=== PATIENT | male | born 1960 | race Caucasian/White ===

== ENCOUNTER 2021-10-08 19:01 | Emergency (ER) | payer BC, SELFPAY ==
[2021-10-08] VITALS (14 sets, daily range): BP systolic 148–184; BP diastolic 85–100; PULSE 72–95; RESP 16–20; TEMP 36.8–37.2; O2SAT 95–99
--- NOTE | 2021-10-08 19:32 | ED.GENADULT ---
HPI - General Adult General Chief complaint: Wound/Laceration Stated complaint: wound to leg Time Seen by Provider: 10/08/21 19:24 History of Present Illness HPI narrative: Patient is a 61-year-old gentleman who presents the emergency department with chief complaint of wound on the posterior aspect of the right leg and generalized rash. Patient states on Saturday the patient states that he felt an area that was uncomfortable in his calf area on the right side the patient states that the area is somewhat bruised and then has been progressively developing a rash over his entire body. Patient reports that it is erythematous patchy nonblanching and is not on urticaria the patient does state that it itches some denies angioedema denies shortness of breath. Related Data Home Medications Medication Instructions Recorded Confirmed atorvastatin 20 mg tablet tablet 10/08/21 clopidogrel 75 mg tablet tablet 10/08/21 lisinopril 20 mg tablet tablet 10/08/21 Allergies Allergy/AdvReac Type Severity Reaction Status Date / Time No Known Allergies Allergy Verified 10/08/21 19:12 Review of Systems Review of Systems: A 10 system review of systems was completed on the patient and is negative except for what is stated in the HPI. Nursing and ancillary documentation was reviewed. PMFSH Comments Peripheral artery disease hypertension high cholesterol Exam Narrative: GENERAL: Well-appearing, well-nourished, and in no acute distress. HEAD: Normocephalic, atraumatic. EYES: PERRLA and EOMI. ENT: Nares clear, no rhinorrhea or epistaxis. Mucous membranes moist. NECK: Supple. CHEST: Clear to auscultation. No respiratory distress. HEART: Regular rate and rhythm. No murmur heard. Normal peripheral pulses. ABDOMEN: Soft, nontender, nondistended, normal active bowel sounds. EXTREMITIES: Normal range of motion. No edema. SKIN: Warm, dry, erythematous rash over the extremities and trunk no angioedema there is an area of bruising NEURO: No focal deficits. Alert and oriented x3. PSYCH: Normal mood and affect. Course Vital Signs Vital signs: Vital Signs Temperature 36.8 C 10/08/21 19:08 Pulse Rate 95 10/08/21 19:08 Respiratory Rate 20 10/08/21 19:08 Blood Pressure 164/88 H 10/08/21 19:08 Pulse Oximetry 99 10/08/21 19:08 Oxygen Delivery Room Air 10/08/21 19:08 Temperature 37.2 C 10/08/21 19:46 Pulse Rate 87 10/08/21 19:20 Respiratory Rate 16 10/08/21 19:20 Blood Pressure 184/100 H 10/08/21 19:20 Pulse Oximetry 97 10/08/21 19:20 Oxygen Delivery Room Air 10/08/21 19:20 Medical Decision Making Vital Signs Vital Signs: Vital Signs Temperature 36.8 C 10/08/21 19:08 Pulse Rate 95 10/08/21 19:08 Respiratory Rate 20 10/08/21 19:08 Blood Pressure 164/88 H 10/08/21 19:08 Pulse Oximetry 99 10/08/21 19:08 Oxygen Delivery Room Air 10/08/21 19:08 Temperature 37.2 C 10/08/21 19:46 Pulse Rate 87 10/08/21 19:20 Respiratory Rate 16 10/08/21 19:20 Blood Pressure 184/100 H 10/08/21 19:20 Pulse Oximetry 97 10/08/21 19:20 Oxygen Delivery Room Air 10/08/21 19:20 Lab Data Result diagrams: 10/08/21 20:03 10/08/21 20:03 Labs: Lab Results 10/08/21 10/08/21 Range/Units 20:03 20:03 WBC 7.0 (4.5-10.0) K/mm3 RBC 4.49 L (4.6-6.20) M/mm3 Hgb 14.3 (14.0-18.0) g/dL Hct 41.7 L (42.0-52.0) % MCV 92.9 (80-100) fl MCH 31.8 (26-34) pg MCHC 34.3 (32-36) g/dl RDW 13.1 (11.5-14.5) % Plt Count 183 (150-375) k/mm3 MPV 9.3 (7.4-10.4) fl Immature Gran % (Auto) 0.3 (0-0.5) % Neut % (Auto) 66.4 (45.5-73.1) % Lymph % (Auto) 17.6 L (18.3-44.2) % [place] % (Auto) 9.0 H (2.6-8.5) % Eos % (Auto) 6.3 H (0-4.4) % Baso % (Auto) 0.4 (0.2-1.2) % Lymph # (Auto) 1.24 (0.9-3.2) K/mm3 [place] # (Auto) 0.6 (0.1-0.6) K/mm3 Eos # (Auto) 0.4 H (0-0.3) K/mm3 Baso # (Auto) 0.0 (0.0-0.1)
[2021-10-08] MEDS: methylPREDNISolone SOD SUCC 125 MG VIAL IV PUSH (20:08)
[2021-10-08] MEDS: FAMOTIDINE 20 MG/2 ML VIAL IV PUSH (20:08)
[2021-10-08 20:09] LABS: Basophils Percent Auto 0.4 % (0.2-1.2); Eosinophils Absolute Auto 0.4 K/mm3 (0-0.3); Eosinophils Percent Auto 6.3 % (0-4.4); Hematocrit 41.7 % (42.0-52.0); Hemoglobin 14.3 g/dL (14.0-18.0); Immature Granulocyte Absolute 0.02 K/mm3 (0.00-0.031); Immature Granulocyte Percent A 0.3 % (0-0.5); Lymphocytes Absolute Auto 1.24 K/mm3 (0.9-3.2); Lymphocytes Percent Auto 17.6 % (18.3-44.2); Mean Corpuscular HGB Conc 34.3 g/dl (32-36); Mean Corpuscular Hemoglobin 31.8 pg (26-34); Mean Corpuscular Volume 92.9 fl (80-100); Mean Platelet Volume 9.3 fl (7.4-10.4); Monocytes Absolute Auto 0.6 K/mm3 (0.1-0.6); Neutrophils Absolute Auto 4.7 K/mm3 (1.3-6.7); Neutrophils Percent Auto 66.4 % (45.5-73.1); Platelet Count Result 183 k/mm3 (150-375); Red Blood Count 4.49 M/mm3 (4.6-6.20); Red Cell Distribution Width 13.1 % (11.5-14.5)
[2021-10-08] MEDS: diphenhydrAMINE HCl INJ 50 MG/ML VIAL 25 MG IV PUSH (20:09)
[2021-10-08] MEDS: DOXYCYCLINE 100 MG/NS 100 ML 100 MG/100 ML BAG IVPB (20:09)
[2021-10-08 20:19] LABS: Anion Gap 5 mmol/L (8-16); Blood Urea Nitrogen 12 mg/dL (9-20); Calcium 9.3 mg/dL (8.4-10.2); Carbon Dioxide 26 mmol/L (22-30); Chloride 105 mmol/L (98-107); Estimated CRCL calculation 79 ml/min; Estimated Glomerular Filt Rate > 60; Glucose 91 mg/dL (65-110); Potassium 3.8 mmol/L (3.4-5.0); Sodium 136 mmol/L (137-145)
== END 2021-10-08 21:03 | disposition home or self-care (01) ==
PROVIDERS: Emergency Provider Emergency Medicine; PCP Internal Medicine
DX: R21 Rash and other nonspecific skin eruption (principal); L03.90 Cellulitis, unspecified; I73.9 Peripheral vascular disease, unspecified; I10 Essential (primary) hypertension; E78.00 Pure hypercholesterolemia, unspecified
CPT/HCPCS: 36415; 80048; 85025; 96365; 96375; 99284; J1200; J2930

== ENCOUNTER 2024-05-28 00:52 | Day surgery (SDC) | payer MEDICARE, BC, SELFPAY ==
[2024-05-22 09:30] VITALS: BMI 24.9
--- NOTE | 2024-05-22 09:46 | PC.NURSE ---
Spoke with _PATIENT_ regarding medication _PLAVIX_. _PATIENT_verbalizes understanding that the last dose is to be taken on _05/22/24_ and the Endoscopist will instruct them when to restart after the procedure.
--- OUTSIDE RECORDS SUMMARY | 2024-05-28 00:55 | XMS_ITS | Data Portability ---
Author Organization [facility], Main Office Address [address] [place] [address] Assessment Encounter Date Assessment Date Assessment LastModified by Organization Details LastModified Time 08/08/2022 08/08/2022 Smoking cessation highly recommended but he is not interested at this time chronic medical problems have been discussed blood work has been ordered sertraline 50 mg a day is been started follow-up in 6 weeks [email or web address] Not available 08/19/2022 14:41:05 10/04/2022 10/04/2022 Warned of the ill effects of tobacco which included but not limited to increased tumors of aerodigestive tract increase incidence of heart attack stroke and cancer that can lead to sudden or chronic medical illness. Continue current therapy. Blood work has been ordered. [email or web address] Not available 10/16/2022 22:08:11 03/27/2023 03/27/2023 Doxycycline him prednisone smoking cessation discussed and is imperative we discussed strategies but it does not sound like he is moving in that direction other diagnosis in assessment and plan have been discussed follow-up 4 months [email or web address] Not available 04/15/2023 21:24:33 Plan of Treatment Reminders Order Date Submit Date Provider Last Modified By Organization Details Last Modified Time Details Appointments None recorded. Lab CBC w/ auto diff 2022 023 [facility] (Lab), [address] [place], [address], 12:21:03 lipid panel, serum 2022 023 [facility] (Lab), [address] [place], [address], 3 09:18:34 CMP, serum or plasma 2022 023 [facility] (Lab), [address] [place], [address], 3 12:30:18 CBC w/ auto diff 2022 023 [facility] (Lab), [address] [place], [address], 3 12:43:32 CMP, serum or plasma 2022 023 [facility] (Lab), [address] [place], [address], 3 14:36:28 lipid panel, serum 2022 023 [facility] (Lab), [address] [place], [address], 3 14:36:30 Referral None recorded. Procedures None recorded. Surgeries None recorded. Imaging None recorded. Medication Orders sertraline 50 mg tablet [email or web address] [place] [address] Pharmacy [facility], [address] [place] [address], [address], 3 16:09:40 doxycycline hyclate 100 mg capsule [address] [facility], [address] [place] [address], [address], 3 17:48:12 prednisone 20 mg tablet [address] [facility], [address] [place] [address], [address], 4 21:23:04 Patient TargetsNo targets recorded. Patient InstructionsNo instructions recorded. Reason for Referral None Reported. Results Created Date Observation Date Name Description Value Unit Range Abnormal Flag Note LastModifiedBy Organization Detail LastModifiedTime 04/05/20 22 04/05/2022 CBC/C OMPLE TE BLD COUNT W/DIF F white blood cells 7.0 x10'3 /uL 4.2-10 .8 Not Available [facility] (Lab) [address] [place], [address], 04/05/2022 14:27:56 04/05/20 22 04/05/2022 CBC/C OMPLE TE BLD COUNT W/DIF F red blood cells 4.95 x10'6 /uL 4.10-5 .80 Not Available [facility] (Lab) [address] [place], [address], 04/05/2022 14:27:56 04/05/20 22 04/05/2022 CBC/C OMPLE TE BLD COUNT W/DIF F hemoglobin 15.6 g/dL 13.2-1 7.0 Not Available [facility] (Lab) [address] [place], [address], 04/05/2022 14:27:56 04/05/20 22 04/05/2022 CBC/C OMPLE TE BLD COUNT W/DIF F hematocrit 47.6 % 39.3-5 0.0 Not Available [facility] (Lab) [address] [place], [address], 04/05/2022 14:27:56 04/05/20 22 04/05/2022 CBC/C OMPLE TE BLD COUNT W/DIF F mean red cell volume 96.2 fL 80.0-9 7.0 Not Available [facility] (Lab) [address] [place], [address], 04/05/2022 14:27:56 04/05/20 22 04/05/2022 CBC/C OMPLE TE BLD COUNT W/DIF F mean red cell hemoglobin 31.5 pg 27.0-3 3.0 Not Available [facility] (Lab) [address] [place], [address], 04/05/2022 14:27:56 04/05/20 22 04/05/2022 CBC/C OMPLE TE BLD COUNT W/DIF F mean RBC HGB concentratio n 32.8 g/dL 31.0-3 6.0 Not Available [facility] (Lab) [address] [place], [address], 04/05/2022 14:27:56 04/05/20 22 04/05/2022 CBC/C OMPLE TE BLD COUNT W/DIF F red cell distribution width 13.2 % 11.8-1 5.5 Not Available [facility] (Lab) [address] [place], [address], 04/05/2022 14:27:56 04/05/20 22 04/05/2022 CBC/C OMPLE TE BLD COUNT W/DIF F platelets 256 x10'3 /uL 150-40 0 Not Available [facility] (Lab) [address] [facility] [place], [address], 04/05/2022 14:27:56 04/05/20 22 04/05/2022 CBC/C OMPLE TE BLD COUNT W/DIF F mean platelet volume 9.6 fL 9.0-12 .4 Not Available [facility] (Lab) [address] [place], [address], 04/05/2022 14:27:56 04/05/20 22 04/05/2022 CBC/C OMPLE TE BLD COUNT W/DIF F neutrophils 57.8 % 39.0-7 2.0 Not Available [facility] (Lab) [address] [facility] [place], [address], 04/05/2022 14:27:56 04/05/20 22 04/05/2022 CBC/C OMPLE TE BLD COUNT W/DIF F lymphocytes 30.8 % 16.0-4 7.0 Not Available [facility] (Lab) [address] [place], [address], 04/05/2022 14:27:56 04/05/20 22 04/05/2022 CBC/C OMPLE TE BLD COUNT W/DIF F monocytes 8.9 % 5.0-12 .0 Not Available [facility] (Lab) [address] [place], [address], 04/05/2022 14:27:56 04/05/20 22 04/05/2022 CBC/C OMPLE TE BLD COUNT W/DIF F eosinophils 1.4 % 1.0-7. 0 Not Available [facility] (Lab) [address] [place], [address], 04/05/2022 14:27:56 04/05/20 22 04/05/2022 CBC/C OMPLE TE BLD COUNT W/DIF F basophils 1.0 % 0.0-2. 0 Not Available [facility] (Lab) [address] [place], [address], 04/05/2022 14:27:56 04/05/20 22 04/05/2022 CBC/C OMPLE TE BLD COUNT W/DIF F immature granulocytes 0.1 % 0.00-0 .50 Not Available [facility] (Lab) [address] [place], [address], 04/05/2022 14:27:56 04/05/20 22 04/05/2022 CBC/C OMPLE TE BLD COUNT W/DIF F neutrophils, absolute count 4.01 x10'3 /uL 1.5-8. 0 Not Available [facility] (Lab) [address] [place], [address], 04/05/2022 14:27:56 04/05/20 22 04/05/2022 CBC/C OMPLE TE BLD COUNT W/DIF F lymphocytes, absolute count 2.14 x10'3 /uL 1.07-3 .43 Not Available [facility] (Lab) [address] [place], [address], 04/05/2022 14:27:56 04/05/20 22 04/05/2022 CBC/C OMPLE TE BLD COUNT W/DIF F monocytes, absolute count 0.62 x10'3 /uL 0.29-0 .99 Not Available [facility] (Lab) [address] [place], [address], 04/05/2022 14:27:56 04/05/20 22 04/05/2022 CBC/C OMPLE TE BLD COUNT W/DIF F eosinophils, absolute count 0.10 x10'3 /uL 0.02-0 .53 Not Available [facility] (Lab) [address] [place], [address], 04/05/2022 14:27:56 04/05/20 22 04/05/2022 CBC/C OMPLE TE BLD COUNT W/DIF F basophils, absolute count 0.07 x10'3 /uL 0.01-0 .08 Not Available [facility] (Lab) [address] [place], [address], 04/05/2022 14:27:56 04/05/20 22 04/05/2022 CBC/C OMPLE TE BLD COUNT W/DIF F immature granulocytes ,absolute 0.01 x10'3 /uL 0.00-0 .05 Not Available [facility] (Lab) [address] [place], [address], 04/05/2022 14:27:56 04/05/20 22 04/05/2022 CBC/C OMPLE TE BLD COUNT W/DIF F nucleated red blood cells 0.0 % -0 Not Available [facility] (Lab) [address] [place], [address], 04/05/2022 14:27:56 04/05/20 22 04/05/2022 CBC/C OMPLE TE BLD COUNT W/DIF F NRBC# 0.00 x10'3 /uL Not Available [facility] (Lab) [address] [place], [address], 04/05/2022 14:27:56 04/05/20 22 04/05/2022 PSA SCREE N PSA medicare screen 3.11 NG/mL 0.00-4 .00 Not Available [facility] (Lab) [address] [place], [address], 04/05/2022 14:03:13 04/05/20 22 04/05/2022 COMPR EHENS SHELLY METAB OLIC PANEL sodium 139 mmol/ L 137-14 5 Not Available [facility] (Lab) [address] [place], [address], 04/05/2022 13:45:17 04/05/20 22 04/05/2022 COMPR EHENS SHELLY METAB OLIC PANEL potassium 4.4 mmol/ L 3.5-5. 1 Not Available [facility] (Lab) [address] [place], [address], 04/05/2022 13:45:17 04/05/20 22 04/05/2022 COMPR EHENS SHELLY METAB OLIC PANEL chloride 105 mmol/ L 98-107 Not Available [facility] (Lab) [address] [place], [address], 04/05/2022 13:45:17 04/05/20 22 04/05/2022 COMPR EHENS SHELLY METAB OLIC PANEL carbon dioxide 27 mmol/ L 22-30 Not Available [facility] (Lab) [address] [place], [address], 04/05/2022 13:45:17 04/05/20 22 04/05/2022 COMPR EHENS SHELLY METAB OLIC PANEL anion gap 11.4 mmol/ L 14-22 low Not Available [facility] (Lab) [address] [place], [address], 04/05/2022 13:45:17 04/05/20 22 04/05/2022 COMPR EHENS SHELLY METAB OLIC PANEL glucose 93 mg/dL 70-99 Not Available [facility] (Lab) [address] [place], [address], 04/05/2022 13:45:17 04/05/20 22 04/05/2022 COMPR EHENS SHELLY METAB OLIC PANEL BUN 15 mg/dL 8-19 Not Available [facility] (Lab) [address] [place], [address], 04/05/2022 13:45:17 04/05/20 22 04/05/2022 COMPR EHENS SHELLY METAB OLIC PANEL creatinine 0.97 mg/dL 0.66-1 .25 Not Available [facility] (Lab) [address] [place], [address], 04/05/2022 13:45:17 04/05/20 22 04/05/2022 COMPR EHENS SHELLY METAB OLIC PANEL GFR >60 Refer ence Range : [place] GFR Healt hy Adult : >60 mL/mi n/1.7 3 m2 Chron ic Kidne y Disea se: 15-60 mL/mi n/1.7 3 m2 Kidne y Failu re: <15/m L/min /1.73 m2 www.n iddk. nih.g ov The MDRD study equat ion has not been valid ated in child chin <18 years of age; pregn ant women ; the elder ly >85 years of age; or in some racia l or ethni c subgr oups, such as Hispa nics. Outsi de the valid ated hernandez eters , estim ated GFR is less accur ate, requi ring clini polo judgm ent on a case- by-ca se basis . Clini polo inter preta tion for other races and ages must be made by the clini greg. The MDRD study equat ion has not been valid ated for the evalu ation of serum creat inine relat ed to nutri sharon l statu s or medic ation usage . For perso ns <18 years of age, a pedia tric GFR calcu lator is avail able on the [facility] websi te: https ://peyton w.smitha dragan.o rg/pr ofess ional s/kdo qi/gf r_cal culat or Not Available [facility] (Lab) [address] [place], [address], 04/05/2022 13:45:17 04/05/20 22 04/05/2022 COMPR EHENS SHELLY METAB OLIC PANEL alkaline phosphatase 81 U/L 38-126 Not Available [facility] (Lab) [address] [place], [address], 04/05/2022 13:45:17 04/05/20 22 04/05/2022 COMPR EHENS SHELLY METAB OLIC PANEL alanine aminotransfe rase 28 U/L 0-50 Not Available [facility] (Lab) [address] [place], [address], 04/05/2022 13:45:17 04/05/20 22 04/05/2022 COMPR EHENS SHELLY METAB OLIC PANEL aspartate aminotransfe rase 31 U/L 15-46 Not Available [facility] (Lab) [address] [place], [address], 04/05/2022 13:45:17 04/05/20 22 04/05/2022 COMPR EHENS SHELLY METAB OLIC PANEL bilirubin, total 0.80 mg/dL 0.20-1 .30 Not Available [facility] (Lab) [address] [place], [address], 04/05/2022 13:45:17 04/05/20 22 04/05/2022 COMPR EHENS SHELLY METAB OLIC PANEL calcium 9.9 mg/dL 8.4-10 .2 Not Available [facility] (Lab) [address] [place], [address], 04/05/2022 13:45:17 04/05/20 22 04/05/2022 COMPR EHENS SHELLY METAB OLIC PANEL total protein 7.2 g/dL 6.3-8. 2 Not Available [facility] (Lab) [address] [facility] [place], [address], 04/05/2022 13:45:17 04/05/20 22 04/05/2022 COMPR EHENS SHELLY METAB OLIC PANEL albumin 4.5 g/dL 3.0-4. 4 high Not Available [facility] (Lab) [address] [place], [address], 04/05/2022 13:45:17 04/05/20 22 04/05/2022 COMPR EHENS SHELLY METAB OLIC PANEL globulin 2.7 g/dL 2.6-4. 2 Not Available [facility] (Lab) [address] [place], [address], 04/05/2022 13:45:17 04/05/20 22 04/05/2022 COMPR EHENS SHELLY METAB OLIC PANEL A/G ratio 1.7 ratio 1.0-2. 0 Not Available [facility] (Lab) [address] [place], [address], 04/05/2022 13:45:17 04/05/20 22 04/05/2022 LIPID PANEL cholesterol 165 mg/dL 140-19 9 [facility] NSUS RECOM MENDA TION FOR MIRTA STERO L: ADULT CHILD LOW RISK: <200 <170 BORDE RLINE : <200- 239 ----- HIGH RISK: >240 >200 Not Available [facility] (Lab) [address] [place], [address], 04/05/2022 13:45:06 04/05/20 22 04/05/2022 LIPID PANEL triglyceride s 73 mg/dL 0-150 [facility] MONICA NSUS REPOR T RECOM MENDA TION FOR TRIGL YCERI AMARJIT: ADULT CHILD LOW RISK: <150 ----- BODER LINE: 150-1 99 ----- HIGH RISK: >200 ----- Not Available [facility] (Lab) [address] [place], [address], 04/05/2022 13:45:06 04/05/20 22 04/05/2022 LIPID PANEL HDL cholesterol 57 mg/dL 40- Not Available [facility] (Lab) [address] [place], [address], 04/05/2022 13:45:06 04/05/20 22 04/05/2022 LIPID PANEL LDL cholesterol, calculated 93 mg/dL 0-130 [facility] NSUS REPOR T RECOM MENDA TIONS FOR LDL: ADULT CHILD LOW RISK <130 <110 (OPTI MAL LDL) <100 ----- TIM RLINE : 130-1 59 ----- HIGH RISK: >160 >130 A TRIGL YCERI DE RESUL T >400 INVAL IDATE S THE CALCU LATIO N FOR LDL FRACT IONAT ION - THE LDL RESUL T WILL NOT BE REPOR LISA. Not Available [facility] (Lab) [address] [place], [address], 04/05/2022 13:45:06 04/05/20 22 04/05/2022 URINE MICRO SCOPI C EXAM/ IRIS white blood cells 0-8 /i??h pfi?? 0-8 Not Available [facility] (Lab) [address] [place], [address], 04/05/2022 13:33:21 04/05/20 22 04/05/2022 URINE MICRO SCOPI C EXAM/ IRIS red blood cells 0-4 /i??h pfi?? 0-4 Not Available [facility] (Lab) [address] [place], [address], 04/05/2022 13:33:21 04/05/20 22 04/05/2022 URINE MICRO SCOPI C EXAM/ IRIS bacteria occasi onal abnormal Not Available [facility] (Lab) [address] [place], [address], 04/05/2022 13:33:21 04/05/20 22 04/05/2022 URINE MICRO SCOPI C EXAM/ IRIS mucous occasi onal /i??l pfi?? abnormal Not Available [facility] (Lab) [address] [place], [address], 04/05/2022 13:33:21 04/05/20 22 04/05/2022 URINE MICRO SCOPI C EXAM/ IRIS squamous epithelial none /i??l pfi?? Not Available [facility] (Lab) [address] [place], [address], 04/05/2022 13:33:21 04/05/20 22 04/05/2022 URINE MICRO SCOPI C EXAM/ IRIS sperm presen t /i??h pfi?? abnormal Not Available [facility] (Lab) [address] [place], [address], 04/05/2022 13:33:21 05/11/19 23 05/11/2022 urina lysis , dipst ick Leukocytes (reference range: negative kayla/ l) Negati ve Not Available [facility] [place] [address] [facility], [address], [address], 05/11/2022 14:21:17 05/11/19 23 05/11/2022 urina lysis , dipst ick Nitrite (reference rage: negative mg/dl) negati ve Not Available [facility] [address] [place] [address], [address], [address], 05/11/2022 14:21:17 05/11/19 23 05/11/2022 urina lysis , dipst ick Urobilinogen (reference range: 0.2-1 mg/dl) 0.2 Not Available [place] [address], [place], [address], 05/11/2022 14:21:17 05/11/19 23 05/11/2022 urina lysis , dipst ick Protein (reference range: negative mg/dl) Negati ve Not Available [address], [address], 05/11/2022 14:21:17 05/11/19 23 05/11/2022 urina lysis , dipst ick pH (reference range: 5-7) 6.0 Not Available [address], [address], 05/11/2022 14:21:17 05/11/19 23 05/11/2022 urina lysis , dipst ick Blood (reference range: negative Eliel/ l) Negati ve Not Available [place] [address], [place], [address], 05/11/2022 14:21:17 05/11/19 23 05/11/2022 urina lysis , dipst ick Specific Logan (reference range: 1.005-1.030) 1.005 Not Available [address], [address], 05/11/2022 14:21:17 05/11/19 23 05/11/2022 urina lysis , dipst ick Ketone (reference range: negative mg/dl) Negati ve Not Available [address] [place] [address], [place], [address], 05/11/2022 14:21:17 05/11/19 23 05/11/2022 urina lysis , dipst ick Bilirubin (reference range: negative mg/dl) Negati ve Not Available [address], [address], 05/11/2022 14:21:17 05/11/19 23 05/11/2022 urina lysis , dipst ick Glucose (reference range: negative mg/dl) Negati ve Not Available [address], [place] [address], [place], [address], 05/11/2022 14:21:17 05/11/19 23 05/11/2022 urina lysis , dipst ick Appearance Clear Not Available [place] [address], [place], [address], 05/11/2022 14:21:17 05/11/19 23 05/11/2022 urina lysis , dipst ick Color Pale Yellow Not Available [address] [address], [place], [address], 05/11/2022 14:21:17 08/09/19 23 08/08/2022 CBC/C OMPLE TE BLD COUNT W/DIF F white blood cells 6.1 x10'3 /uL 4.2-10 .8 Not Available [facility] (Lab) [address] [place] [address], [address], 08/08/2022 12:21:03 08/09/19 23 08/08/2022 CBC/C OMPLE TE BLD COUNT W/DIF F red blood cells 4.83 x10'6 /uL 4.10-5 .80 Not Available [facility] (Lab) [address] [place], [address], 08/08/2022 12:21:03 08/09/19 23 08/08/2022 CBC/C OMPLE TE BLD COUNT W/DIF F hemoglobin 15.2 g/dL 13.2-1 7.0 Not Available [facility] (Lab) [address] [facility] [place], [address], 08/08/2022 12:21:03 08/09/19 23 08/08/2022 CBC/C OMPLE TE BLD COUNT W/DIF F hematocrit 46.3 % 39.3-5 0.0 Not Available [facility] (Lab) [address] [place], [address], 08/08/2022 12:21:03 08/09/19 23 08/08/2022 CBC/C OMPLE TE BLD COUNT W/DIF F mean red cell volume 95.9 fL 80.0-9 7.0 Not Available [facility] (Lab) [address] [place], [address], 08/08/2022 12:21:03 08/09/19 23 08/08/2022 CBC/C OMPLE TE BLD COUNT W/DIF F mean red cell hemoglobin 31.5 pg 27.0-3 3.0 Not Available [facility] (Lab) [address] [place], [address], 08/08/2022 12:21:03 08/09/19 23 08/08/2022 CBC/C OMPLE TE BLD COUNT W/DIF F mean RBC HGB concentratio n 32.8 g/dL 31.0-3 6.0 Not Available [facility] (Lab) [address] [place], [address], 08/08/2022 12:21:03 08/09/19 23 08/08/2022 CBC/C OMPLE TE BLD COUNT W/DIF F red cell distribution width 13.1 % 11.8-1 5.5 Not Available [facility] (Lab) [address] [place], [address], 08/08/2022 12:21:03 08/09/19 23 08/08/2022 CBC/C OMPLE TE BLD COUNT W/DIF F platelets 242 x10'3 /uL 150-40 0 Not Available [facility] (Lab) [address] [place], [address], 08/08/2022 12:21:03 08/09/19 23 08/08/2022 CBC/C OMPLE TE BLD COUNT W/DIF F mean platelet volume 9.2 fL 9.0-12 .4 Not Available [facility] (Lab) [address] [place], [address], 08/08/2022 12:21:03 08/09/19 23 08/08/2022 CBC/C OMPLE TE BLD COUNT W/DIF F neutrophils 52.7 % 39.0-7 2.0 Not Available [facility] (Lab) [address] [place], [address], 08/08/2022 12:21:03 08/09/19 23 08/08/2022 CBC/C OMPLE TE BLD COUNT W/DIF F lymphocytes 34.4 % 16.0-4 7.0 Not Available [facility] (Lab) [address] [place], [address], 08/08/2022 12:21:03 08/09/19 23 08/08/2022 CBC/C OMPLE TE BLD COUNT W/DIF F monocytes 8.9 % 5.0-12 .0 Not Available [facility] (Lab) [address] [place], [address], 08/08/2022 12:21:03 08/09/19 23 08/08/2022 CBC/C OMPLE TE BLD COUNT W/DIF F eosinophils 2.8 % 1.0-7. 0 Not Available [facility] (Lab) [address] [place], [address], 08/08/2022 12:21:03 08/09/19 23 08/08/2022 CBC/C OMPLE TE BLD COUNT W/DIF F basophils 1.0 % 0.0-2. 0 Not Available [facility] (Lab) [address] [place], [address], 08/08/2022 12:21:03 08/09/1908/08/2022 CBC/C OMPLE TE BLD COUNT W/DIF F immature granulocytes 0.2 % 0.00-0 .50 Not Available [facility] (Lab) [address] [place], [address], 08/08/2022 12:21:03 08/09/19 23 08/08/2022 CBC/C OMPLE TE BLD COUNT W/DIF F neutrophils, absolute count 3.22 x10'3 /uL 1.5-8. 0 Not Available [facility] (Lab) [address] [place], [address], 08/08/2022 12:21:03 08/09/19 23 08/08/2022 CBC/C OMPLE TE BLD COUNT W/DIF F lymphocytes, absolute count 2.10 x10'3 /uL 1.07-3 .43 Not Available [facility] (Lab) [address] [place], [address], 08/08/2022 12:21:03 08/09/19 23 08/08/2022 CBC/C OMPLE TE BLD COUNT W/DIF F monocytes, absolute count 0.54 x10'3 /uL 0.29-0 .99 Not Available [facility] (Lab) [address] [place], [address], 08/08/2022 12:21:03 04/26/20 23 08/08/2022 CBC/C OMPLE TE BLD COUNT W/DIF F eosinophils, absolute count 0.17 x10'3 /uL 0.02-0 .53 Not Available [facility] (Lab) [address] [place], [address], 08/08/2022 12:21:03 08/09/19 23 08/08/2022 CBC/C OMPLE TE BLD COUNT W/DIF F basophils, absolute count 0.06 x10'3 /uL 0.01-0 .08 Not Available [facility] (Lab) [address] [place], [address], 08/08/2022 12:21:03 08/09/19 23 08/08/2022 CBC/C OMPLE TE BLD COUNT W/DIF F immature granulocytes ,absolute 0.01 x10'3 /uL 0.00-0 .05 Not Available [facility] (Lab) [address] [place], [address], 08/08/2022 12:21:03 08/09/19 23 08/08/2022 CBC/C OMPLE TE BLD COUNT W/DIF F nucleated red blood cells 0.0 % -0 Not Available [facility] (Lab) [address] [place], [address], 08/08/2022 12:21:03 08/09/19 23 08/08/2022 CBC/C OMPLE TE BLD COUNT W/DIF F NRBC# 0.00 x10'3 /uL Not Available [facility] (Lab) [address] [place], [address], 08/08/2022 12:21:03 08/09/19 23 08/08/2022 COMPR EHENS SHELLY METAB OLIC PANEL sodium 137 mmol/ L 137-14 5 Not Available [facility] (Lab) [address] [place], [address], 08/08/2022 12:30:18 08/09/19 23 08/08/2022 COMPR EHENS SHELLY METAB OLIC PANEL potassium 4.2 mmol/ L 3.5-5. 1 Not Available [facility] (Lab) [address] [place], [address], 08/08/2022 12:30:18 08/09/19 23 08/08/2022 COMPR EHENS SHELLY METAB OLIC PANEL chloride 105 mmol/ L 98-107 Not Available [facility] (Lab) [address] [place], [address], 08/08/2022 12:30:18 08/09/19 23 08/08/2022 COMPR EHENS SHELLY METAB OLIC PANEL carbon dioxide 29 mmol/ L 22-30 Not Available [facility] (Lab) [address] [place], [address], 08/08/2022 12:30:18 08/09/19 23 08/08/2022 COMPR EHENS SHELLY METAB OLIC PANEL anion gap 7.2 mmol/ L 14-22 low Not Available [facility] (Lab) [address] [place], [address], 08/08/2022 12:30:18 08/09/19 23 08/08/2022 COMPR EHENS SHELLY METAB OLIC PANEL glucose 92 mg/dL 70-99 Not Available [facility] (Lab) [address] [place], [address], 08/08/2022 12:30:18 08/09/19 23 08/08/2022 COMPR EHENS SHELLY METAB OLIC PANEL BUN 18 mg/dL 8-19 Not Available [facility] (Lab) [address] [place], [address], 08/08/2022 12:30:18 08/09/19 23 08/08/2022 COMPR EHENS SHELLY METAB OLIC PANEL creatinine 0.97 mg/dL 0.66-1 .25 Not Available [facility] (Lab) [address] [place], [address], 08/08/2022 12:30:18 08/09/19 23 08/08/2022 COMPR EHENS SHELLY METAB OLIC PANEL GFR >60 Refer ence Range : [place] GFR Healt hy Adult : >60 mL/mi n/1.7 3 m2 Chron ic Kidne y Disea se: 15-60 mL/mi n/1.7 3 m2 Kidne y Failu re: <15/m L/min /1.73 m2 [email or web address] ov The MDRD study equat ion has not been valid ated in child chin <18 years of age; pregn ant women ; the elder ly >85 years of age; or in some racia l or ethni c subgr oups, such as Hispa nics. Outsi de the valid ated hernandez eters , estim ated GFR is less accur ate, requi ring clini polo judgm ent on a case- by-ca se basis . Clini polo inter preta tion for other races and ages must be made by the clini greg. The MDRD study equat ion has not been valid ated for the evalu ation of serum creat inine relat ed to nutri sharon l statu s or medic ation usage . For perso ns <18 years of age, a pedia tric GFR calcu lator is avail able on the [facility] websi te: https ://peyton archibald.kasi mojica/pr ofess ional s/kdo qi/gf r_cal culat or Not Available [facility] (Lab) [address] [place], [address], 08/08/2022 12:30:18 08/09/1908/08/2022 COMPR EHENS SHELLY METAB OLIC PANEL alkaline phosphatase 81 U/L 38-126 Not Available [facility] (Lab) [address] [place], [address], 08/08/2022 12:30:18 08/09/19 23 08/08/2022 COMPR EHENS SHELLY METAB OLIC PANEL alanine aminotransfe rase 22 U/L 0-50 Not Available [facility] (Lab) [address] [place], [address], 08/08/2022 12:30:18 08/09/19 23 08/08/2022 COMPR EHENS SHELLY METAB OLIC PANEL aspartate aminotransfe rase 25 U/L 15-46 Not Available [facility] (Lab) [address] [place], [address], 08/08/2022 12:30:18 08/09/19 23 08/08/2022 COMPR EHENS SHELLY METAB OLIC PANEL bilirubin, total 0.50 mg/dL 0.20-1 .30 Not Available [facility] (Lab) [address] [place], [address], 08/08/2022 12:30:18 08/09/19 23 08/08/2022 COMPR EHENS SHELLY METAB OLIC PANEL calcium 9.7 mg/dL 8.4-10 .2 Not Available [facility] (Lab) [address] [place], [address], 08/08/2022 12:30:18 08/09/19 23 08/08/2022 COMPR EHENS SHELLY METAB OLIC PANEL total protein 7.0 g/dL 6.3-8. 2 Not Available [facility] (Lab) [address] [place], [address], 08/08/2022 12:30:18 08/09/19 23 08/08/2022 COMPR EHENS SHELLY METAB OLIC PANEL albumin 4.1 g/dL 3.0-4. 4 Not Available [facility] (Lab) [address] [place], [address], 08/08/2022 12:30:18 08/09/19 23 08/08/2022 COMPR EHENS SHELLY METAB OLIC PANEL globulin 2.9 g/dL 2.6-4. 2 Not Available [facility] (Lab) [address] [place], [address], 08/08/2022 12:30:18 08/09/19 23 08/08/2022 COMPR EHENS SHELLY METAB OLIC PANEL A/G ratio 1.4 ratio 1.0-2. 0 Not Available [facility] (Lab) [address] [place], [address], 08/08/2022 12:30:18 03/20/20 23 03/20/2023 CBC/C OMPLE TE BLD COUNT W/DIF F white blood cells 5.4 x10'3 /uL 4.2-10 .8 Not Available [facility] (Lab) [address] [place], [address], 03/20/2023 12:43:32 03/20/20 23 03/20/2023 CBC/C OMPLE TE BLD COUNT W/DIF F red blood cells 4.54 x10'6 /uL 4.10-5 .80 Not Available [facility] (Lab) [address] [place], [address], 03/20/2023 12:43:32 03/20/20 23 03/20/2023 CBC/C OMPLE TE BLD COUNT W/DIF F hemoglobin 14.9 g/dL 13.2-1 7.0 Not Available [facility] (Lab) [address] [place], [address], 03/20/2023 12:43:32 03/20/20 23 03/20/2023 CBC/C OMPLE TE BLD COUNT W/DIF F hematocrit 44.2 % 39.3-5 0.0 Not Available [facility] (Lab) [address] [place], [address], 03/20/2023 12:43:32 03/20/20 23 03/20/2023 CBC/C OMPLE TE BLD COUNT W/DIF F mean red cell volume 97.4 fL 80.0-9 7.0 high Not Available [facility] (Lab) [address] [place], [address], 03/20/2023 12:43:32 03/20/20 23 03/20/2023 CBC/C OMPLE TE BLD COUNT W/DIF F mean red cell hemoglobin 32.8 pg 27.0-3 3.0 Not Available [facility] (Lab) [address] [place], [address], 03/20/2023 12:43:32 03/20/20 23 03/20/2023 CBC/C OMPLE TE BLD COUNT W/DIF F mean RBC HGB concentratio n 33.7 g/dL 31.0-3 6.0 Not Available [facility] (Lab) [address] [place], [address], 03/20/2023 12:43:32 03/20/20 23 03/20/2023 CBC/C OMPLE TE BLD COUNT W/DIF F red cell distribution width 12.8 % 11.8-1 5.5 Not Available [facility] (Lab) [address] [place], [address], 03/20/2023 12:43:32 03/20/20 23 03/20/2023 CBC/C OMPLE TE BLD COUNT W/DIF F platelets 229 x10'3 /uL 150-40 0 Not Available [facility] (Lab) [address] [place], [address], 03/20/2023 12:43:32 03/20/20 23 03/20/2023 CBC/C OMPLE TE BLD COUNT W/DIF F mean platelet volume 9.7 fL 9.0-12 .4 Not Available [facility] (Lab) [address] [place], [address], 03/20/2023 12:43:32 03/20/2003/20/2023 CBC/C OMPLE TE BLD COUNT W/DIF F neutrophils 46.6 % 39.0-7 2.0 Not Available [facility] (Lab) [address] [place], [address], 03/20/2023 12:43:32 03/20/20 23 03/20/2023 CBC/C OMPLE TE BLD COUNT W/DIF F lymphocytes 37.5 % 16.0-4 7.0 Not Available [facility] (Lab) [address] [place], [address], 03/20/2023 12:43:32 03/20/2003/20/2023 CBC/C OMPLE TE BLD COUNT W/DIF F monocytes 10.7 % 5.0-12 .0 Not Available [facility] (Lab) [address] [place], [address], 03/20/2023 12:43:32 03/20/2003/20/2023 CBC/C OMPLE TE BLD COUNT W/DIF F eosinophils 3.9 % 1.0-7. 0 Not Available [facility] (Lab) [address] [place], [address], 03/20/2023 12:43:32 03/20/20 23 03/20/2023 CBC/C OMPLE TE BLD COUNT W/DIF F basophils 1.1 % 0.0-2. 0 Not Available [facility] (Lab) [address] [place], [address], 03/20/2023 12:43:32 03/20/2003/20/2023 CBC/C OMPLE TE BLD COUNT W/DIF F immature granulocytes 0.2 % 0.00-0 .50 Not Available [facility] (Lab) [address] [place], [address], 03/20/2023 12:43:32 03/20/20 23 03/20/2023 CBC/C OMPLE TE BLD COUNT W/DIF F neutrophils, absolute count 2.54 x10'3 /uL 1.5-8. 0 Not Available [facility] (Lab) [address] [place], [address], 03/20/2023 12:43:32 03/20/20 23 03/20/2023 CBC/C OMPLE TE BLD COUNT W/DIF F lymphocytes, absolute count 2.04 x10'3 /uL 1.07-3 .43 Not Available [facility] (Lab) [address] [place], [address], 03/20/2023 12:43:32 03/20/20 23 03/20/2023 CBC/C OMPLE TE BLD COUNT W/DIF F monocytes, absolute count 0.58 x10'3 /uL 0.29-0 .99 Not Available [facility] (Lab) [address] [place], [address], 03/20/2023 12:43:32 03/20/20 23 03/20/2023 CBC/C OMPLE TE BLD COUNT W/DIF F eosinophils, absolute count 0.21 x10'3 /uL 0.02-0 .53 Not Available [facility] (Lab) [address] [place], [address], 03/20/2023 12:43:32 03/20/20 23 03/20/2023 CBC/C OMPLE TE BLD COUNT W/DIF F basophils, absolute count 0.06 x10'3 /uL 0.01-0 .08 Not Available [facility] (Lab) [address] [place], [address], 03/20/2023 12:43:32 03/20/20 23 03/20/2023 CBC/C OMPLE TE BLD COUNT W/DIF F immature granulocytes ,absolute 0.01 x10'3 /uL 0.00-0 .05 Not Available [facility] (Lab) [address] [place], [address], 03/20/2023 12:43:32 03/20/20 23 03/20/2023 CBC/C OMPLE TE BLD COUNT W/DIF F nucleated red blood cells 0.0 % -0 Not Available [facility] (Lab) [address] [place], [address], 03/20/2023 12:43:32 03/20/20 23 03/20/2023 CBC/C OMPLE TE BLD COUNT W/DIF F NRBC# 0.00 x10'3 /uL Not Available [facility] (Lab) [address] [place], [address], 03/20/2023 12:43:32 03/20/20 23 03/20/2023 COMPR EHENS SHELLY METAB OLIC PANEL sodium 137 mmol/ L 137-14 5 Not Available [facility] (Lab) [address] [place], [address], 03/20/2023 14:36:28 03/20/20 23 03/20/2023 COMPR EHENS SHELLY METAB OLIC PANEL potassium 4.4 mmol/ L 3.5-5. 1 Not Available [facility] (Lab) [address] [place], [address], 03/20/2023 14:36:28 03/20/20 23 03/20/2023 COMPR EHENS SHELLY METAB OLIC PANEL chloride 106 mmol/ L 98-107 Not Available [facility] (Lab) [address] [place], [address], 03/20/2023 14:36:28 03/20/20 23 03/20/2023 COMPR EHENS SHELLY METAB OLIC PANEL carbon dioxide 27 mmol/ L 22-30 Not Available [facility] (Lab) [address] [place], [address], 03/20/2023 14:36:28 03/20/20 23 03/20/2023 COMPR EHENS SHELLY METAB OLIC PANEL anion gap 8.4 mmol/ L 14-22 low Not Available [facility] (Lab) [address] [place], [address], 03/20/2023 14:36:28 03/20/20 23 03/20/2023 COMPR EHENS SHELLY METAB OLIC PANEL glucose 100 mg/dL 70-99 high Not Available [facility] (Lab) [address] [place], [address], 03/20/2023 14:36:28 03/20/20 23 03/20/2023 COMPR EHENS SHELLY METAB OLIC PANEL BUN 13 mg/dL 8-19 Not Available [facility] (Lab) [address] [place], [address], 03/20/2023 14:36:28 03/20/20 23 03/20/2023 COMPR EHENS SHELLY METAB OLIC PANEL creatinine 0.90 mg/dL 0.66-1 .25 Not Available [facility] (Lab) [address] [place] [address], [address], 03/20/2023 14:36:28 03/20/20 23 03/20/2023 COMPR EHENS SHELLY METAB OLIC PANEL GFR >60 Refer ence Range : [place] GFR Healt hy Adult : >60 mL/mi n/1.7 3 m2 Chron ic Kidne y Disea se: 15-60 mL/mi n/1.7 3 m2 Kidne y Failu re: <15/m L/min /1.73 m2 www.n iddk. nih.g ov The MDRD study equat ion has not been valid ated in child chin <18 years of age; pregn ant women ; the elder ly >85 years of age; or in some racia l or ethni c subgr oups, such as Hispa nics. Outsi de the valid ated hernandez eters , estim ated GFR is less accur ate, requi ring clini polo judgm ent on a case- by-ca se basis . Clini polo inter preta tion for other races and ages must be made by the clini greg. The MDRD study equat ion has not been valid ated for the evalu ation of serum creat inine relat ed to nutri sharon l statu s or medic ation usage . For perso ns <18 years of age, a pedia tric GFR calcu lator is avail able on the [facility] websi te: https ://peyton w.smitha colony.o rg/pr ofess ional s/kdo qi/gf r_cal culat or Not Available [facility] (Lab) [address] [place], [address], 03/20/2023 14:36:28 03/20/2003/20/2023 COMPR EHENS SHELLY METAB OLIC PANEL alkaline phosphatase 68 U/L 38-126 Not Available [facility] (Lab) [address] [place], [address], 03/20/2023 14:36:28 03/20/20 23 03/20/2023 COMPR EHENS SHELLY METAB OLIC PANEL alanine aminotransfe rase 23 U/L 0-50 Not Available [facility] (Lab) [address] [place], [address], 03/20/2023 14:36:28 03/20/20 23 03/20/2023 COMPR EHENS SHELLY METAB OLIC PANEL aspartate aminotransfe rase 28 U/L 15-46 Not Available [facility] (Lab) [address] [place], [address], 03/20/2023 14:36:28 03/20/20 23 03/20/2023 COMPR EHENS SHELLY METAB OLIC PANEL bilirubin, total 0.70 mg/dL 0.20-1 .30 Not Available [facility] (Lab) [address] [place], [address], 03/20/2023 14:36:28 03/20/20 03/20/2023 COMPR EHENS SHELLY METAB OLIC PANEL calcium 9.4 mg/dL 8.4-10 .2 Not Available [facility] (Lab) [address] [place], [address], 03/20/2023 14:36:28 03/20/20 23 03/20/2023 COMPR EHENS SHELLY METAB OLIC PANEL total protein 6.6 g/dL 6.3-8. 2 Not Available [facility] (Lab) [address] [place], [address], 03/20/2023 14:36:28 03/20/20 23 03/20/2023 COMPR EHENS SHELLY METAB OLIC PANEL albumin 3.8 g/dL 3.0-4. 4 Not Available [facility] (Lab) [address] [place], [address], 03/20/2023 14:36:28 03/20/20 23 03/20/2023 COMPR EHENS SHELLY METAB OLIC PANEL globulin 2.8 g/dL 2.6-4. 2 Not Available [facility] (Lab) [address] [place], [address], 03/20/2023 14:36:28 03/20/20 23 03/20/2023 COMPR EHENS SHELLY METAB OLIC PANEL A/G ratio 1.4 ratio 1.0-2. 0 Not Available [facility] (Lab) [address] [place] [address], [address], 03/20/2023 14:36:28 03/20/20 23 03/20/2023 LIPID PANEL cholesterol 151 mg/dL 140-19 9 [facility] MONICA NSUS RECOM MENDA TION FOR MIRTA STERO L: ADULT CHILD LOW RISK: <200 <170 BORDE RLINE : <200- 239 ----- HIGH RISK: >240 >200 Not Available [facility] (Lab) [address] [place] [address], [address], 03/20/2023 14:36:30 03/20/20 23 03/20/2023 LIPID PANEL triglyceride s 107 mg/dL 0-150 NIH MONICA NSUS REPOR T RECOM MENDA TION FOR TRIGL YCERI AMARJIT: ADULT CHILD LOW RISK: <150 ----- BODER LINE: 150-1 99 ----- HIGH RISK: >200 ----- Not Available [facility] (Lab) [address] [place], [address], 03/20/2023 14:36:30 03/20/20 23 03/20/2023 LIPID PANEL HDL cholesterol 43 mg/dL 40- Not Available [facility] (Lab) [address] [place], [address], 03/20/2023 14:36:30 03/20/20 23 03/20/2023 LIPID PANEL LDL cholesterol, calculated 87 mg/dL 0-130 [facility] MONICA NSUS REPOR T RECOM MENDA TIONS FOR LDL: ADULT CHILD LOW RISK <130 <110 (OPTI MAL LDL) <100 ----- BORDE RLINE : 130-1 59 ----- HIGH RISK: >160 >130 A TRIGL YCERI DE RESUL T >400 INVAL IDATE S THE CALCU LATIO N FOR LDL FRACT IONAT ION - THE LDL RESUL T WILL NOT BE REPOR LISA. Not Available [facility] (Lab) [address] [place], [address], 03/20/2023 14:36:30 05/11/19 23 05/11/2022 , sara er No observ ation record ed. [id number] [facility] [address], [address], [place], [address], 06/13/2022 05:27:26 10/22/19 24 10/22/2023 XR, cervi polo spine , 4 or 5 view [facility] [address] [place] [address] Patien t Name: ORAL PICHARDO Access ion #: [id number] Sex: M : 1959 8 Dictat ed By: Mehran Andrew Attend ing Physic gregorio: INGRID LONDON Physic gregorio: INGRID LONDON Exam Date: 2023 14:59 PM Exam Name: XR C SPINE 4-5V Admitt ing Diagno sis(es ): ACCESS ION #: [facility]-7 [id number] INDICA TION: Cervic algia COMPAR NARAYAN: None TECHNI QUE: 4 views of the cervic al spine were obtain ed. FINDIN GS: The cervic al verteb ral alignm ent is normal . The preden viola space is normal . The interv ertebr al disc spaces are well-m aintai corky. No signif icant facet arthro carolyn is noted. No acute fractu re, verteb ral compre ssion deform ity or aggres sive osseou s lesion s. The imaged lung apices are unrema rkable . IMPRES KEHINDE: No acute fractu re. Electr onical ly Signed by: Mehran Andrew at 2023 15:27: 30 PM Page 1 [email or web address] [facility] (Imaging) [address] [place], [address], 10/27/2023 10:55:39 03/24/20 24 03/24/2024 LDCT, chest , for lung cance r scree [facility] [address] [id number] [phone] Patien t Name: ORAL PICHARDO Access ion #: [id number] Sex: M : 1959 6 Dictat ed By: Deion Bach Attend ing Physic gregorio: INGRID LONDON Physic gregorio: INGRID LONDON Exam Date: 2023 07:37 AM Exam Name: CT LOW DOSE CNCR SCREEN ING Admitt ing Diagno sis(es ): Proced ure: CT LOW DOSE CNCR SCREEN ING Reason for study/ Clinic al Histor y: tobacc o use Compar narayan Study: None availa ble at time of dictat ion. Exam Date: 2023 07:37 AM TECHNI QUE: Multid etecto r CT of the chest was perfor med from the lung apices to the upper abdome n withou t the use of intrav enous contra ct. Axial, ortiz l and sagitt al multip lanar reform ats were perfor med. Radiat ion Dose Inform ation: CT Dose: CTDI volume is 1.3 mGy. Dose-l ength produc t is 65.2 mGy*cm The dose indica tors for CT are the volume Comput ed Tomogr aphy (CT) Dose Index (CTDIv ol) and the Dose Length Produc t (DLP), and are measur ed in units of mGy and mGy-cm , respec tively . These indica tors are not patien t dose, but values genera lisa from the CT scanne r acquis ition factor s. The report includ es radiat ion exposu re data for exposu res receiv ed during this examin ation. FINDIN GS: Lower neck: Normal thyroi d. Lungs: Biapic al scarri ng. No focal consol idatio n, pleura l effusi on or pneumo thorax . Heart/ Vascul ar Struct ures: Cardio megaly . Ortiz ry artery calcif icatio ns. Vascul ar calcif icatio ns of the aorta. Page 1 [facility] [address] [address] Patien t Name: ORAL PICHARDO Access ion #: [id number] Sex: M : 1959 6 Dictat ed By: Deion Bach Attend ing Physic gregorio: WM SKINNERi ng Physic gregorio: INGRID LONDON Exam Date: 2023 07:37 AM Exam Name: CT LOW DOSE CNCR SCREEN ING Admitt ing Diagno sis(es ): Lymph Nodes: No adenop athy Pleura : No pleura l effusi on or signif icant pneumo thorax . Muscul oskele viola: No acute osseou s abnorm ality. Degene rative change s of the spine. Soft tissue s: Normal . Upper abdome n: Limite d portio ns of the upper abdome n are unrema rkable . IMPRES KEHINDE: No acute intrat horaci c abnorm ality. Lung-R ADS Catego ry 1: Contin ue annual screen ing with LDCT (versi on 1.1 additi on) Radiat ion optimi zation : All CT scans at this facili ty use at least one of these dose optimi zation techni ques: automa lisa exposu re contro l mA and/or kV adjust ment per patien t size (inclu amarjit target ed exams where dose is matche d to clinic al indica tion) or iterat shelly recons tructi on. Electr onical ly Signed by: Deion Bach at 2023 10:41: 00 AM Page 2 [email or web address] [facility] (Imaging) [address] [place], [address], 05/21/2024 15:01:31 Result Notes None recorded. Problems Name Problem SNOMED Code Status Onset Date Resolution Date Notes Provider Name and Address Organization Details Recorded Time Tobacco user 251632156 Active Not Available [facility] 3 07:44:22 Benign essential hypertension 0214662 Active Not Available [facility] 3 07:44:22 Chronic obstructive pulmonary disease 63439277 Active Not Available [facility] 3 07:44:22 Increased frequency of urination 705041457 Active 2022 Not Available [facility] 3 07:44:22 Incomplete emptying of urinary bladder 696156442 Active 2021 Not Available [facility] 3 07:44:22 Low back pain 363656336 Active Not Available [facility] 3 07:44:22 Knee pain Active Not Available [facility] 3 07:44:22 Dyslipidemia 156711283 Active 2020 Not Available [facility] 3 07:44:22 Peripheral arterial occlusive disease 950566439 Active Not Available [facility] 3 07:44:23 Influenza 4413985 Active Not Available [facility] 3 07:44:23 Neck pain 63532373 Active Not Available [facility] 3 07:44:23 Pain in limb 90929117 Active Not Available [facility] 3 07:44:23 Skin lesion 27170382 Active 2021 Not Available [facility] 3 07:44:23 Anxiety 08556746 Active 2022 Not Available [facility] 3 07:44:23 Bronchitis 05458237 Active 2022 SATHISH Tinajero, [place] [facility] 3 16:45:46 Problem Notes None recorded. Procedures Surgical History Date Name Laterality Status Provider Name and Address Organization Details Recorded Time 08/14/19 19 Colonoscopy completed Not Available [facility] 06/14/19 23 05:14:05 06/14/19 16 Stent Placement completed Not Available [facility] 04/2022 05:14:05 Knee Surgery completed Not Available [facility] 06/13/2022 05:14:05 Imaging Results Imaging Date Name Status LastModified by Organiz ation Details LastModified Time 05/11/2022 US, bladder completed [id number] [facility] [place] [address] [facility], [address], [place], [address], 06/13/2022 05:27:26 10/22/2023 XR, cervical spine, 4 or 5 view completed [email or web address] [facility] (Imaging) [address] [place], [address], 10/27/2023 10:55:39 03/24/2024 LDCT, chest, for lung cancer screening completed [facility] (Imaging) [address] [place], [address], 05/21/2024 15:01:31 Procedure Notes None recorded. Medical Equipment None Reported. Allergies No known drug allergies Medications Name Sig Start Date Stop Date Status Note LastModified by Organization Details LastModified Time Singulair 10 mg tablet Take 1 tablet every day by oral route. 03/26 completed Not Available Not Available Not Available amoxicill in 500 mg capsule 06/19 completed Not Available Not Available Not Available doxycycli ne hyclate 100 mg capsule TAKE 1 CAPSULE BY MOUTH TWICE DAILY FOR 7 DAYS active Not Available Not Available No t Available atorvasta tin 20 mg tablet TAKE 1 TABLET BY MOUTH ONCE DAILY active Not Available Not Available No t Available nicotine 14 mg/24 hr daily transderm al patch 06/28 completed Not Available Not Available Not Available clindamyc in HCl 300 mg capsule 05/04 completed Not Available Not Available Not Available azithromy alisson 250 mg tablet TAKE 2 TABLETS BY MOUTH ON DAY 1 AND THEN TAKE 1 TABLET BY MOUTH ONCE A DAY ON DAY 2 THROUGH DAY 5 06/28 completed Not Available Not Available Not Available hydrocodo ne 5 mg-acetam inophen 325 mg tablet 03/27 completed Not Available Not Available Not Available lisinopri l 20 mg tablet Take 1 tablet by mouth once daily active Not Available Not Available No t Available prednison e 20 mg tablet Take 2 tablets every day by oral route for 7 days. 2022 active Not Available Not Available Not Avai lable clopidogr el 75 mg tablet TAKE 1 TABLET BY MOUTH ONCE DAILY active Not Available Not Available No t Available Tamiflu 75 mg capsule 03/26 completed Not Available Not Available Not Available amoxicill in 500 mg tablet Take 1 tablet 3 times a day by oral route. 06/19 completed Not Available Not Available Not Available tamsulosi n 0.4 mg capsule TAKE 1 CAPSULE BY MOUTH ONCE DAILY AT BEDTIME 03/27 completed hasnt seen urologis t in 1 year Not Available Not Available Not Available cephalexi n 500 mg capsule 03/29 completed Not Available Not Available Not Available lisinopri l 10 mg tablet TAKE ONE TABLET BY MOUTH ONCE DAILY active Not Available Not Available No t Available nicotine 21 mg/24 hr daily transderm al patch 06/28 completed Not Available Not Available Not Available albuterol sulfate HFA 90 mcg/actua tion aerosol inhaler INHALE 2 PUFFS BY MOUTH EVERY 4 HOURS NEEDED 2023 active Not Available Not Available Not Avai lable sertralin e 50 mg tablet Take 1 tablet by mouth once daily active Not Available Not Available No t Available doxycycli ne hyclate 100 mg tablet 10/25 completed Not Available Not Available Not Available amoxicill in 875 mg-potass ium clavulana te 125 mg tablet Take 1 tablet twice a day by oral route for 7 days. 06/28 completed Not Available Not Available Not Available nicotine 7 mg/24 hr daily transderm al patch 06/28 completed Not Available Not Available Not Available nicotine (polacril ex) 2 mg buccal lozenge 06/28 completed Not Available Not Available Not Available rosuvasta tin 20 mg tablet TAKE ONE TABLET BY MOUTH ONCE DAILY active Not Available Not Available No t Available multivita min 2019 active Not Available Not Available Not Avai lable Suprep Bowel Prep Kit 17.5 gram-3.13 gram-1.6 gram oral solution 03/02 completed Not Available Not Available Not Available Chantix Continuin g Month Box 1 mg tablet Take 1 tablet twice a day by oral route as directed . 03/02 completed Not Available Not Available Not Available Chantix Starting Month Box 0.5 mg (11)-1 mg (42) tablets in dose pack Take 1 startr pk by oral route as directed . active Not Available Not Available No t Available Fluarix Quad 6810-8878 (PF) 60 mcg (15 mcg x 4)/0.5 mL IM syringe 12/23 completed Not Available Not Available Not Available Fluarix Quad (PF) 60 mcg (15 mcg x 4)/0.5 mL IM syringe 07/04 completed Not Available Not Available Not Available Flucelvax Quad (PF) 60 mcg (15 mcg x 4)/0.5 mL IM syringe PHARMACI ST ADMINIST ERED IMMUNIZA TION ADMINIST ERED AT TIME OF DISPENSI NG 05/02 completed Not Available Not Available Not Available Vitals Date Recorded Body mass index (BMI) Body mass index (BMI) Body height Body height Oxygen saturation Oxygen saturation in Arterial blood by Pulse oximetry Heart rate Heart rate Body temperature Body temperature Body weight Body weight Systolic blood pressure Diastolic blood pressure Systolic blood pressure Diastolic blood pressure Provider Name and Address Organization Details Last Updated DateTime 3 23.6 kg/m2 23.7 kg/m2 182.88 cm 182.88 cm 97 % 97 % 77 /min 74 /min 98 [degF] 98.2 [degF] 49989.0 7 g 51677.6 6 g 122 mm[Hg] 76 mm[Hg] 180 mm[Hg] 105 mm[Hg] Not Available [facility] 3 05:16:28 Date Recorded Body height Body mass index (BMI) Body weight Body temperature Heart rate Systolic blood pressure Diastolic blood pressure Provider Name and Address Organization Details Last Updated DateTime 3 182.88 cm 24.1 kg/m2 65784.4 4 g 97.9 [degF] 80 /min 146 mm[Hg] 80 mm[Hg] SATHISH [employer] 3 10:27:27 Date Recorded Body height Body mass index (BMI) Body weight Body temperature Heart rate Systolic blood pressure Diastolic blood pressure Provider Name and Address Organization Details Last Updated DateTime 3 182.88 cm 23.5 kg/m2 40423.4 8 g 98.2 [degF] 62 /min 120 mm[Hg] 82 mm[Hg] SATHISH [employer] 3 11:32:31 Date Recorded Body height Body mass index (BMI) Body weight Body temperature Heart rate Systolic blood pressure Diastolic blood pressure Provider Name and Address Organization Details Last Updated DateTime 3 182.88 cm 24.3 kg/m2 24029.0 3 g 97.7 [degF] 63 /min 140 mm[Hg] 82 mm[Hg] SAHTISH [employer] 3 16:11:34 Social History Question Answer Notes LastModified by Organization Details LastModified Time Tobacco Smoking Status Current Every Day Smoker VIKAS Sanchez [employer] 03/27/2023 15:16:17 Do You Have An Advance Directive? No [id number] Information not available 06/13/2022 What Is Your Level Of Alcohol Consumption? None [id number] Information not available 06/13/2022 What Is Your Level Of Caffeine Consumption? Heavy MIGRATION.0301 [id number] Information not available 06/13/2022 How Much Tobacco Do You Chew? None MIGRATION.[id number] [id number] Information not available 06/13/2022 In The 14 Days Before Symptom Onset, Have You Had Close Contact With A Laboratory-conf irmed COVID-19 While That Case Was Ill? No [email or web address] Information not available 03/27/2023 In The 14 Days Before Symptom Onset, Have You Had Close Contact With A Person Who Is Under Investigation For COVID-19 While That Person Was Ill? No [email or web address] Information not available 03/27/2023 What Type Of Diet Are You Following? REGULAR MIGRATION.[id number] Information not available 06/13/2022 Which Illicit Or Recreational Drugs Have You Used? None [email or web address] Information not available 03/27/2023 Do You Or Have You Ever Used E-cigarettes Or Vape? Never Used Electronic Cigarettes [email or web address] Information not available 03/27/2023 What Is The Highest Grade Or Level Of School You Have Completed Or The Highest Degree You Have Received? 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 Yes Passed Information not available 03/27/2023 What Is The Fluoride Status Of Your Home? Unknown [email or web address] Information not available 03/27/2023 Are There Any Guns Present In Your Home? No [email or web address] Information not available 03/27/2023 Do You Use Insect Repellent Routinely? No [email or web address] Information not available 03/27/2023 Where Do You Live? SingleLevelHouse With Basement [email or web address] Information not available 03/27/2023 Do You Have A Medical Power Of Geology Instructor? No [email or web address] Information not available 03/27/2023 What Was The Date Of Your Most Recent Tobacco Screening? 03/27/2023 [email or web address] Information not available 03/27/2023 Do You Have Any Pets? Yes [email or web address] Information not available 03/27/2023 What Is Your Relationship Status? [id number].0301 [id number] Information not available 06/13/2022 Do You Use Your Seat Belt Or Car Seat Routinely? Yes [email or web address] Information not available 03/27/2023 Do You Have Smoke And Carbon Monoxide Detectors In Your Home? Yes [email or web address] Information not available 03/27/2023 At What Age Did You Start Smoking Tobacco? 12 [email or web address] Information not available 03/27/2023 Are You Passively Exposed To Smoke? No [email or web address] Information not available 03/27/2023 Do You Or Have You Ever Used Smokeless Tobacco? Never Used Smokeless Tobacco MIGRATION.030 [id number] Information not available 06/13/2022 Are There Any Smokers In Your House? No [email or web address] Information not available 03/27/2023 How Much Tobacco Do You Smoke? 1 PPD MIGRATION.030 [id number] Information not available 06/13/2022 What Types Of Sporting Activities Do You Participate In? None [email or web address] Information not available 03/27/2023 Do You Feel Stressed (tense, Restless, Nervous, Or Anxious, Or Unable To Sleep At Night)? [id number] [email or web address] Information not available 03/27/2023 Do You Use Any Illicit Or Recreational Drugs? No [email or web address] Information not available 03/27/2023 Do You Use Sunscreen Routinely? No [email or web address] Information not available 03/27/2023 Have You Recently Traveled Abroad? No [email or web address] Information not available 03/27/2023 Do You Have Any Dietary Restrictions? No [email or web address] Information not available 03/27/2023 Do You Or Have You Ever Used Any Other Forms Of Tobacco Or Nicotine? No [email or web address] Information not available 03/27/2023 Sex: Male Functional Status Question Answer Note LastModified by Organizat ion Details LastModified Time What is your exercise level? Heavy [id number] Information not available 06/13/2022 Mental Status None recorded. Family History Relationship Description Onset Age of this Age Resolved Age Notes LastModified by Organization Details LastModified Time Mother Aneurysm [email or web address] Not availa ble 03/27/2023 15:16:14 Mother Hypertensive disorder [id number] Not available 06/13/2022 05:14:07 Father Heart disease [id number] Not available 06/13/2022 05:14:07 Medical History Condition Response NERVE DISEASE N BLINDNESS N RHEUMATIC FEVER N KIDNEY STONES N BLADDER PROBLEMS N MRSA N OTHER # 1 Y POLIO N LUNG DISEASE/DISORDER N RADIATION / CHEMOTHERAPY N COPD Y Other # 2 N BLOOD DISEASES N EAR OR HEARING PROBLEMS N MUMPS N BOWEL PROBLEMS N DEPRESSION (INCLUDING POST ) N STROKE/TIA N ULCERS N BENIGN PROSTATIC HYPERPLASIA N MEASLES N MYOCARDIAL INFARCTION N OBESITY N GERD/NAUSEA N ANEURYSM N URINARY/BLADDER/KIDNEY PROBLEMS N CORONARY ARTERY DISEASE (CAD) N ADDICTION CONCERNS N Impotence N ENDOMETRIOSIS N USE OF BLOOD THINNERS N SKIN PROBLEMS N GASTROINTESTINAL DISORDER N PERIPHERAL VASCULAR DISEASE N MUSCLE,JOINT OR BONE PROBLEMS N GASTROINTESTINAL BLEEDING N BLOOD CLOTS N ASTHMA N CATARACTS N ERECTILE DYSFUNCTION N VARICOSITIES N GI PROBLEMS N Low Testosterone N INFERTILITY N AIDS/HIV N CHEMOTHERAPY / RADIATION N LIVER DISEASE N MALE HYPOGONADISM N HYPERTENSION Y Deficiency N TOURETTE'S N ANXIETY DISORDER N BLOOD TRANSFUSION N ANEMIA/BLOOD DISORDER N CHRONIC EAR INFECTIONS N BRONCHITIS N TUBERCULOSIS N GLAUCOMA N FOOT PROBLEM N DIVERTICULITIS N SLEEP APNEA N CHICKENPOX N INFECTIOUS DISEASE N PROSTATE N HEART ARRHYTHMIA N INSOMNIA N HIGH CHOLESTEROL / HYPERLIPIDEMIA Y EYE PROBLEMS N HYPERTHYROIDISM N EDEMA N CHRONIC PAIN SYNDROME N HYPOTHYROIDISM N CONSTIPATION N CAROTID BLOCKAGE N BACK / NECK PROBLEMS N HAVE YOU BEEN HOSPITALIZED OR SEEN IN THE MEDICAL CENTER IN THE PAST YEAR ? N ATHEROSCLEROSIS N BREAST PROBLEMS N DIALYSIS N ECZEMA N OSTEOPOROSIS N ARTHRITIS N APPENDICITIS N DIABETES, TYPE N BAD TEETH N ENT N HEARTBURN / REFLUX N AUTISM SPECTRUM DISORDER (ASD) N HEPATITIS / LIVER DISEASE N GOUT N SLEEP DISORDER N ALZHEIMER'S DISEASE N Brain Problems N DEMENTIA N HERPES N SEIZURES/EPILEPSY N HEADACHES/MIGRAINES N VASCULAR DISEASE N PACEMAKER N Blood Disorder N DIZZINESS N HEART DISEASE/HEART PROBLEMS N KIDNEY DISEASE N MULTIPLE SCLEROSIS N CANCER: SPECIFY N CARDIAC ARRHYTHMIA N ATRIAL FIBRILLATION N Gall Stones N PULMONARY EMBOLISM N AUTOIMMUNE DISEASE N Immunizations Vaccine Type Date Status Note Provider Nam e and Address Organization Details Recorded Time RSV, recombinant, protein subunit RSVpreF, adjuvant reconstituted, 0.5 mL, PF 3 completed VIKAS Sanchez, [place] - [facility] [employer] 03/27/2023 15:16:18 influenza, unspecified formulation 3 completed Not Available [facility] 03/22/2023 07:44:23 Influenza, split virus, quadrivalent, preservative 0 completed Not Available [facility] 03/22/2023 07:44:23 Influenza, split virus, quadrivalent, preservative 8 completed Not Available [facility] 03/22/2023 07:44:23 COVID-19, mRNA, LNP-S, PF, 30 mcg/0.3 mL dose 2 completed Not Available [facility] 03/22/2023 07:44:23 Influenza, split virus, trivalent, preservative 2 completed Not Available [facility] 03/22/2023 07:44:23 COVID-19 vaccine, vector-nr, rS-ChAdOx1, PF, 0.5 mL 1 completed Not Available [facility] 03/22/2023 07:44:23 COVID-19 vaccine, vector-nr, rS-ChAdOx1, PF, 0.5 mL 1 completed Not Available [facility] 03/22/2023 07:44:23 Influenza, split virus, quadrivalent, PF 1 completed Not Available [facility] 03/22/2023 07:44:23 Past Encounters Encounter ID Performer Location Encounter Start Date Encounter Closed Date Diagnosis/Indication Diagnosis SNOMED-CT Code Diagnosis ICD10 Code Diagnosis Note [id number] [facility] [address] [place] [address] [address] [address] 08/29/2020 00:00:00 08/29/2020 22:37:05 [id number] [facility] [address] [place] [address] Ave[address] [address] 09/14/2020 00:00:00 09/24/2020 16:43:55 [id number] [facility] [address] [place] [address] [place] [address] 1 01/20/2021 00:00:00 02/19/2021 21:57:08 [id number] [facility] [address] [place] [address] [place] [address] 1 03/27/2021 00:00:00 04/15/2021 22:46:01 [id number] [facility] [address] [place] [address] Ave[address] [address] 07/07/2021 00:00:00 07/09/2021 12:02:52 [id number] [facility] [address] [place], [place] [address]e., [address] [address] 10/25/2021 00:00:00 11/06/2021 22:28:57 [id number] [facility] [address] [place], [place] [address]e., [address] [address] 11/24/2021 00:00:00 12/03/2021 12:17:26 [id number] [facility] [address] [address] 04/05/2022 00:00:00 04/05/2022 22:55:17 [id number] [facility] [address], [facility] [address] [place] [address] 05/11/2022 00:00:00 05/11/2022 14:46:17 [id number] Keenan London MD [facility] [address] [address] 08/08/2022 10:12:57 08/08/2022 11:07:45 Benign essential hypertension 2045141 I10 Anxiety 91094279 F41.9 Dyslipidemia 830949231 E 78.5 Peripheral arterial occlusive disease 506987798 I73.9 [id number] Keenan London MD [facility] [address] [place] [address] [place] [address] 10/04/2022 11:15:54 10/04/2022 11:59:16 Benign essential hypertension 1043876 I10 Dyslipidemia 450310279 E 78.5 Anxiety 51198566 F41.9 Chronic ob structive pulmonary disease 56052007 J44.9 Peripheral arterial occlusive disease 665186090 I73.9 Tobacco user 735487659 Z 72.0 [id number] Keenan London MD [facility] [place] [address] [facility] [place] [address] 03/27/2023 15:14:36 03/27/2023 16:45:30 Bronchitis 86093991 J40 Dyslipidemia 596415650 E 78.5 Benign ess ential hypertension 1165120 I10 Chronic ob structive pulmonary disease 46206114 J44.9 Peripheral arterial occlusive disease 547867522 I73.9 Health Concerns Section Related Observation LastModified by Organization Detai ls LastModified Time None Recorded Concern Status LastModified by Organization Details LastModified Time None Recorded Advance Directives Directive N: Payers Encounter Date Sequence Insurance Name Policy Number Policy Auguste Covered Member ID Auguste Member ID Guarantor Name 08/08/2022 2 [place] 111 Vinny Kim [id number] Vinny Kim 10/04/2022 2 [place] 111 Vinny Kim [id number] Vinny Kim 03/27/2023 2 [place] 111 Vinny Kim [id number] Vinny Kim 03/27/2023 1 [place] Vinny Kim [id number] Vinny Kim Notes Date Note Type Note Provider Name and Address Organization Details Recorded Time 3 text/htm l Hyperlipidemia could do better with dietAnxiety high no SI or HI some depression symptoms since has passedPeripheral arterial occlusive disease no claudication but continues to smoke Keenan London MD [address] [facility], [address], [place], [address], [employer] 08/19/2022 14:41:26 3 text/htm l smoking continuesAnxiety stableDyslipidemia diet pretty goodCOPD no shortness of no coughPeripheral arterial disease no claudicationHypertension no headache no dizziness Keenan London MD [address] [facility], [place], [address], [employer] 10/16/2022 22:08:30 3 text/htm l COPD continues to smoke denies got a couple of days of yellow sputum and some wheezing. Peripheral arterial occlusive disease no claudication. Hypertension he has not had any headache or chest pain. Keenan London MD [address] [place] [address], [place], [address], [place] - [facility] 04/15/2023 21:24:53
--- OUTSIDE RECORDS SUMMARY | 2024-05-28 00:55 | XMS_ITS | Data Portability ---
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 Also understands that it can accelerate vascular disease in his legs leading to amputation sepsis chronic disability and he will follow-up with me in 4 months time. Obtain records from previous clinic Not available 06/27/2023 22:26:35 10/22/2023 10/22/2023 ENT blood work tobacco cessation discussed in detail. Prevnar 20 follow up 4 months [email or web address] Not available 10/22/2023 23:22:16 02/14/2024 02/14/2024 his blood pressu re is controlled he was warned of the ill effects of tobacco which included but not limited to increase tumors of the aerodigestive tract and other disease processes all of which can lead to sudden or chronic medical illness. Multiple mechanisms and pharmacological and nonpharmacological strategies for smoking cessation discussed and he refused all of them was told that he needs stays up-to-date on screenings and immunizations. And he did get his flu COVID and pneumococcal 20 those are up-to-date see me in 3-4 months [email or web address] Not available 02/15/2024 17:21:02 02/21/2024 02/21/2024 assessments discussed immunizations and screenings ordered were appropriate and patient agreeable. We will keep regular follow up Not available 02/21/2024 21:44:59 Plan of Treatment Reminders Order Date Submit Date Provider Last Modified By Organization Details Last Modified Time Details Appointments ANY 15 2024 10:00A Dariela London MD Not available Not available Not available Lab PSA, total, serum or plasma 2023 024 [facility], [address], [place], [address], 10/23/2023 13:12:17 CBC w/ auto diff 2023 024 [facility], [address], [address], [place], [address], 10/23/2023 13:12:16 lipid panel, serum 2023 024 [facility], [address], [address], [place], [address], 10/23/2023 13:12:15 CMP, serum or plasma 2023 024 [facility], [address], [address], [place], [address], 10/23/2023 13:12:16 Referral ENT surgery referral 2023 024 prachi Manuel, [address], [place], [address], 05/15/2024 15:07:16 Procedures colonosco py screening (PROC) 2023 024 [facility], [address], [id number], [place], [address], 05/22/2024 10:28:41 Surgeries None recorded. Imaging XR, cervical spine 2023 024 [facility]), [address] [place], [address], 10/22/2023 16:31:51 LDCT, chest, for lung cancer screening 2023 [facility] ([facility]), [address] [place], [address], 03/24/2024 11:45:57 Medication Orders None recorded. Patient TargetsNo targets recorded. Patient Instructions Encounter Date Encounter Id Patient Instructions Last Modified By Organization Details Last Modified Time 02/14/2024 [id number] A healthy lifestyle: care instructions [email or web address] Not available 02/14/2024 11:59:03 02/21/2024 [id number] Quitting Tobacco : Care Instructions [email or web address] Not available 02/21/2024 14:09:48 Medicare Wellnes s Preventive Checklist [email or web address] Not available 02/21/2024 14:09:48 Reason for Referral ENT Surgery Referral for Les ion of right external ear canal Referring Physician: Adri London, Internal Medicine, Encounter Date: 10/22/2023 Results Created Date Observation Date Name Description Value Unit Range Abnormal Flag Note LastModifiedBy Organization Detail LastModifiedTime 10/22/1910/23/2023 LIPID PANEL cholesterol, total 153 mg/dL 100-19 9 Not Available [facility] ([facility]) [address] [facility], [place], [address], 10/23/2023 13:12:15 10/22/1910/23/2023 LIPID PANEL triglyceride s 266 mg/dL 0-149 above high normal Not Available [facility] ([facility]) [address] [facility], [place], [address], 10/23/2023 13:12:15 10/22/19 24 10/23/2023 LIPID PANEL HDL cholesterol 44 mg/dL >39 Not Available [facility]) [address] [facility], [place], [address], 10/23/2023 13:12:15 10/22/19 24 10/23/2023 LIPID PANEL VLDL cholesterol polo 43 mg/dL 5-40 above high normal Not Available [facility] ([facility]) [address] [place], [address], 10/23/2023 13:12:15 10/22/19 24 10/23/2023 LIPID PANEL LDL chol calc ([facility]) 66 mg/dL 0-99 Not Available [facility]) [address] [place], [address], 10/23/2023 13:12:15 10/22/19 24 10/23/2023 COMP. METAB OLIC PANEL (14) glucose 84 mg/dL 70-99 Not Available [facility] ([facility]) [address] [place], [address], 10/23/2023 13:12:16 10/22/19 24 10/23/2023 COMP. METAB OLIC PANEL (14) BUN 15 mg/dL 8-27 Not Available [facility] ([facility]) [address] [place], [address], 10/23/2023 13:12:16 10/22/19 24 10/23/2023 COMP. METAB OLIC PANEL (14) creatinine 1.05 mg/dL 0.76-1 .27 Not Available [facility] ([facility]) [address] [place], [address], 10/23/2023 13:12:16 10/22/19 24 10/23/2023 COMP. METAB OLIC PANEL (14) eGFR 79 mL/mi n/1.7 3 >59 Not Available [facility] ([facility]) [address] [place], [address], 10/23/2023 13:12:16 10/22/19 24 10/23/2023 COMP. METAB OLIC PANEL (14) BUN/creatini ne ratio 14 - Not Available [facility] ([facility]) [address] [place], [address], 10/23/2023 13:12:16 10/22/19 24 10/23/2023 COMP. METAB OLIC PANEL (14) sodium 141 mmol/ L 134-14 4 Not Available [facility] ([facility]) [address] [place], [address], 10/23/2023 13:12:16 10/22/19 24 10/23/2023 COMP. METAB OLIC PANEL (14) potassium 4.6 mmol/ L 3.5-5. 2 Not Available [facility] ([facility]) [address] [place], [address], 10/23/2023 13:12:16 10/22/19 24 10/23/2023 COMP. METAB OLIC PANEL (14) chloride 104 mmol/ L 96-106 Not Available [facility] ([facility]) [address] [place], [address], 10/23/2023 13:12:16 10/22/19 24 10/23/2023 COMP. METAB OLIC PANEL (14) carbon dioxide, total 24 mmol/ L 20-29 Not Available [facility] ([facility]) [address] [place], [address], 10/23/2023 13:12:16 10/22/19 24 10/23/2023 COMP. METAB OLIC PANEL (14) calcium 9.6 mg/dL 8.6-10 .2 Not Available [facility] ([facility]) [address] [facility] [place], [address], 10/23/2023 13:12:16 10/22/19 24 10/23/2023 COMP. METAB OLIC PANEL (14) protein, total 6.6 g/dL 6.0-8. 5 Not Available [facility] ([facility]) [address] [facility] [place], [address], 10/23/2023 13:12:16 10/22/19 24 10/23/2023 COMP. METAB OLIC PANEL (14) albumin 4.3 g/dL 3.9-4. 9 Not Available [facility] ([facility]) [address] [facility], [place], [address], 10/23/2023 13:12:16 10/22/19 24 10/23/2023 COMP. METAB OLIC PANEL (14) globulin, total 2.3 g/dL 1.5-4. 5 Not Available [facility] ([facility]) [address] [facility], [place], [address], 10/23/2023 13:12:16 10/22/19 24 10/23/2023 COMP. METAB OLIC PANEL (14) bilirubin, total 0.2 mg/dL 0.0-1. 2 Not Available [facility] ([facility]) [address] [facility], [place], [address], 10/23/2023 13:12:16 10/22/19 24 10/23/2023 COMP. METAB OLIC PANEL (14) alkaline phosphatase 112 IU/L 44-121 Not Available [facility]) [address] [facility], [place], [address], 10/23/2023 13:12:16 10/22/19 24 10/23/2023 COMP. METAB OLIC PANEL (14) AST (SGOT) 20 IU/L 0-40 Not Available [facility] ([facility]) [address] [facility], [place], [address], 10/23/2023 13:12:16 10/22/19 24 10/23/2023 COMP. METAB OLIC PANEL (14) ALT (SGPT) 17 IU/L 0-44 Not Available [facility] ([facility]) [address] [facility], [place], [address], 10/23/2023 13:12:16 10/22/19 24 10/23/2023 CBC WITH DIFFE RENTI AL/PL ATELE T WBC 8.3 x10e3 /uL 3.4-10 .8 Not Available [facility] ([facility]) [address] [facility], [place], [address], 10/23/2023 13:12:16 10/22/19 24 10/23/2023 CBC WITH DIFFE RENTI AL/PL ATELE T RBC 4.83 x10e6 /uL 4.14-5 .80 Not Available [facility] ([facility]) [address] [facility], [place], [address], 10/23/2023 13:12:16 10/22/19 24 10/23/2023 CBC WITH DIFFE RENTI AL/PL ATELE T hemoglobin 15.5 g/dL 13.0-1 7.7 Not Available [facility] ([facility]) [address] [facility], [place], [address], 10/23/2023 13:12:16 10/22/19 24 10/23/2023 CBC WITH DIFFE RENTI AL/PL ATELE T hematocrit 45.8 % 37.5-5 1.0 Not Available [facility] ([facility]) [address] [facility], [place], [address], 10/23/2023 13:12:16 10/22/19 24 10/23/2023 CBC WITH DIFFE RENTI AL/PL ATELE T MCV 95 fL 79-97 Not Available [facility] ([facility]) [address] [place], [address], 10/23/2023 13:12:16 10/22/19 24 10/23/2023 CBC WITH DIFFE RENTI AL/PL ATELE T MCH 32.1 pg 26.6-3 3.0 Not Available [facility] ([facility]) [address] [place], [address], 10/23/2023 13:12:16 10/22/19 24 10/23/2023 CBC WITH DIFFE RENTI AL/PL ATELE T MCHC 33.8 g/dL 31.5-3 5.7 Not Available [facility] ([facility]) [address] [facility], [place], [address], 10/23/2023 13:12:16 10/22/19 24 10/23/2023 CBC WITH DIFFE RENTI AL/PL ATELE T RDW 12.3 % 11.6-1 5.4 Not Available [facility] ([facility]) [address] [facility], [place], [address], 10/23/2023 13:12:16 10/22/19 24 10/23/2023 CBC WITH DIFFE RENTI AL/PL ATELE T platelets 263 x10e3 /uL 150-45 0 Not Available [facility] ([facility]) [address] [facility], [place], [address], 10/23/2023 13:12:16 10/22/19 24 10/23/2023 CBC WITH DIFFE RENTI AL/PL ATELE T neutrophils 55 % notest ab. Not Available [facility] ([facility]) [address] [facility], [place], [address], 10/23/2023 13:12:16 10/22/19 24 10/23/2023 CBC WITH DIFFE RENTI AL/PL ATELE T lymphs 31 % notest ab. Not Available [facility] ([facility]) [address] [facility], [place], [address], 10/23/2023 13:12:16 10/22/19 24 10/23/2023 CBC WITH DIFFE RENTI AL/PL ATELE T monocytes 10 % notest ab. Not Available [facility] ([facility]) [address] [facility], [place], [address], 10/23/2023 13:12:16 10/22/19 24 10/23/2023 CBC WITH DIFFE RENTI AL/PL ATELE T eos 3 % notest ab. Not Available [facility] ([facility]) [address] [facility], [place], [address], 10/23/2023 13:12:16 10/22/19 24 10/23/2023 CBC WITH DIFFE RENTI AL/PL ATELE T basos 1 % notest ab. Not Available [facility] ([facility]) [address] [facility], [place], [address], 10/23/2023 13:12:16 10/22/19 24 10/23/2023 CBC WITH DIFFE RENTI AL/PL ATELE T neutrophils (absolute) 4.6 x10e3 /uL 1.4-7. 0 Not Available [facility] ([facility]) [address] [facility], [place], [address], 10/23/2023 13:12:16 10/22/19 24 10/23/2023 CBC WITH DIFFE RENTI AL/PL ATELE T lymphs (absolute) 2.6 x10e3 /uL 0.7-3. 1 Not Available [facility] ([facility]) [address] [facility], [place], [address], 10/23/2023 13:12:16 10/22/19 24 10/23/2023 CBC WITH DIFFE RENTI AL/PL ATELE T monocytes(ab solute) 0.8 x10e3 /uL 0.1-0. 9 Not Available [facility] ([facility]) [address] [facility], [place], [address], 10/23/2023 13:12:16 10/22/19 24 10/23/2023 CBC WITH DIFFE RENTI AL/PL ATELE T eos (absolute) 0.2 x10e3 /uL 0.0-0. 4 Not Available [facility] ([facility]) [address] [facility], [place], [address], 10/23/2023 13:12:16 10/22/19 24 10/23/2023 CBC WITH DIFFE RENTI AL/PL ATELE T baso (absolute) 0.1 x10e3 /uL 0.0-0. 2 Not Available [facility] ([facility]) [address] [facility], [place], [address], 10/23/2023 13:12:16 10/22/19 24 10/23/2023 CBC WITH DIFFE RENTI AL/PL ATELE T immature granulocytes 0 % notest ab. Not Available [facility] ([facility]) [address] [facility], [place], [address], 10/23/2023 13:12:16 10/22/19 24 10/23/2023 CBC WITH DIFFE RENTI AL/PL ATELE T immature grans (abs) 0.0 x10e3 /uL 0.0-0. 1 Not Available [facility] ([facility]) [address] [facility], [place], [address], 10/23/2023 13:12:16 10/22/19 24 10/23/2023 PROST ATE-S PECIF IC AG prostate specific Ag 14.6 NG/mL 0.0-4. 0 above high normal Murphy ECLIA metho dolog y. Accor ding to the Ameri can Urolo gical Assoc iatio n, Serum PSA shoul d decre ase and remai n at undet ectab le level s after radic al prost atect vignesh. The AUA defin es bioch emica l recur rence as an initi al PSA value 0.2 ng/mL or great er follo wed by a subse quent confi rmato ry PSA value 0.2 ng/mL or great er. Value s obtai corky with diffe rent assay metho ds or kits canno t be used inter martinez eably . Resul ts canno t be inter prete d as absol [place] evide nce of the prese nce or absen ce of [facility] becki disea se. Not Available [facility] ([facility]) [address] [facility], [place], [address], 10/23/2023 13:12:17 10/22/19 24 10/22/2023 XR, cervi polo spine No observ ation record ed. [facility] [address] [place], [address], 10/28/2023 10:50:42 03/24/20 24 03/24/2024 LDCT, chest , for lung cance r scree bob No observ ation record ed. [facility] [address] [facility], [place], [address], 04/07/2024 13:59:10 Result Notes None recorded. Problems Name Problem SNOMED Code Status Onset Date Resolution Date Notes Provider Name and Address Organization Details Recorded Time Hyperlipidemia 50288788 Active 2023 Adri London MD Attn: Mary denise,[address] [facility], [place], [address], [place] - [facility] 4 22:24:26 Chronic obstructive pulmonary disease 03831094 Active 2023 Adri London MD Attn: Mary denise,[address] [facility], [place], [address], [place] [facility] 4 22:24:27 Peripheral arterial occlusive disease 208565895 Active 2023 Adri London MD Attn: Mary denise,[address] [facility], [place], [address], [place] - [facility] 4 22:24:28 Anxiety 34013910 Active 2023 Adri London MD Attn: Mary denise,[address] [facility], [place], [address], [place] - [facility] 4 22:24:30 Essential hypertension 53421948 Active 2023 Adri London MD Attn: Mary denise,[address] [facility], [place], [address], [place] - [facility] 4 22:24:43 Tobacco dependence syndrome 65758792 Active 2023 Adri London MD Attn: Mary denise,[address] [facility], [place], [address], [facility] - [facility] 4 22:24:44 Screening for malignant neoplasm of prostate Active 2023 Rasta Schmidt MA null, [place] - [facility] 4 15:05:26 Neck pain 95801939 Active 2023 Rasta Schmidt MA null, [facility] 4 15:05:27 Problem Notes None recorded. Procedures Surgical History Date Name Laterality Status Provider Name and Address Organization Details Recorded Time Angioplasty With Stent completed Chloe Jeffers MA [place] - [place] 06/27/2023 15:47:14 Imaging Results Imaging Date Name Status LastModified by [facility] Details LastModified Time 10/22/2023 XR, cervical spine completed [facility] [address] [place], [address], 10/28/2023 10:50:42 03/24/2024 LDCT, chest, for lung cancer screening completed [facility] [address] [place], [address], 04/07/2024 13:59:10 Procedure Notes None recorded. Medical Equipment None Reported. Allergies No known drug allergies Medications Name Sig Start Date Stop Date Status Note LastModified by Organization Details LastModified Time doxycycline hyclate 100 mg capsule TAKE 1 CAPSULE BY MOUTH TWICE DAILY FOR 7 DAYS 10/21 completed Not Available Not Available Not Available atorvastati n 20 mg tablet Take 1 tablet by mouth once daily 2023 active Not Available Not Available Not Avai lable lisinopril 20 mg tablet take 1 tablet by mouth daily 2023 active Not Available Not Available Not Avai lable prednisone 20 mg tablet TAKE 2 TABLETS BY MOUTH ONCE DAILY FOR 7 DAYS 10/21 completed Not Available Not Available Not Available clopidogrel 75 mg tablet Take 1 tablet by mouth once daily 2023 active Not Available Not Available Not Avai lable tamsulosin 0.4 mg capsule TAKE 1 CAPSULE BY MOUTH ONCE DAILY AT BEDTIME 10/21 completed Not Available Not Available Not Available albuterol sulfate HFA 90 mcg/actuati on aerosol inhaler inhale 2 puffs every 4hrs by inhalatio n route 02/13 completed Not Available Not Available Not Available sertraline 50 mg tablet Take 1 tablet by mouth once daily 2023 active Not Available Not Available Not Avai lable Centrum Silver active Not Available Not Available Not Available ProAir RespiClick 90 mcg/actuati on breath activated INHALE 2 PUFFS BY MOUTH EVERY 4 HOURS 2024 active Not Available Not Available Not Avai lable albuterol sulf 90 mcg/actuati on breath activated powder inhaler,sen sor Inhale 2 puff(s) every 4 hours by inhalatio n route. 02/13 completed Not Available Not Available Not Available Vitals Date Recorded Body weight Body mass index (BMI) Body height Oxygen saturation Oxygen saturation in Arterial blood by Pulse oximetry Heart rate Body temperature Respiratory rate Systolic blood pressure Diastolic blood pressure Provider Name and Address Organization Details Last Updated DateTime 4 49252.2 6 g 24.5 kg/m2 180.34 cm 96 % 96 % 72 /min 98 [degF] 18 /min 130 mm[Hg] 90 mm[Hg] Chloe Jeffers [place] - [facility] 4 15:49:54 Date Recorded Body height Body mass index (BMI) Body weight Heart rate Oxygen saturation Oxygen saturation in Arterial blood by Pulse oximetry Systolic blood pressure Diastolic blood pressure Systolic blood pressure Diastolic blood pressure Provider Name and Address Organization Details Last Updated DateTime 4 180.34 cm 25.2 kg/m2 94337.7 8 g 66 /min 96 % 96 % 152 mm[Hg] 82 mm[Hg] 140 mm[Hg] 82 mm[Hg] Dima Browning [place] - [facility] 4 15:14:36 Date Recorded Body height Body mass index (BMI) Body weight Heart rate Oxygen saturation Oxygen saturation in Arterial blood by Pulse oximetry Systolic blood pressure Diastolic blood pressure Provider Name and Address Organization Details Last Updated DateTime 4 180.34 cm 25.3 kg/m2 55905.3 7 g 68 /min 98 % 98 % 138 mm[Hg] 70 mm[Hg] Caroline Andrews [place] - [facility] 4 11:11:14 Date Recorded Body height Body mass index (BMI) Body weight Heart rate Oxygen saturation Oxygen saturation in Arterial blood by Pulse oximetry Systolic blood pressure Diastolic blood pressure Provider Name and Address Organization Details Last Updated DateTime 180.34 cm 25.4 kg/m2 41085.8 1 g 64 /min 97 % 97 % 136 mm[Hg] 64 mm[Hg] Eliza Nguyen MA [facility] 11:45:37 Date Recorded Pain severity - 0-10 verbal numeric rating [Score] - Reported Provider Name and Address Organization Details Last Updated DateTime 02/21/2024 0 Alexus Rod [facility] 02/21/2024 11:47:28 Social History Question Answer Notes LastModified by Organizat ion Details LastModified Time Tobacco Smoking Status Current Every Day Smoker Chloe Jeffers MA [facility], [facility] 06/27/2023 15:46:54 Do You Have An Advance Directive? No Information not available 02/14/2024 What Is Your Level Of Alcohol Consumption? None Information not available 06/27/2023 Are You Blind Or Do You Have Difficulty Seeing? No Information not available 02/14/2024 What Is Your Level Of Caffeine Consumption? Moderate Information not available 02/21/2024 In The 14 Days Before Symptom Onset, Have You Had Close Contact With A Laboratory-confir med COVID-19 While That Case Was Ill? No Information not available 02/14/2024 In The 14 Days Before Symptom Onset, Have You Had Close Contact With A Person Who Is Under Investigation For COVID-19 While That Person Was Ill? No Information not available 02/14/2024 Have You Been To An Area Known To Be High Risk For COVID-19? No Information not available 02/14/2024 Are You Currently Employed? Yes Information not available 02/21/2024 Are You Deaf Or Do You Have Serious Difficulty Hearing? No Information not available 02/14/2024 What Type Of Diet Are You Following? REGULAR Information not available 02/14/2024 What Is The Highest Grade Or Level Of School You Have Completed Or The Highest Degree You Have Received? 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 No Information not available 02/21/2024 In The Past 7 Days, How Many Days Did You Exercise? 0 No Exercise Regime But Patient Stays Active Information not available 02/21/2024 In The Past 7 Days, How Much Pain Have You Cocoa? None Information not available 02/21/2024 In General, Would You Say You Health Is: Good Information not available 02/21/2024 How Would You Describe The Condition Of Your Mouth And Teeth- Including False Teeth Or Dentures? Good Information not available 02/21/2024 Each Night, How Many Hours Of Sleep Do You Get? 8 Information no t available 02/21/2024 Has Anyone Ever Told You That You Snore? Yes Information not available 02/21/2024 In The Past 7 Days, How Often Have You Cocoa Sleepy In The Daytime? Never Information not available 02/21/2024 # Alcohol Drinks Per Week 0 Information not available 02/21/2024 What Was The Date Of Your Most Recent Tobacco Screening? 02/21/2024 Information not available 02/21/2024 What Is Your Current Pack Years? 30ormorepack years Information not available 02/21/2024 What Is Your Relationship Status? Information not available 02/21/2024 Do You Use Your Seat Belt Or Car Seat Routinely? Yes Information not available 02/14/2024 Do You Have Smoke And Carbon Monoxide Detectors In Your Home? Yes Information not available 02/14/2024 At What Age Did You Start Smoking Tobacco? 14 Information not available 02/21/2024 How Much Tobacco Do You Smoke? 1 PPD Information not available 06/27/2023 Do You Feel Stressed (tense, Restless, Nervous, Or Anxious, Or Unable To Sleep At Night)? [id number] Information not available 02/21/2024 Do You Use Any Illicit Or Recreational Drugs? No Information not available 06/27/2023 Do You Use Sunscreen Routinely? No Information not available 02/21/2024 Has Tobacco Cessation Counseling Been Provided? Yes Information not available 06/27/2023 On What Date Was Tobacco Cessation Counseling Provided? 02/21/2024 Information not available 02/21/2024 How Many Years Have You Smoked Tobacco? 50 Information not available 06/27/2023 Do You Or Have You Ever Used Any Other Forms Of Tobacco Or Nicotine? No Information not available 02/21/2024 Sex: Male Functional Status Question Answer Note LastModified by Organizat ion Details LastModified Time Are you able to care for yourself? Yes Information not available 02/14/2024 What is your exercise level? Moderate active lifestyle Information not available 02/21/2024 Mental Status None recorded. Family History Relationship Description Onset Age of this Age Resolved Age Notes LastModified by Organization Details LastModified Time Mother Malignant tumor of breast [email or web address] Not available 2023 15:46:30 Medical History Condition Response Coronary Artery Disease N Other N Atrial Fibrillation N High Blood Pressure Y Thyroid Problems N Kidney or Bladder Problems N Depression Y COPD Y Blood Clots Y GI Problems N Have you had a mammogram in the last yea r? N Skin Problems N Anemia N Heart Attack ([place]) N Diabetes N Anxiety Disorder Y Muscle, Joint, or Bone Problems Y Seizures/Epilepsy N Have you had a colonoscopy in the last 1 0 years? N Acid Reflux (GERD) N Cancer Y Stroke N Allergies N Asthma N Have you had a PSA blood test in the las t year? Y High Cholesterol Y Hepatitis N Liver Disease N Headaches N Osteoporosis N Heart Failure N Immunizations Vaccine Type Date Status Note Provider Nam e and Address Organization Details Recorded Time Influenza, MDCK, quadrivalent, PF 0 completed Chloe Jeffers [place], [place] [facility] 06/27/2023 15:48:25 COVID-19 vaccine, vector-nr, rS-Ad26, PF, 0.5 mL 1 completed Chloe Jeff[place], [place] [facility] 06/27/2023 15:48:25 COVID-19 vaccine, vector-nr, rS-Ad26, PF, 0.5 mL 1 completed Chloe Jeff[place] [facility] 06/27/2023 15:48:25 COVID-19, mRNA, LNP-S, bivalent, PF, 30 mcg/0.3 mL dose 2 completed RADHA [place] [facility] 06/27/2023 15:48:25 RSV, recombinant, protein subunit RSVpreF, adjuvant reconstituted, 0.5 mL, PF 3 completed RAD[place] [facility] 06/27/2023 15:48:25 Influenza, split virus, quadrivalent, PF 2 completed RAD[place] [facility] 06/27/2023 15:48:25 Influenza, split virus, quadrivalent, PF 3 completed RAD[place] [facility] 06/27/2023 15:48:25 Influenza, split virus, quadrivalent, PF 1 completed RAD[place] [facility] 06/27/2023 15:48:25 Influenza, split virus, quadrivalent, PF 8 completed RAD[place] [facility] 06/27/2023 15:48:25 Influenza, split virus, quadrivalent, PF 7 completed Chloe Jeff[place] [facility] 06/27/2023 15:48:25 COVID-19, mRNA, LNP-S, PF, tashi-sucrose, 30 mcg/0.3 mL 4 completed RADHA [place] [facility] 02/14/2024 12:08:44 Influenza, high-dose, trivalent, PF 4 completed RADHA [place] [facility] 02/14/2024 12:08:44 Pneumococcal conjugate PCV20, polysaccharide HPF493 conjugate, adjuvant, PF 4 completed Adri London MD Attn: Accounting[address] [place], [address], [place] [facility] 10/22/2023 23:20:41 Past Encounters Encounter ID Performer Location Encounter Start Date Encounter Closed Date Diagnosis/Indication Diagnosis SNOMED-CT Code Diagnosis ICD10 Code Diagnosis Note [id number] MD Harvey Waldron (Adult Med) [address] [place] [address] [id number] 06/27/2023 15:14:21 06/27/2023 16:24:33 Hyperlipidemia 17423848 E78.5 Chronic ob structive pulmonary disease 04632620 J44.9 Peripheral arterial occlusive disease 188757529 I73.9 Anxiety 88232719 F41.9 Essential hypertension 00674778 I10 Tobacco de pendence syndrome 68555336 F17.883 [id number] MD Harvey Waldron (Adult Med) [address] [place] [address] [id number] 0 10/22/2023 13:54:44 10/22/2023 15:15:00 Lesion of right external ear canal 6283850926 006119 H61.91 Essential hypertension 91201155 I10 Neck pain 28474356 M54.2 Screening for malignant neoplasm of prostate 396284589 Z12.5 Administra tion of pneumococcal vaccine 62660582 Z23 Hyperlipidemia 69798277 E78.5 Chronic ob structive pulmonary disease 44083304 J44.9 Anxiety 95005065 F41.9 [id number] MD Harvey Waldron (Adult Med) [address] [place] [address] [id number] 02/14/2024 10:40:35 02/14/2024 12:07:56 Body mass index 25-29 - overweight 890750989 Z68.25 Overweight 583157827 E66 .3 Screening for malignant neoplasm of colon 567246678 Z12.11 Chronic ob structive pulmonary disease 49554007 J44.9 Anxiety 40972753 F41.9 Essential hypertension 34786101 I10 Hyperlipidemia 08639055 E78.5 Peripheral arterial occlusive disease 446967052 I73.9 [id number] MD Harvey Waldron (Adult Med) [address] [place] [address] [id number] 0 02/21/2024 11:26:31 02/21/2024 12:56:25 Adult health examination 256999459 Z00.00 Health Risk Assessment collected and reviewed Nicotine dependence 5629 4008 F17.200 Health Concerns Section Related Observation LastModified by Organization Detai ls LastModified Time None Recorded Concern Status LastModified by Organization Details LastModified Time None Recorded Advance Directives Directive N: Payers Encounter Date Sequence Insurance Name Policy Number Policy Auguste Covered Member ID Auguste Member ID Guarantor Name 06/27/2023 2 [place] 111 Vinny Alicea Judy [id number] Vinny Spencer Judy 06/27/2023 1 [place] Vinny Alicea Judy [id number] Vinny Spencer Judy 10/22/2023 1 [place] Vinny Alicea Judy [id number] Vinny Spencer Judy 10/22/2023 2 [place] 111 Vinny Alicea Judy [id number] Vinny Tj Casewalski 02/14/2024 1 [place] Vinny Alicea Judy [id number] Vinnyjosie Casewalski 02/14/2024 2 [place] 111 Vinny Alice[address] Judy [id number] Vinnyjosie Casewalski 02/21/2024 1 [place] Vinny Alicea Judy [id number] Vinny Spencer Judy 02/21/2024 2 [place] 111 Vinny Alicea Judy [id number] Vinny Spencer Judy Notes Date Note Type Note Provider Name and Address Organization Details Recorded Time 06/27/2023 text/html Hyperlipidemia h e is doing good with regards to intake of red meat COPD continues to smoke he is not having any problems breathing hypertension blood pressure is good no sign of medication. Anxiety stable no SI or HI still smoking not interested in stopping Adri London MD Attn: Accounting[address] [place], [address], [place] [facility] 06/27/2023 22:27:18 10/22/2023 text/html Hyperlipidemia h e is doing good with regards to intake of red meat COPD continues to smoke he is not having any problems breathing hypertension blood pressure is good no sign of medication. Anxiety stable no SI or HI still smoking not interested in stopping . Lesion right ear undetermined amount of time he has been having some neck pain when he got a flexes and extends his neck with no radicular symptoms no trauma Adri London MD Attn: Accounting,[address], [place], [address], [facility] 10/22/2023 23:22:39 02/14/2024 text/html peripheral arter ial occlusive disease no claudication but he continues to smoke. Smoker not interested in quitting. Hypertension no headache or dizziness. COPD maintained on albuterol he uses it sparingly. Anxiety sertraline doing well no SI HI or side effects. Interval history diagnosed with prostate cancer active surveillance. Hyperlipidemia his diet is pretty good and he is tolerating his atorvastatin Adri London MD Attn: Accounting,[address], [place], [address], [facility] 02/15/2024 17:21:22 02/21/2024 text/html MAW 2Reported bypatient.Diet and Nutrition:healthy diet Fracture Risk:no sudden unexplained fractures;history of fractures Concentration and Memory:no decreased concentrating ability; no memory lapses or loss; does not forget words Speech/Motor difficulties:no speech difficulties; no difficulty expressing formulated concepts; no difficulty with fine manipulative tasks; no difficulty writing/copying; no slowed reaction time; does not knock things over when trying to pick them up Hearing:loss of hearing: in both ears Vision:worse with distance(glasses) Activities of Daily Living:able to bathe with limited or no assistance; able to contol urination and bowels; able to dress with limited or no assistance; able to feed self with limited or no assistance; able to get out of chair or bed with limited or no assistance; able to groom with limited or no assistance; able to toilet with limited or no assistance Instrumental Activities of Daily Living:able to do house work with limited or no assistance; able to grocery shop with limited or no assistance; able to manage medications with limited or no assistance; able to manage money with limited or no assistance; able to prepare meals with limited or no assistance; able to use the phone with limited or no assistance Falls Risk Assessment:no frequent falls while walking; no fall in the past year; no fall since last visit; no dizziness/vertigo Home Safety:reviewed sun protection; no unsafe herson hazzards; no unsafe stairs; working smoke/CO detectors; practicing 'safer sex'; no fire arms; has hand bars in the bathroom/shower; good lighting in the home Adri London MD Attn: Accounting[address] [place], [address], [place] [facility] 02/21/2024 21:45:31
--- OUTSIDE RECORDS SUMMARY | 2024-05-28 00:55 | XMS_ITS | Clinical Summary ---
Author Organization [facility] Address [facility] [place] [address] Care Team Providers Care Brand Marketing Manager Name Role Phone Keenan London MD Primary Care Provider [phone] Allergies No known active allergies Medications lisinopril (PRINIVIL) 20 MG tablet Take 1 tablet (20 mg total) by mouth daily. Active sertraline (ZOLOFT) 50 MG tablet Take 1 tablet (50 mg total) by mouth nightly. Active atorvastatin (LIPITOR) 20 MG tablet Take 1 tablet (20 mg total) by mouth daily. Active clopidogrel (PLAVIX) 75 MG tablet Take 1 tablet (75 mg total) by mouth daily. Active Multiple Vitamin (MULTIVITAMIN ADULT OR) Take 1 tablet by mouth daily. Active albuterol sulfate HFA 108 (90 Base) MCG/ACT inhaler Inhale 2 puffs into the lungs every 6 (six) hours as needed for Wheezing. Active Active Problems No known active problems Social History Tobacco Use Types Packs/Day Years Used Date Smoking Tobacco: Every Day Cigarettes 1 50.1 Started: 1976 Smokeless Tobacco: Never Tobacco Cessation:Ready to Q uit: Not Asked; Counseling Given: Not Answered Alcohol Use Standard Drinks/Week Comments Not Currently 0 (1 standard drink = 0.6 oz pur e alcohol) Sex and Gender Information Value Date Recorded Sex Assigned at Not on file Legal Sex Male 9:55 AM CDT Gender Identity Not on file Sexual Orientation Not on file Last Filed Vital Signs Vital Sign Reading Time Taken Comments Blood Pressure 121/66 01/02/2024 4:50 PM CDT Pulse 50 01/02/2024 4:50 PM CDT Temperature 36.2 C (97.2 F) 01/02/2024 4:50 PM CDT Respiratory Rate 16 01/02/2024 4:50 PM CDT Oxygen Saturation 98% 01/02/2024 4:50 PM CDT Inhaled Oxygen Concentration - - Weight 80.5 kg (177 lb 7.5 oz) 01/02/2024 12:20 PM CDT Height 180.3 cm (5' 11 ) 01/02/2024 12:20 PM CDT Body Mass Index 24.75 01/02/2024 12:20 PM CDT Plan of Treatment Health Maintenance Due Date Last Done Comments Colorectal Cancer Screening Colonoscopy (10 Years) 1960 Hepatitis C 02/03/1976 DTaP, Tdap and Td Vaccines (1 - Tdap) 1977 Lung Cancer Screening 02/03/2008 Zoster Vaccines (1 of 2) 02/03/2008 AAA SCREENING 2023 Annual Medicare Wellness Visit 2023 RSV Immunization or 60+ Years Completed 01/18/2023 Pneumococcal Vaccine: 65+ Years Completed 10/22/2023 COVID-19 Vaccine Completed 01/15/2024, 07/2021, 02/10/2021, Additional history exists Influenza Adult Completed 01/15/2024, 09/2022, 01/16/2022, Additional history exists Meningococcal B Vaccine Aged Out No l onger eligible based on patient's age to complete this topic Meningococcal Vaccine Aged Out No christopher rosangela eligible based on patient's age to complete this topic RSV Immunizations Under 20 Months Aged Out No longer eligible based on patient's age to complete this topic Insurance [facility] MEDICARE Care Teams Brand Marketing Manager Relationship Specialty Start Date End Date Keenan London MD [address] [address] PCP - General INTERNAL MEDICINE 12/25/23
--- OUTSIDE RECORDS SUMMARY | 2024-05-28 00:55 | XMS_ITS | Continuity of Care Document ---
Author Name [facility] Organization [facility] Care Team Providers Care Electrolytic De Scaler Name Role Phone [facility] Unavailable Unavailable Problems Combined list of problems from [facility] facilities. It does not include entries that were removed or entered in error. Problem Status Onset Date Problem Type Date of Resolution Comments Source Benign essential hypertension Active Condition [facility] Benign prostatic hyperplasia Active Condition [facility] Depression Active Condition [facility] Hyperlipidemia Active Condition [facility] Light tobacco smoker Active Condition [facility] Peripheral vascular disease Active Condition [facility] Tinnitus Active Condition [facility] Medications Combined list of outpatient medications from [facility] facilities.Medications provided include 1) outpatient medications from the last 15 months, and 2) patient-reported medications. Medication Details Route Status Patient Instructions Prescription Expires Prescription Number Last Dispense Date Ordering Provider Order Date Order Qty Source ALBUTEROL SO4 90MCG/ACTUA T (CFC-F) INHL,ORAL,8 .5GM INHALE 2 PUFFS BY ORAL INHALATI ON FOUR TIMES A DAY NEEDED RESPIR ATORY (INHAL ATION) REX GUERRERO T 2022 [facility] ATORVASTATI N CA 40MG TAB TAKE ONE-HALF TABLET BY MOUTH EVERY EVENING ORAL ACTIVE MILTONREX Singh T 2020 [facility] CLOPIDOGREL BISULFATE 75MG TAB TAKE ONE TABLET BY MOUTH ONCE A DAY ORAL ACTIVE MILTONREX NEUMANN T 2019 [facility] LISINOPRIL 40MG TAB TAKE ONE-HALF TABLET BY MOUTH ONCE A DAY ORAL ACTIVE MILTONREX Singh T 2019 [facility] MULTIVITAMI NS CAP/TAB TAKE ONE TABLET BY MOUTH ONCE A DAY ORAL ACTIVE MILTONREX Singh T 2019 [facility] SERTRALINE HCL 100MG TAB TAKE ONE-HALF TABLET BY MOUTH EVERY MORNING ORAL ACTIVE MILTON,MOH CAMERON Davidson 2022 [facility] TAMSULOSIN HCL 0.4MG CAP TAKE 1 CAPSULE BY MOUTH EVERY EVENING ORAL ACTIVE MILTON,REX Davidson 2022 [facility] Immunizations Combined list of available immunizations from the Department of Defense and [facility] Affairs facilities. Immunization Series Date Given Administered By Site Reaction Lot Number CVX Code [employer] Studio Producer Status Comments Source INFLUENZA, UNSPECIFIED FORMULATION [address] [facility] INFLUENZA, UNSPECIFIED FORMULATION [address] [facility] Results Combined list of recent chemistry, hematology and other laboratory results from [facility] and [facility], ranging from 15 months to all on record, depending upon the facility. Order Name Results Value Reference Range Date Interpretation Specimen Comments Source COMPREHEN SIVE METABOLIC PANEL CREATININE [MASS/VOLUM E] IN SERUM OR PLASMA 1.07 mg/dL 0.7 - 1.3 08/22 Specimen Type: PLASMA Comment: No hemolysis noted. Ordering Provider: KEESHA ROSE Report Released Date/Time: August 22, 2022 09:47 AM Reporting Lab: [facility] [address] [facility] [address] Performing Lab: [facility] [address] [place] [phone] [facility] COMPREHEN SIVE METABOLIC PANEL UREA NITROGEN [MASS/VOLUM E] IN SERUM OR PLASMA 13 mg/dL 9 - 25 08/22 Specimen Type: PLASMA Comment: No hemolysis noted. Ordering Provider: KEESHA ROSE Report Released Date/Time: August 22, 2022 09:47 AM Reporting Lab: [facility] [address] [facility] [phone] Performing Lab: [facility] [address] [place] [phone] [facility] COMPREHEN SIVE METABOLIC PANEL GLUCOSE [MASS/VOLUM E] IN SERUM OR PLASMA 96 mg/dL 72 - 99 08/22 Specimen Type: PLASMA Comment: No hemolysis noted. Ordering Provider: KEESHA ROSE Report Released Date/Time: August 22, 2022 09:47 AM Reporting Lab: [facility] [address] [facility] [phone] Performing Lab: [facility] [address] [facility] [address] [facility] COMPREHEN SIVE METABOLIC PANEL SODIUM [MOLES/VOLU ME] IN SERUM OR PLASMA 139 meq/L 136 - 145 08/22 Specimen Type: PLASMA Comment: No hemolysis noted. Ordering Provider: KEESHA ROSE Report Released Date/Time: August 22, 2022 09:47 AM Reporting Lab: [facility] [address] [facility] [address] Performing Lab: [facility] [address] [place] [phone] [facility] COMPREHEN SIVE METABOLIC PANEL POTASSIUM [MOLES/VOLU ME] IN SERUM OR PLASMA 3.7 meq/L 3.5 - 5 08/22 Specimen Type: PLASMA Comment: No hemolysis noted. Ordering Provider: KEESHA ROSE Report Released Date/Time: August 22, 2022 09:47 AM Reporting Lab: [facility] [address] [facility] [phone] Performing Lab: [facility] [address] [facility] [phone] [facility] COMPREHEN SIVE METABOLIC PANEL CHLORIDE [MOLES/VOLU ME] IN SERUM OR PLASMA 105 meq/L 98 - 107 08/22 Specimen Type: PLASMA Comment: No hemolysis noted. Ordering Provider: KEESHA ROSE Report Released Date/Time: August 22, 2022 09:47 AM Reporting Lab: [facility] [address] [facility] [address] Performing Lab: [facility] [address] [facility] [phone] [facility] COMPREHEN SIVE METABOLIC PANEL CARBON DIOXIDE, TOTAL [MOLES/VOLU ME] IN SERUM OR PLASMA 24 meq/L 22 - 31 08/22 Specimen Type: PLASMA Comment: No hemolysis noted. Ordering Provider: KEESHA ROSE Report Released Date/Time: August 22, 2022 09:47 AM Reporting Lab: [address] [phone] Performing Lab: [phone] [place] [address] COMPREHEN SIVE METABOLIC PANEL CALCIUM [MASS/VOLUM E] IN SERUM OR PLASMA 9.4 mg/dL 8.4 - 10.4 08/22 Specimen Type: PLASMA Comment: No hemolysis noted. Ordering Provider: KEESHA ROSE Report Released Date/Time: August 22, 2022 09:47 AM Reporting Lab: [address] [address] Performing Lab: [address] [address] [facility] COMPREHEN SIVE METABOLIC PANEL PROTEIN [MASS/VOLUM E] IN SERUM OR PLASMA 6.8 g/dL 6 - 8.6 08/22 Specimen Type: PLASMA Comment: No hemolysis noted. Ordering Provider: KEESHA ROSE Report Released Date/Time: August 22, 2022 09:47 AM Reporting Lab: [address] [address] Performing Lab: [address] [address] [facility] COMPREHEN SIVE METABOLIC PANEL ALBUMIN [MASS/VOLUM E] IN SERUM OR PLASMA 4.2 g/dL 3.4 - 5 08/22 Specimen Type: PLASMA Comment: No hemolysis noted. Ordering Provider: KEESHA ROSE Report Released Date/Time: August 22, 2022 09:47 AM Reporting Lab: [address] [phone] Performing Lab: [address] [place] [address] [facility] COMPREHEN SIVE METABOLIC PANEL BILIRUBIN.T OTAL [MASS/VOLUM E] IN SERUM OR PLASMA 0.4 mg/dL 0.2 - 1.2 08/22 Specimen Type: PLASMA Comment: No hemolysis noted. Ordering Provider: KEESHA ROSE Report Released Date/Time: August 22, 2022 09:47 AM Reporting Lab: [facility] [address] [place] [phone] Performing Lab: [address] [address] [facility] COMPREHEN SIVE METABOLIC PANEL ALKALINE PHOSPHATASE [ENZYMATIC ACTIVITY/VO LUME] IN SERUM OR PLASMA 76 U/L 40 - 150 08/22 Specimen Type: PLASMA Comment: No hemolysis noted. Ordering Provider: KEESHA ROSE Report Released Date/Time: August 22, 2022 09:47 AM Reporting Lab: [facility] [address] [place] [phone] Performing Lab: [facility] [address] [place] [phone] [facility] COMPREHEN SIVE METABOLIC PANEL ASPARTATE AMINOTRANSF ERASE [ENZYMATIC ACTIVITY/VO LUME] IN SERUM OR PLASMA 19 U/L 5 - 34 08/22 Specimen Type: PLASMA Comment: No hemolysis noted. Ordering Provider: KEESHA ROSE Report Released Date/Time: August 22, 2022 09:47 AM Reporting Lab: [facility] [address] [facility] [phone] Performing Lab: [address] [phone] [facility] COMPREHEN SIVE METABOLIC PANEL ALANINE AMINOTRANSF ERASE [ENZYMATIC ACTIVITY/VO LUME] IN SERUM OR PLASMA 17 U/L 8 - 40 08/22 Specimen Type: PLASMA Comment: No hemolysis noted. Ordering Provider: KEESHA ROSE Report Released Date/Time: August 22, 2022 09:47 AM Reporting Lab: [facility] [address] [facility] [address] Performing Lab: [facility] [address] [facility] [address] [facility] COMPREHEN SIVE METABOLIC PANEL GLOMERULAR FILTRATION RATE/1.73 SQ M.PREDICTED [VOLUME RATE/AREA] IN SERUM, PLASMA OR BLOOD BY CREATININE- BASED FORMULA (CKD-EPI 2020) 77.5 <60 - 60 08/22 Specimen Type: PLASMA Comment: No hemolysis noted. Ordering Provider: KEESHA ROSE Report Released Date/Time: August 22, 2022 09:47 AM Reporting Lab: [facility] [address] [place] [phone] Performing Lab: [address] [address] [facility] LIPID PANEL (STL) CHOLESTEROL [MASS/VOLUM E] IN SERUM OR PLASMA 148 mg/dL 0 - 200 08/22 Specimen Type: PLASMA Comment: No hemolysis noted. Ordering Provider: KEESHA ROSE Report Released Date/Time: August 22, 2022 09:47 AM Reporting Lab: [facility] [address] [place] [phone] Performing Lab: [facility] [address] [place] [phone] [facility] LIPID PANEL (STL) TRIGLYCERID E [MASS/VOLUM E] IN SERUM OR PLASMA 105 mg/dL 0 - 150 08/22 Specimen Type: PLASMA Comment: No hemolysis noted. Ordering Provider: KEESHA ROSE Report Released Date/Time: August 22, 2022 09:47 AM Reporting Lab: [facility] [address] [place] [phone] Performing Lab: [facility] [address] [place] [phone] [facility] LIPID PANEL (STL) CHOLESTEROL IN LDL [MASS/VOLUM E] IN SERUM OR PLASMA BY CALCULATION 77 mg/dL 08/22 Specimen Type: PLASMA Comment: No hemolysis noted. Ordering Provider: KEESHA ROSE Report Released Date/Time: August 22, 2022 09:47 AM Reporting Lab: [place] [phone] Performing Lab: [address] [phone] [place] [address] LIPID PANEL (STL) CHOLESTEROL IN HDL [MASS/VOLUM E] IN SERUM OR PLASMA 50 mg/dL 40 08/22 Specimen Type: PLASMA Comment: No hemolysis noted. Ordering Provider: KEESHA ROSE Report Released Date/Time: August 22, 2022 09:47 AM Reporting Lab: [place] [address] Performing Lab: [address] [phone] CBC LEUKOCYTES [#/VOLUME] IN BLOOD BY AUTOMATED COUNT 5.9 10*3/u L 3.6 - 11.2 08/22 Specimen Type: BLOOD No comment entered. Ordering Provider: KEESHA ROSE Report Released Date/Time: August 22, 2022 09:47 AM Reporting Lab: [address] [address] Performing Lab: [address] [phone] [place] [address] CBC ERYTHROCYTE S [#/VOLUME] IN BLOOD BY AUTOMATED COUNT 5.09 10*6/u L 4.10 - 5.70 08/22 Specimen Type: BLOOD No comment entered. Ordering Provider: KEESHA ROSE Report Released Date/Time: August 22, 2022 09:47 AM Reporting Lab: [address] [phone] Performing Lab: [address] [phone] [place] [address] CBC HEMOGLOBIN [MASS/VOLUM E] IN BLOOD 16.0 g/dL 13.1 - 16.8 08/22 Specimen Type: BLOOD No comment entered. Ordering Provider: KEESHA ROSE Report Released Date/Time: August 22, 2022 09:47 AM Reporting Lab: [facility] [address] [place], [place] [phone] [address]: [facility] [address] [place], [place] [phone] [place] [address] CBC HEMATOCRIT [VOLUME FRACTION] OF BLOOD 48.1 38.2 - 48.4 08/22 Specimen Type: BLOOD No comment entered. Ordering Provider: KEESHA ROSE Report Released Date/Time: August 22, 2022 09:47 AM Reporting Lab: [place] [address] Performing Lab: [address] CBC MCV [ENTITIC VOLUME] BY AUTOMATED COUNT 94.5 fL 80.0 - 100.0 08/22 Specimen Type: BLOOD No comment entered. Ordering Provider: KEESHA ROSE Report Released Date/Time: August 22, 2022 09:47 AM Reporting Lab: [facility] [address] [place] [address] Performing Lab: [place] [phone] CBC MCH [ENTITIC MASS] BY AUTOMATED COUNT 31.4 pg 27.0 - 34.0 08/22 Specimen Type: BLOOD No comment entered. Ordering Provider: KEESHA ROSE Report Released Date/Time: August 22, 2022 09:47 AM Reporting Lab: [facility] [address] [place], [place] [phone] Performing Lab: [facility] [address] [place] [address] CBC MCHC [MASS/VOLUM E] BY AUTOMATED COUNT 33.3 g/dL 33.0 - 36.0 08/22 Specimen Type: BLOOD No comment entered. Ordering Provider: KEESHA ROSE Report Released Date/Time: August 22, 2022 09:47 AM Reporting Lab: [facility] [address] [place] [phone] Performing Lab: [facility] [address] [facility] [phone] [facility] CBC PLATELETS [#/VOLUME] IN BLOOD BY AUTOMATED COUNT 261 10*3/u L 150 - 400 08/22 Specimen Type: BLOOD No comment entered. Ordering Provider: KEESHA ROSE Report Released Date/Time: August 22, 2022 09:47 AM Reporting Lab: [facility] [address] [place] [phone] Performing Lab: [facility] [address] [place], [place] [phone] [place] [address] CBC PLATELET MEAN VOLUME [ENTITIC VOLUME] IN BLOOD BY AUTOMATED COUNT 10.0 fL 7.5 - 11.2 08/22 Specimen Type: BLOOD No comment entered. Ordering Provider: KEESHA ROSE Report Released Date/Time: August 22, 2022 09:47 AM Reporting Lab: [facility] [address] [place] [phone] Performing Lab: [facility] [address] [place] [phone] [place] [address] CBC ERYTHROCYTE DISTRIBUTIO N WIDTH [RATIO] BY AUTOMATED COUNT 12.9 11.8 - 15.1 08/22 Specimen Type: BLOOD No comment entered. Ordering Provider: KEESHA ROSE Report Released Date/Time: August 22, 2022 09:47 AM Reporting Lab: [facility] [address] [place] [phone] Performing Lab: [facility] [address] [place] [phone] [facility] CBC LYMPHOCYTES /100 LEUKOCYTES IN BLOOD BY AUTOMATED COUNT 27 08/22 Specimen Type: BLOOD No comment entered. Ordering Provider: KEESHA ROSE Report Released Date/Time: August 22, 2022 09:47 AM Reporting Lab: [facility] [address] [facility] [phone] Performing Lab: [facility] [address] [facility] [phone] [facility] CBC MONOCYTES/1 00 LEUKOCYTES IN BLOOD BY AUTOMATED COUNT 7 08/22 Specimen Type: BLOOD No comment entered. Ordering Provider: KEESHA ROSE Report Released Date/Time: August 22, 2022 09:47 AM Reporting Lab: [facility] [address] [facility] [phone] Performing Lab: [facility] [address] [place] [phone] [facility] CBC NEUTROPHILS /100 LEUKOCYTES IN BLOOD BY AUTOMATED COUNT 63 08/22 Specimen Type: BLOOD No comment entered. Ordering Provider: KEESHA ROSE Report Released Date/Time: August 22, 2022 09:47 AM Reporting Lab: [facility] [address] [place] [phone] Performing Lab: [facility] [address] [place] [phone] [facility] CBC EOSINOPHILS /100 LEUKOCYTES IN BLOOD BY AUTOMATED COUNT 2 08/22 Specimen Type: BLOOD No comment entered. Ordering Provider: KEESHA ROSE Report Released Date/Time: August 22, 2022 09:47 AM Reporting Lab: [facility] [address] [place] [phone] Performing Lab: [facility] [address] [facility] [phone] [facility] CBC BASOPHILS/1 00 LEUKOCYTES IN BLOOD BY AUTOMATED COUNT 1 08/22 Specimen Type: BLOOD No comment entered. Ordering Provider: KEESHA ROSE Report Released Date/Time: August 22, 2022 09:47 AM Reporting Lab: [facility] [address] [place] [phone] Performing Lab: [facility] [address] [place] [phone] [facility] CBC LYMPHOCYTES [#/VOLUME] IN BLOOD BY AUTOMATED COUNT 1.58 10*3/u L 0.77 - 4.50 08/22 Specimen Type: BLOOD No comment entered. Ordering Provider: KEESHA ROSE Report Released Date/Time: August 22, 2022 09:47 AM Reporting Lab: [place] [phone] Performing Lab: [address] CBC MONOCYTES [#/VOLUME] IN BLOOD BY AUTOMATED COUNT 0.44 10*3/u L 0.19 - 1.50 08/22 Specimen Type: BLOOD No comment entered. Ordering Provider: KEESHA ROSE Report Released Date/Time: August 22, 2022 09:47 AM Reporting Lab: [place] [address] Performing Lab: [address] CBC NEUTROPHILS [#/VOLUME] IN BLOOD BY AUTOMATED COUNT 3.72 10*3/u L 2.10 - 8.00 08/22 Specimen Type: BLOOD No comment entered. Ordering Provider: KEESHA ROSE Report Released Date/Time: August 22, 2022 09:47 AM Reporting Lab: [address] [phone] Performing Lab: [address] [phone] [place] [address] CBC EOSINOPHILS [#/VOLUME] IN BLOOD BY AUTOMATED COUNT 0.12 10*3/u L 0.00 - 0.60 08/22 Specimen Type: BLOOD No comment entered. Ordering Provider: KEESHA ROSE Report Released Date/Time: August 22, 2022 09:47 AM Reporting Lab: [address] [phone] Performing Lab: [place] [phone] CBC BASOPHILS [#/VOLUME] IN BLOOD BY AUTOMATED COUNT 0.05 10*3/u L 0.00 - 0.20 08/22 Specimen Type: BLOOD No comment entered. Ordering Provider: KEESHA ROSE Report Released Date/Time: August 22, 2022 09:47 AM Reporting Lab: [address] [address] Performing Lab: [place] [phone] HGA1C HEMOGLOBIN A1C/HEMOGLO BIN.TOTAL IN BLOOD 5.5 4.0 - 6.0 08/22 Specimen Type: BLOOD Comment: No hemolysis noted. Ordering Provider: KEESHA ROSE Report Released Date/Time: August 22, 2022 09:47 AM Reporting Lab: [address] [phone] Performing Lab: [address] [phone] [place] [address] URINALYSI S (STL) COLOR OF URINE Light- Yellow 08/22 Specimen Type: URINE No comment entered. Ordering Provider: KEESHA ROSE Report Released Date/Time: August 22, 2022 09:47 AM Reporting Lab: [address] [phone] Performing Lab: [address] [phone] [place] [address] URINALYSI S (STL) BILIRUBIN.T OTAL [PRESENCE] IN URINE BY TEST STRIP Negati vemg/d L 08/22 Specimen Type: URINE No comment entered. Ordering Provider: KEESHA ROSE Report Released Date/Time: August 22, 2022 09:47 AM Reporting Lab: [address] [phone] Performing Lab: [address] [phone] [facility] URINALYSI S (STL) PH OF URINE BY TEST STRIP 6.0 5.0 - 8.0 08/22 Specimen Type: URINE No comment entered. Ordering Provider: KEESHA ROSE Report Released Date/Time: August 22, 2022 09:47 AM Reporting Lab: [address] [phone] Performing Lab: [address] [phone] [facility] URINALYSI S (STL) APPEARANCE OF URINE Clear 08/22 Specimen Type: URINE No comment entered. Ordering Provider: KEESHA ROSE Report Released Date/Time: August 22, 2022 09:47 AM Reporting Lab: [address] [phone] Performing Lab: [address] [phone] [place] [address] URINALYSI S (STL) NITRITE [PRESENCE] IN URINE BY TEST STRIP Negati vemg/d L 08/22 Specimen Type: URINE No comment entered. Ordering Provider: KEESHA ROSE Report Released Date/Time: August 22, 2022 09:47 AM Reporting Lab: [address] [phone] Performing Lab: [address] [phone] [facility] URINALYSI S (STL) GLUCOSE [MASS/VOLUM E] IN URINE BY TEST STRIP Normal mg/dL 08/22 Specimen Type: URINE No comment entered. Ordering Provider: KEESHA ROSE Report Released Date/Time: August 22, 2022 09:47 AM Reporting Lab: [address] [phone] Performing Lab: [address] [phone] [facility] URINALYSI S (STL) PROTEIN [MASS/VOLUM E] IN URINE BY TEST STRIP Negati vemg/d L - 20 08/22 Specimen Type: URINE No comment entered. Ordering Provider: KEESHA ROSE Report Released Date/Time: August 22, 2022 09:47 AM Reporting Lab: [address] [phone] Performing Lab: [place] [phone] [place] [address] URINALYSI S (STL) URN.UROBILI NOGEN Normal mg/dL 08/22 Specimen Type: URINE No comment entered. Ordering Provider: KEESHA ROSE Report Released Date/Time: August 22, 2022 09:47 AM Reporting Lab: [address] [phone] Performing Lab: [place] [phone] [place] [address] URINALYSI S (STL) HEMOGLOBIN [MASS/VOLUM E] IN URINE BY TEST STRIP Negati vemg/d L 08/22 Specimen Type: URINE No comment entered. Ordering Provider: KEESHA ROSE Report Released Date/Time: August 22, 2022 09:47 AM Reporting Lab: [address] [phone] Performing Lab: [address] [address] [facility] URINALYSI S (STL) KETONES [MASS/VOLUM E] IN URINE BY TEST STRIP Negati vemg/d L 08/22 Specimen Type: URINE No comment entered. Ordering Provider: KEESHA ROSE Report Released Date/Time: August 22, 2022 09:47 AM Reporting Lab: [address] [phone] Performing Lab: [address] [phone] [facility] URINALYSI S (STL) URN.LEUK.ES T. Negati vemg/d L 08/22 Specimen Type: URINE No comment entered. Ordering Provider: KEESHA ROSE Report Released Date/Time: August 22, 2022 09:47 AM Reporting Lab: [address] [address] Performing Lab: [address] [phone] [place] [address] URINALYSI S (STL) SPECIFIC GRAVITY OF URINE 1.010 1.005 - 1.029 08/22 Specimen Type: URINE No comment entered. Ordering Provider: KEESHA ROSE Report Released Date/Time: August 22, 2022 09:47 AM Reporting Lab: [address] [phone] Performing Lab: [address] [phone] [facility] PROST. SPECIFIC AG.(PB-ST L) PROSTATE SPECIFIC AG [MASS/VOLUM E] IN SERUM OR PLASMA 2.926 ng/mL 0 - 4 08/22 Specimen Type: SERUM Comment: The listed sex of this patient may not be a typical indication for this test. Therefore, reference ranges or interpretiv e criteria listed may not be valid. Clinical correlation suggested. Ordering Provider: KEESHA ROSE Report Released Date/Time: August 22, 2022 09:47 AM Reporting Lab: [facility] [address] [place] [id number] Performing Lab: [address] [address] [facility] B12 COBALAMIN (VITAMIN B12) [MASS/VOLUM E] IN SERUM OR PLASMA 464 pg/mL 213 - 816 08/22 Specimen Type: SERUM Comment: The listed sex of this patient may not be a typical indication for this test. Therefore, reference ranges or interpretiv e criteria listed may not be valid. Clinical correlation suggested. Ordering Provider: KEESHA ROSE Report Released Date/Time: August 22, 2022 09:47 AM Reporting Lab: [address] [phone] Performing Lab: [address] [address] [facility] VITAMIN D, 25-HYDROX Y 25-HYDROXYV ITAMIN D3 [MASS/VOLUM E] IN SERUM OR PLASMA 34.5 ng/mL 30 - 96 08/22 Specimen Type: SERUM Comment: The listed sex of this patient may not be a typical indication for this test. Therefore, reference ranges or interpretiv e criteria listed may not be valid. Clinical correlation suggested. Ordering Provider: KEESHA ROSE Report Released Date/Time: August 22, 2022 09:47 AM Reporting Lab: [address] [id number] Performing Lab: [address] [address] [facility] Encounters Combined list of: 1) Encounters from [facility] of Veterans Affairs facilities going backup to the last 18 months, not all [place] inpatient encounters are included; 2) Encounters from the Department of [facility] facilities going backup to 280 months. Location Location Details Encounter Type Encounter Number Reason For Visit Attending Provider ADM Date DC Date Status Disposition Source [facility] Outpatient Encounter [id number] 05/24 [facility] Outpatient Encounter [id number] 05/[facility] Outpatient Encounter [id number] MAT VARGAS 05/24 [facility] Social History Combined list of available smoking, tobacco, and other social history from Department of Defense and Veterans Affairs facilities. 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
[2024-05-28 07:25] VITALS: BP 153/80; PULSE 77; RESP 20; TEMP 36.5; O2SAT 95
[2024-05-28] MEDS: LACTATED RINGERS 1,000 ML 150 ML IV CONT (07:34)
--- NOTE | 2024-05-28 07:59 | P.PNAN_ITS ---
Anes - Initial Pre Proc Eval Procedure: Operation Date: 05/28/24 08:30 Proposed Procedures p Screening Colonoscopy - Grant Son MD Date/Time: 05/28/24 07:59 Surgeon: Grant Son MD Pre Op Diagnosis: screening malignant neoplasm of colon Patient Data Age: 64 Gender: M Height: 1.8 m Weight: 80.4 kg Last Vital Signs Temp 36.5 C 05/28/24 07:25 Pulse 77 05/28/24 07:25 Resp 20 05/28/24 07:25 BP 153/80 H 05/28/24 07:25 Pulse Ox 95 05/28/24 07:25 O2 Del Method Room Air 05/28/24 07:25 Allergies Allergy/AdvReac Type Severity Reaction Status Date / Time No Known Allergies Allergy Verified 05/28/24 07:24 Home Medications ?Medication ?Instructions ?Recorded ?Confirmed ?Type atorvastatin 20 mg tablet 20 mg PO DAILY 10/08/21 05/28/24 History clopidogrel 75 mg tablet 75 mg PO DAILY 10/08/21 05/28/24 History lisinopril 20 mg tablet 20 mg PO DAILY 10/08/21 05/28/24 History albuterol sulfate 90 mcg/actuation 2 inh inhalation Q4H PRN shortness 05/22/24 05/22/24 History breath activated powder inhaler of breath or wheezing (ProAir RespiClick) vkoqeqmmbmct-wzs-qzlgq acid-vit 1 tablet PO DAILY 05/22/24 05/28/24 History K-lycop 400 mcg-20 mcg-370 mcg tablet (One Daily Men's 50 Plus with D3) sertraline 50 mg tablet 50 mg PO HS 05/22/24 05/28/24 History Patient hx anesthesia problems: none Family hx anesthesia problems: none Results Review: All pre-operative results and documents have been reviewed as part of the pre- operative evaluation. [facility] Past Medical History Medical History (Updated 05/28/24 @ 08:00 by Gerald Mays MD) PVD (peripheral vascular disease) COPD (chronic obstructive pulmonary disease) Social History Social History Smoking packs per day: 1 Smoking cigarettes per day: 20.0 Years smoked: 50 Smoking pack-years: 50.00 Smoking status: Current every day smoker Tobacco type: cigarettes Alcohol intake: current Substance use: current Substance use type: does not use Living arrangements: with family Spiritual care concerns: No Anes - Eval Final PreProcedure Day of Procedure 05/28/24 07:59 Patient weight: normal Heart: regular rate and rhythm Lungs: clear to auscultation Airway: Mallampati scale class II Neurological: alert and oriented Last oral intake: >/= 8 hours ASA classification: III Emergent: no Anesthetic plan: proceed Anesthesia type and monitoring: general GIVS and standard monitoring Results Review: All pre-operative results and documents have been reviewed as part of the pre- operative evaluation. Informed Consent: The patient's anesthetic plan and its attendant risks and benefits were discussed with the patient/family/POA. Questions were solicited and answers provided to the satisfaction of the patient/family/POA.
--- NOTE | 2024-05-28 08:25 | PM.IMHP ---
H&P: HPI History of Present Illness Date/Time: 05/28/24 08:25 Chief Complaint: Family history of colon cancer Narrative: This patient has family history of colorectal cancer. his mother had when she was 70. His last colonoscopy was 5 years ago, reportedly no polyps. Review of Systems Review of Systems: All systems reviewed & are unremarkable except as noted in HPI and below PMFSH Past Medical History Medical History (Updated 05/28/24 @ 08:26 by Grant Son MD) PVD (peripheral vascular disease) COPD (chronic obstructive pulmonary disease) Social History Social History Smoking packs per day: 1 Smoking cigarettes per day: 20.0 Years smoked: 50 Smoking pack-years: 50.00 Smoking status: Current every day smoker Tobacco type: cigarettes Alcohol intake: current Substance use: current Substance use type: does not use Living arrangements: with family Spiritual care concerns: No Meds Home Medications and Allergies Home Medications ?Medication ?Instructions ?Recorded ?Confirmed ?Type atorvastatin 20 mg tablet 20 mg PO DAILY 10/08/21 05/28/24 History clopidogrel 75 mg tablet 75 mg PO DAILY 10/08/21 05/28/24 History lisinopril 20 mg tablet 20 mg PO DAILY 10/08/21 05/28/24 History albuterol sulfate 90 mcg/actuation 2 inh inhalation Q4H PRN shortness 05/22/24 05/22/24 History breath activated powder inhaler of breath or wheezing (ProAir RespiClick) rtmvokyeobts-nxb-zfopl acid-vit 1 tablet PO DAILY 05/22/24 05/28/24 History K-lycop 400 mcg-20 mcg-370 mcg tablet (One Daily Men's 50 Plus with D3) sertraline 50 mg tablet 50 mg PO HS 05/22/24 05/28/24 History Allergies Allergy/AdvReac Type Severity Reaction Status Date / Time No Known Allergies Allergy Verified 05/28/24 07:24 Vital Signs Vital Signs - 24 hr 05/28/24 07:25 Temperature 97.7 F Pulse Rate 77 Respiratory Rate 20 Blood Pressure 153/80 H Pulse Oximetry 95 Oxygen Delivery Room Air Exam Const: General: cooperative and healthy appearing Resp: Effort & Inspection: normal respiratory effort and able to speak in complete sentences Auscultation: clear to auscultation bilaterally Cardio: Rate: regular rate Rhythm: regular rhythm GI: Inspection: normal to inspection GI Palp: No No hepatosplenomegaly present Auscultation: normal bowel sounds Rectal Exam: deferred Skin: General skin exam: normal color Psych: Appearance: grossly normal Mental Status: mental status grossly normal Assessment and Plan Assessment and plan (1) Family history of colon cancer: Code(s): Z80.0 - Family history of malignant neoplasm of digestive organs Status: Acute Assessment and Plan: The patient is deemed a good candidate for the procedure. Consent signed. Will proceed.
[2024-05-28 09:07] VITALS: BP 116/67; PULSE 64; RESP 15; O2SAT 99
[2024-05-28 09:17] VITALS: BP 113/70; PULSE 71; RESP 22; O2SAT 100
[2024-05-28 09:27] VITALS: BP 150/88; PULSE 61; RESP 20; O2SAT 100
== END 2024-05-28 09:38 | disposition home or self-care (01) ==
PROVIDERS: PCP Internal Medicine; Visit Provider Internal Medicine Gastroenterology
PROC: 0DJD8ZZ Inspection of Lower Intestinal Tract, Via Natural or Artificial Opening Endoscopic (ICD-10-PCS; CPT 45378; principal; 2024-05-28 08:30)
DX: Z12.11 Encounter for screening for malignant neoplasm of colon (principal); I73.9 Peripheral vascular disease, unspecified; J44.9 Chronic obstructive pulmonary disease, unspecified; F17.210 Nicotine dependence, cigarettes, uncomplicated; Z79.02 Long term (current) use of antithrombotics/antiplatelets; Z79.51 Long term (current) use of inhaled steroids; Z80.0 Family history of malignant neoplasm of digestive organs
CPT/HCPCS: G0105; J2003; J2704; J7120

== ENCOUNTER 2024-07-20 14:34 | Outpatient (CLI) | payer MEDICARE, BC, SELFPAY ==
--- NOTE | 2024-07-20 | ECHO_ITS ---
Patient Info Name: Vinny Kim Age: 64 years : 1960 Gender: Male Ht: 72 in Wt: 177 lbs BSA: 2.02 m2 HR: 79 bpm BP: 156 / 92 mmHg Heart Rhythm: Sinus Rhythm Technical Quality: Good Exam Date: 07/20/2024 2:55 PM Exam Location: Echo Lab Patient Status: Outpatient Admit Date: 07/20/2024 Staff Ordering Physician: SuryaKeenan MD Patternmaker All Around: Vielka Washington RDCS Attending Provider: ShelbiKeenan MD Exam Type: CA echo doppler color flow Study Info Indications I10 - Essential (primary) hypertension Complete two-dimensional, color flow and Doppler transthoracic echocardiogram is performed. Summary 1. Complete two-dimensional, color flow and Doppler transthoracic echocardiogram is performed. 2. There is normal biventricular size and systolic function. 3. There are no significant valvular abnormalities in this study. Left Ventricle The left ventricle is normal size and systolic function. The left ventricular ejection fraction is visually estimated to be 65-70%. Right Ventricle The right ventricle is normal in size and systolic function. Left Atria The left atrium is normal size. Right Atria Right atrium is normal size. Atrial Septum The atrial septum appears normal. Aortic Valve The aortic valve is trileaflet and opens well. There is no aortic regurgitation. Pulmonic Valve The pulmonic valve is not well visualized. There is no color Doppler evidence of pulmonic valve regurgitation. Mitral Valve The mitral valve is normal. There is trace mitral regurgitation. Tricuspid Valve The tricuspid valve is grossly normal. There is no appreciable tricuspid regurgitation in this study. Pericardium/Pleural Pericardium is normal in appearance with no evidence for significant pericardial effusion. Inferior Vena Cava Normal inferior vena cava with >50% collapse upon inspiration consistent with normal right atrial pressure, 3 mmHg. Aorta The aortic root is not well visualized. Left Ventricular Outflow Tract Name Value Normal LVOT 2D LVOT Diameter 2.0 cm LVOT Doppler LVOT Peak Gradient 4 mmHg LVOT Mean Gradient 2 mmHg LVOT VTI 19 cm LVOT VTI/AV VTI Ratio 0.8 LVOT Stroke Volume 56 ml LVOT CO 4.0 l/min LVOT CI 2.0 l/min/m2 Pulmonic Valve Name Value Normal RVOT Doppler RVOT Peak Gradient 4 mmHg PV Doppler PV Peak Gradient 5 mmHg Mitral Valve Name Value Normal MV Doppler MV Decel Brewster 308 cm/s2 MV PHT 70 ms MV Area (PHT) 3.2 cm2 4.0-5.0 MV Diastolic Function MV E Peak Velocity 74 cm/s MV A Peak Velocity 73 cm/s MV E/A 1.0 MV Decel Time 241 ms MV Annular TDI MV E/e' (Septal) 7.8 <=8.0 MV E/e' (Lateral) 8.4 <=8.0 MV E/e' (Average) 8.1 Tricuspid Valve Name Value Normal Estimated PAP/RSVP RA Pressure 3 mmHg <=5 Aorta Name Value Normal Ascending Aorta Ao Root Diameter (MM) 3.5 cm Ao Root Diam Index (MM) 1.7 cm/m2 Aortic Valve Name Value Normal AV Doppler AV Peak Velocity 137 cm/s AV Peak Gradient 8 mmHg AV Mean Gradient 3 mmHg AV VTI 23 cm AV Area (Cont Eq VTI) 2.5 cm2 >=3.0 AV Area (Cont Eq [place]) 2.1 cm2 AV Regurgitation 2D LVOT Area 3.0 cm2 Ventricles Name Value Normal LV Dimensions 2D/MM IVS Diastolic Thickness (2D) 0.7 cm 0.6-1.0 LVID Diastole (2D) 5.6 cm 4.2-5.8 LVIW Diastolic Thickness (2D) 0.7 cm 0.6-1.0 LVID Systole (2D) 3.3 cm 2.5-4.0 LVOT Diameter 2.0 cm LV Mass (2D Cubed) 140.88 g 88.00-224.00 LV Mass Index (2D Cubed) 70 g/m2 49-115 Relative Wall Thickness (2D) 0.24 LV Fractional Shortening/Ejection Fraction 2D/MM LV Fractional Shortening (2D) 42 % 25-43 LV EF (2D Teicholz) 72 % 52-72 LV Diastolic Volume (4C MOD) 77 ml LV EF (4C MOD) 63 % LV Diastolic Volume (2C MOD) 74 ml LV EF (2C MOD) 62 % LV Diastolic Volume (BP MOD) 79 ml 62-150 LV Diastolic Volume Index (BP MOD) 39 ml/m2 34-74 LV Systolic Volume (BP MOD) 30 ml 21-61 LV Systolic Volume Index (BP MOD) 15 ml/m2 11-31 LV EF (BP MOD) 62 % 52-72 LV Diastolic Length (4C) 7.9 cm LV Systolic Length (4C) 6.4 cm LV Stroke Volume (4C MOD) 48 ml Atria Name Value Normal LA Dimensions LA Dimension (MM) 3.6 cm 3.0-4.1 LA Volume (4C A-L) 44 ml LA Volume (BP A-L) 49 ml RA Dimensions RA Area (4C) 17.0 cm2 <=18.0 Report Signatures
--- OUTSIDE RECORDS SUMMARY | 2024-07-20 16:48 | XMS_ITS | Data Portability ---
Author Organization [facility] Address [address] [place] [address] Care Team Providers Care Credit Collections Specialist Name Role Phone ADRI LONDON Primary Care Provider BILLY FAIR Urologist Assessment Encounter Date Assessment [...] months time. Obtain records from previous clinic [email or web address] Not available 06/27/2023 22:26:35 10/22/2023 10/22/2023 ENT blood work tobacco cessation discussed in detail. Prevnar 20 follow up 4 months [email or web address] Not available 10/22/2023 23:22:16 02/14/2024 02/14/2024 his [...] are up-to-date see me in 3-4 months [email or web address] Not available 02/15/2024 17:21:02 02/21/2024 02/21/2024 assessments discussed immunizations and screenings ordered were appropriate and patient agreeable. We will keep regular follow up [email or web address] Not available 02/21/2024 21:44:59 06/26/2024 06/26/2024 tobacco cessatio n highly recommended he is not interested in that right now he was warned of the ill effects of took it back 0 which included but not limited to increase tumors of the aerodigestive tract increase incidence heart attack stroke and cancer that could lead to sudden or chronic medical illness for better blood pressure control increase lisinopril to 20 b.i.d. obtain echocardiogram other diagnosis and their management have been discussed he will see me back in 1 month Not available 06/27/2024 15:33:49 Plan of Treatment Reminders Order Date Submit Date Provider Last Modified By Organization Details Last Modified Time Details Appointments ANY 15 2024 10:15A Dariela London MD Not available Not available Not available Lab PSA, total, serum or plasma 2023 024 [facility], [address], [place], [address], 10/23/2023 13:12:17 CBC w/ auto diff 2023 024 [facility], [address], [place], [address], 10/23/2023 13:12:16 lipid panel, serum 2023 024 [facility], [address], [place], [address], 10/23/2023 13:12:15 CMP, serum or plasma 2023 024 [facility], [address], [place], [address], 10/23/2023 13:12:16 Referral ENT surgery referra l 2023 024 [facility], [address] [facility], [place], [address], 06/26/2024 11:08:56 Procedures colonos copy screeni ng (PROC) 2023 024 [facility], [address], [address], [place], [address], 05/28/2024 11:57:12 Surgeries None recorde d. Imaging electro cardiog celso 2024 025 [id number] In-Office Order, Internal Use Only DO Not Attach Compendium DO Not Attach Compendium, Do Not Delete/merge, [id number] 06/26/2024 15:33:23 LDCT, chest, for lung cancer screeni ng 2023 024 [facility] ([facility]), [address] [place], [address], 03/24/2024 11:45:57 XR, cervica l spine 2023 024 [facility] ([facility]), [address] [place], [address], 10/22/2023 16:31:51 Medication Orders lisinop ril 20 mg tablet 2024 025 [id number] [facility], [address] [place] [address], [place], [address], 06/26/2024 15:33:23 Patient TargetsNo targets recorded. Patient Instructions Encounter Date Encounter Id Patient Instructions Last Modified By Organization Details Last Modified Time 02/14/2024 [id number] A healthy lifestyle: care instructions [email or web address] Not available 02/14/2024 11:59:03 02/21/2024 [id number] Quitting Tobacco : Care Instructions [email or web address] Not available 02/21/2024 14:09:48 Medicare Well[employer] [facility] Preventive Checklist [email or web address] Not available 02/21/2024 14:09:48 Reason for Referral ENT Surgery Referral for Les ion of right external ear canal Referring Physician: Adri London, Internal Medicine, Encounter Date: 10/22/2023 Results Created Date Observation Date Name Description Value Unit Range Abnormal Flag Note LastModifiedBy Organization Detail LastModifiedTime 10/22/19 24 10/23/2023 LIPID PANEL cholesterol, total 153 mg/dL 100-19 9 Not Available [facility] ([facility]) [address] [place], [address], 10/23/2023 13:12:15 10/22/19 24 10/23/2023 LIPID PANEL triglyceride s 266 mg/dL 0-149 above high normal Not Available [facility] ([facility]) [address] [place], [address], 10/23/2023 13:12:15 10/22/19 24 10/23/2023 LIPID PANEL HDL cholesterol 44 mg/dL >39 Not Available [facility] ([facility] [address] [place], [address], 10/23/2023 13:12:15 10/22/19 24 10/23/2023 LIPID PANEL VLDL cholesterol polo 43 mg/dL 5-40 above high normal Not Available [facility] ([facility]) [address] [place], [address], 10/23/2023 13:12:15 10/22/19 24 10/23/2023 LIPID PANEL LDL chol calc ([facility]) 66 mg/dL 0-99 Not Available [facility] ([facility]) [address] [place], [address], 10/23/2023 13:12:15 10/22/19 24 10/23/2023 COMP. METAB OLIC PANEL (14) glucose 84 mg/dL 70-99 Not Available [facility] ([facility]) [address] [place], [address], 10/23/2023 13:12:16 10/22/19 24 10/23/2023 COMP. METAB OLIC PANEL (14) BUN 15 mg/dL 8-27 Not Available [facility] ([facility]) [address] [facility] [place], [address], 10/23/2023 13:12:16 10/22/19 24 10/23/2023 COMP. METAB OLIC PANEL (14) creatinine 1.05 mg/dL 0.76-1 .27 Not Available [facility] ([facility]) [address] [facility], [place], [address], 10/23/2023 13:12:16 10/22/19 24 10/23/2023 COMP. METAB OLIC PANEL (14) eGFR 79 mL/mi n/1.7 3 >59 Not Available [facility] ([facility]) [address] [facility], [place], [address], 10/23/2023 13:12:16 10/22/19 24 10/23/2023 COMP. METAB OLIC PANEL (14) BUN/creatini ne ratio 14 10-24 Not Available [facility] ([facility]) [address] [facility], [place], [address], 10/23/2023 13:12:16 10/22/19 24 10/23/2023 COMP. METAB OLIC PANEL (14) sodium 141 mmol/ L 134-14 4 Not Available [facility] ([facility]) [address] [place], [address], 10/23/2023 13:12:16 10/22/19 24 10/23/2023 COMP. METAB OLIC PANEL (14) potassium 4.6 mmol/ L 3.5-5. 2 Not Available [facility] ([facility]) [address] [place], [address], 10/23/2023 13:12:16 10/22/19 24 10/23/2023 COMP. METAB OLIC PANEL (14) chloride 104 mmol/ L 96-106 Not Available [facility] ([facility]) [address] [place], [address], 10/23/2023 13:12:16 10/22/19 24 10/23/2023 COMP. METAB OLIC PANEL (14) carbon dioxide, total 24 mmol/ L Not Available [facility] ([facility]) [address] [place], [address], 10/23/2023 13:12:16 10/22/19 24 10/23/2023 COMP. METAB OLIC PANEL (14) calcium 9.6 mg/dL 8.6-10 .2 Not Available [facility] ([facility]) [address] [place], [address], 10/23/2023 13:12:16 10/22/19 24 10/23/2023 COMP. METAB OLIC PANEL (14) protein, total 6.6 g/dL 6.0-8. 5 Not Available [facility] ([facility]) [address] [place], [address], 10/23/2023 13:12:16 10/22/19 24 10/23/2023 COMP. METAB OLIC PANEL (14) albumin 4.3 g/dL 3.9-4. 9 Not Available [facility] ([facility]) [address] [place], [address], 10/23/2023 13:12:16 10/22/19 24 10/23/2023 COMP. METAB OLIC PANEL (14) globulin, total 2.3 g/dL 1.5-4. 5 Not Available [facility] ([facility]) [address] [place], [address], 10/23/2023 13:12:16 10/22/19 24 10/23/2023 COMP. METAB OLIC PANEL (14) bilirubin, total 0.2 mg/dL 0.0-1. 2 Not Available [facility] ([facility]) [address] [place], [address], 10/23/2023 13:12:16 10/22/19 24 10/23/2023 COMP. METAB OLIC PANEL (14) alkaline phosphatase 112 IU/L 44-121 Not Available [facility] ([facility]) [address] [facility], [place], [address], 10/23/2023 13:12:16 10/22/19 24 10/23/2023 COMP. METAB OLIC PANEL (14) AST (SGOT) 20 IU/L 0-40 Not Available [facility] ([facility]) [address] [facility], [place], [address], 10/23/2023 13:12:16 10/22/19 24 10/23/2023 COMP. METAB OLIC PANEL (14) ALT (SGPT) 17 IU/L 0-44 Not Available [facility] ([facility]) [address] [facility], [place], [address], 10/23/2023 13:12:16 10/22/19 24 10/23/2023 CBC WITH DIFFE RENTI AL/PL ATELE T WBC 8.3 x10e3 /uL 3.4-10 .8 Not Available [facility] ([facility]) [address] [facility], [place], [address], 10/23/2023 13:12:16 10/22/19 24 10/23/2023 CBC WITH DIFFE RENTI AL/PL ATELE T RBC 4.83 x10e6 /uL 4.14-5 .80 Not Available [facility] ([facility]) [address] [facility], [place], [address], 10/23/2023 13:12:16 10/22/19 24 10/23/2023 CBC WITH DIFFE RENTI AL/PL ATELE T hemoglobin 15.5 g/dL 13.0-1 7.7 Not Available [facility] ([facility]) [address] [place], [address], 10/23/2023 13:12:16 10/22/19 24 10/23/2023 CBC WITH DIFFE RENTI AL/PL ATELE T hematocrit 45.8 % 37.5-5 1.0 Not Available [facility] ([facility]) [address] [facility], [place], [address], 10/23/2023 13:12:16 10/22/19 24 10/23/2023 CBC WITH DIFFE RENTI AL/PL ATELE T MCV 95 fL 79-97 Not Available [facility] ([facility]) [address] [facility], [place], [address], 10/23/2023 13:12:16 10/22/19 24 10/23/2023 CBC WITH DIFFE RENTI AL/PL ATELE T MCH 32.1 pg 26.6-3 3.0 Not Available [facility] ([facility]) [address] [facility], [place], [address], 10/23/2023 13:12:16 10/22/19 24 10/23/2023 CBC WITH DIFFE RENTI AL/PL ATELE T MCHC 33.8 g/dL 31.5-3 5.7 Not Available [facility] ([facility]) [address] [facility], [place], [address], 10/23/2023 13:12:16 10/22/19 24 10/23/2023 CBC WITH DIFFE RENTI AL/PL ATELE T RDW 12.3 % 11.6-1 5.4 Not Available [facility] ([facility]) [address] [place], [address], 10/23/2023 13:12:16 10/22/19 24 10/23/2023 CBC WITH DIFFE RENTI AL/PL ATELE T platelets 263 x10e3 /uL 150-45 0 Not Available [facility] ([facility]) [address] [place], [address], 10/23/2023 13:12:16 10/22/19 24 10/23/2023 CBC WITH DIFFE RENTI AL/PL ATELE T neutrophils 55 % notest ab. Not Available [facility] ([facility]) [address] [facility], [place], [address], 10/23/2023 13:12:16 10/22/19 24 10/23/2023 CBC WITH DIFFE RENTI AL/PL ATELE T lymphs 31 % notest ab. Not Available [facility] ([facility]) [address] [facility], [place], [address], 10/23/2023 13:12:16 10/22/19 24 10/23/2023 CBC WITH DIFFE RENTI AL/PL ATELE T monocytes 10 % notest ab. Not Available [facility] ([facility]) [address] [facility], [place], [address], 10/23/2023 13:12:16 10/22/19 24 10/23/2023 CBC WITH DIFFE RENTI AL/PL ATELE T eos 3 % notest ab. Not Available [facility] ([facility]) [address] [facility], [place], [address], 10/23/2023 13:12:16 10/22/19 24 10/23/2023 CBC WITH DIFFE RENTI AL/PL ATELE T basos 1 % notest ab. Not Available [facility] ([facility]) [address] [facility], [place], [address], 10/23/2023 13:12:16 10/22/19 24 10/23/2023 CBC WITH DIFFE RENTI AL/PL ATELE T neutrophils (absolute) 4.6 x10e3 /uL 1.4-7. 0 Not Available [facility] ([facility]) [address] [facility], [place], [address], 10/23/2023 13:12:16 10/22/19 24 10/23/2023 CBC WITH DIFFE RENTI AL/PL ATELE T lymphs (absolute) 2.6 x10e3 /uL 0.7-3. 1 Not Available [facility] ([facility]) [address] [facility], [place], [address], 10/23/2023 13:12:16 10/22/19 24 10/23/2023 CBC WITH DIFFE RENTI AL/PL ATELE T monocytes(ab solute) 0.8 x10e3 /uL 0.1-0. 9 Not Available [facility] ([facility]) [address] [facility], [place], [address], 10/23/2023 13:12:16 10/22/19 24 10/23/2023 CBC WITH DIFFE RENTI AL/PL ATELE T eos (absolute) 0.2 x10e3 /uL 0.0-0. 4 Not Available [facility] ([facility]) [address] [facility], [place], [address], 10/23/2023 13:12:16 10/22/19 24 10/23/2023 CBC WITH DIFFE RENTI AL/PL ATELE T baso (absolute) 0.1 x10e3 /uL 0.0-0. 2 Not Available [facility] ([facility]) [address] [facility], [place], [address], 10/23/2023 13:12:16 10/22/19 24 10/23/2023 CBC WITH DIFFE RENTI AL/PL ATELE T immature granulocytes 0 % notest ab. Not Available [facility] ([facility]) [address] [facility], [place], [address], 10/23/2023 13:12:16 10/22/19 24 10/23/2023 CBC WITH DIFFE RENTI AL/PL ATELE T immature grans (abs) 0.0 x10e3 /uL 0.0-0. 1 Not Available [facility] ([facility]) [address] [facility], [place], [address], 10/23/2023 13:12:16 10/22/19 24 10/23/2023 PROST ATE-S [...] t be inter prete d as absol kenisha evide nce of the prese nce or absen ce of lior connell disea se. Not Available [facility] ([facility]) [address] [facility], [place], [address], 10/23/2023 13:12:17 10/22/19 24 10/22/2023 XR, cervi polo spine No observ ation record ed. [facility] [address] [place], [address], 10/28/2023 10:50:42 03/24/20 24 03/24/2024 LDCT, chest , for lung cance r scree bob No observ ation record ed. [facility] [address] [place], [address], 04/07/2024 13:59:10 06/27/19 elect rocomid diogr am No observ ation record ed. [facility] In-Office Order Internal Use Only DO Not Attach Compendium DO Not Attach Compendium, Do Not Delete/merge, [id number] 06/26/2024 13:12:28 06/27/19 25 06/26/2024 elect ancelmo melgargr am No observ ation record ed. DIAZ In-Office Order Internal Use Only DO Not Attach Compendium DO Not Attach Compendium, Do Not Delete/merge, [id number] 06/26/2024 14:13:27 Result Notes None recorded. Problems Name Problem SNOMED Code Status Onset Date Resolution Date Notes Provider Name and Address Organization Details Recorded Time Hyperlipidemia 75789263 Active 2023 Adri London MD Attn: Jessicayves denise,[address] [facility], [place], [address], [place] [facility] 4 22:24:26 Chronic obstructive pulmonary disease 35702813 Active 2023 Adri London MD Attn: Jessicayves denise,[address] [facility], [place], [address], [place] [facility] 4 22:24:27 Peripheral arterial occlusive disease 476832342 Active 2023 Adri London MD Attn: Jessicayves denise,[address] [facility], [place], [address], [place] [facility] 4 22:24:28 Anxiety 85783520 Active 2023 Adri London MD Attn: Jessicayves denise,[address] [facility], [place], [address], [place] [facility] 4 22:24:30 Essential hypertension 67390258 Active 2023 Adri London MD Attn: Jessicayves denise,[address] [facility], [place], [address], [place] [facility] 4 22:24:43 Tobacco dependence syndrome 42651439 Active 2023 Adri London MD Attn: Mary camelia,[address] [facility], [place], [address], [place] [facility] 4 22:24:44 Screening for malignant neoplasm of prostate Active 2023 Rasta Schmidt [place] null, [place] [facility] 4 15:05:26 Neck pain 75227110 Active 2023 Rasta Schmidt [place] null, [place] [facility] 4 15:05:27 Problem Notes None recorded. Procedures Surgical History Date Name Laterality Status Provider Name and Address Organization Details Recorded Time Angioplasty With Stent completed Chloe Jeffers [place] [facility] 06/27/2023 15:47:14 Imaging Results Imaging Date Name Status LastModified by Organization Details LastModified Time 10/22/2023 XR, cervical spine completed [facility] [address] [place], [address], 10/28/2023 10:50:42 03/24/2024 LDCT, chest, for lung cancer screening completed [facility] [address] [place], [address], 04/07/2024 13:59:10 06/26/2024 electrocardiogram completed [facility] In-Offi ce Order Internal Use Only DO Not Attach Compendium DO Not Attach Compendium, Do Not Delete/merge, [id number] 06/26/2024 13:12:28 06/26/2024 electrocardiogram completed [facility] In-Offi ce Order Internal Use Only DO Not Attach Compendium DO Not Attach Compendium, Do Not Delete/merge, [id number] 06/26/2024 14:13:27 Procedure Notes None recorded. Medical Equipment None Reported. Allergies No known drug allergies Medications Name Sig Start Date Stop Date Status Note LastModified by Organization Details LastModified Time Prescriptio n - Prior Authorizati on Request active Not Available Not Available N ot Available doxycycline hyclate 100 mg capsule TAKE 1 CAPSULE BY MOUTH TWICE DAILY FOR 7 DAYS 10/21 completed Not Available Not Available Not Available atorvastati n 20 mg tablet TAKE 1 TABLET BY MOUTH ONCE DAILY active Not Available Not Available No t Available lisinopril 20 mg tablet Take 1 tablet twice a day by oral route. 2024 active Not Available Not Available Not Avai lable prednisone 20 mg tablet TAKE 2 TABLETS BY MOUTH ONCE DAILY FOR 7 DAYS 10/21 completed Not Available Not Available Not Available clopidogrel 75 mg tablet TAKE 1 TABLET BY MOUTH ONCE DAILY active Not Available Not Available No t Available tamsulosin 0.4 mg capsule TAKE 1 CAPSULE BY MOUTH ONCE DAILY AT BEDTIME 10/21 completed Not Available Not Available Not Available albuterol sulfate HFA 90 mcg/actuati on aerosol inhaler inhale 2 puffs every 4hrs by inhalatio n route 02/13 completed Not Available Not Available Not Available sertraline 50 mg tablet TAKE 1 TABLET BY MOUTH ONCE DAILY active Not Available Not Available No t Available Centrum Silver active Not Available Not Available [...] Address Organization Details Last Updated DateTime 4 02514.2 6 g 24.5 kg/m2 180.34 cm 96 % 96 % 72 /min 98 [degF] 18 /min 130 mm[Hg] 90 mm[Hg] Chloe Jeffers MA [facility] 4 15:49:54 Date Recorded Body height Body mass index (BMI) Body weight Heart rate Oxygen saturation Oxygen saturation in Arterial blood by Pulse oximetry Systolic blood pressure Diastolic blood pressure Systolic blood pressure Diastolic blood pressure Provider Name and Address Organization Details Last Updated DateTime 4 180.34 cm 25.2 kg/m2 52275.7 8 g 66 /min 96 % 96 % 152 mm[Hg] 82 mm[Hg] 140 mm[Hg] 82 mm[Hg] Dima Browning MA [facility] 4 15:14:36 Date Recorded Body height Body mass index (BMI) Body weight Heart rate Oxygen saturation Oxygen saturation in Arterial blood by Pulse oximetry Systolic blood pressure Diastolic blood pressure Provider Name and Address Organization Details Last Updated DateTime 4 180.34 cm 25.3 kg/m2 65551.3 7 g 68 /min 98 % 98 % 138 mm[Hg] 70 mm[Hg] Caroline Andrews [place] - [facility] 4 11:11:14 Date Recorded Body height Body mass index (BMI) Body weight Heart rate Oxygen saturation Oxygen saturation in Arterial blood by Pulse oximetry Systolic blood pressure Diastolic blood pressure Provider Name and Address Organization Details Last Updated DateTime 4 180.34 cm 25.4 kg/m2 62493.8 1 g 64 /min 97 % 97 % 136 mm[Hg] 64 mm[Hg] Eliza Nguyen MA [facility] 4 11:45:37 Date Recorded Pain severity - 0-10 verbal numeric rating [Score] - Reported Provider Name and Address Organization Details Last Updated DateTime 02/21/2024 0 Alexus Rod [facility] 02/21/2024 11:47:28 Date Recorded Body height Body mass index (BMI) Body weight Heart rate Oxygen saturation Oxygen saturation in Arterial blood by Pulse oximetry Systolic blood pressure Diastolic blood pressure Provider Name and Address Organization Details Last Updated DateTime 5 180.34 cm 25.5 kg/m2 28408.7 6 g 42 /min 96 % 96 % 164 mm[Hg] 96 mm[Hg] Kailee Gant MA [facility] 5 11:10:33 Date Recorded Heart rate Systolic blood pressure Diastolic blood pressure Provider Name and Address Organization Details Last Updated DateTime 06/26/2024 62 /min 140 mm[Hg] 72 mm[Hg] Caroline Andrews MA [facility] 06/26/2024 11:40:22 Social History Question Answer Notes LastModified by Organizat ion Details LastModified Time Tobacco Smoking Status Current Every Day Smoker Chloe Jeffers MA null, [facility] 06/27/2023 15:46:54 Do You Have An Advance [...] Or The Highest Degree You Have Received? 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 No Information not available 02/21/2024 In The Past 7 Days, How Many Days Did You Exercise? 0 No Exercise Regime But Patient Stays Active Information not available 02/21/2024 In The Past 7 Days, How Much Pain Have You Hanson? None Information not available 02/21/2024 In General, [...] Past 7 Days, How Often Have You Hanson Sleepy In The Daytime? Never Information not available 02/21/2024 # Alcohol Drinks Per Week 0 Information not available 02/21/2024 What Was The Date Of Your Most Recent Tobacco Screening? 06/26/2024 Information not available 06/26/2024 What Is Your Current Pack Years? 30ormorepack [...] Anxious, Or Unable To Sleep At Night)? [id number] Information not available 02/21/2024 Do You Use Any Illicit Or Recreational Drugs? No Information not available 06/27/2023 Do You Use Sunscreen Routinely? No Information not available 02/21/2024 Has Tobacco Cessation Counseling Been Provided? Yes Information not available 06/27/2023 On What Date Was Tobacco Cessation Counseling Provided? 06/26/2024 Information not available 06/26/2024 How Many Years Have You Smoked Tobacco? [...] Skin Problems N Anemia N Heart Attack (VT) N Diabetes N Anxiety Disorder Y Muscle, [...] Time Influenza, MDCK, quadrivalent, PF 0 completed Chloeher Jeffers [place], [place] [facility] 06/27/2023 15:48:25 COVID-19 vaccine, vector-nr, rS-Ad26, PF, 0.5 mL 1 completed Chloeher Jeff[place] [facility] 06/27/2023 15:48:25 COVID-19 vaccine, vector-nr, rS-Ad26, PF, 0.5 mL 1 completed Chloe Jeff[place] [facility] 06/27/2023 15:48:25 COVID-19, mRNA, LNP-S, bivalent, PF, 30 mcg/0.3 mL dose 2 completed Chloe [place] [facility] 06/27/2023 15:48:25 RSV, recombinant, protein subunit RSVpreF, adjuvant reconstituted, 0.5 mL, PF 3 completed Chloe Jeff[place] [facility] 06/27/2023 15:48:25 Influenza, split virus, quadrivalent, PF 2 completed Chloeher [place] [facility] 06/27/2023 15:48:25 Influenza, split virus, quadrivalent, PF 3 completed Chloe [place] [facility] 06/27/2023 15:48:25 Influenza, split virus, quadrivalent, PF 1 completed Chloe Z[place]ad [place] [facility] 06/27/2023 15:48:25 Influenza, split virus, quadrivalent, PF 8 completed [place]ad [place] [facility] 06/27/2023 15:48:25 Influenza, split virus, quadrivalent, PF 7 completed Chloeher [place] [facility] 06/27/2023 15:48:25 COVID-19, mRNA, LNP-S, PF, tashi-sucrose, 30 mcg/0.3 mL 4 completed Rasta Schmidt [place] null, [place] [facility] 02/14/2024 12:08:44 Influenza, high-dose, trivalent, PF 4 completed Rasta Schmidt [place] [facility] 02/14/2024 12:08:44 Pneumococcal conjugate PCV20, polysaccharide [id number] conjugate, adjuvant, PF 4 completed Adri London MD Attn: Accounting,[address] [place], [address], [facility] 10/22/2023 23:20:41 Past Encounters Encounter ID Performer Location Encounter Start Date Encounter Closed Date Diagnosis/Indication Diagnosis SNOMED-CT Code Diagnosis ICD10 Code Diagnosis Note [id number] MD Harvey Waldron (Adult Med) [address] [place] [phone] 06/27/2023 15:14:21 06/27/2023 16:24:33 Hyperlipidemia 44939722 E78.5 Chronic ob structive pulmonary disease 03631272 J44.9 Peripheral arterial occlusive disease 444919980 I73.9 Anxiety 51472332 F41.9 Essential hypertension 68732263 I10 Tobacco de pendence syndrome 43832281 F17.639 [id number] MD Harvey Waldron (Adult Med) [address] [place] [phone] 10/22/2023 13:54:44 10/22/2023 15:15:00 Lesion of right external ear canal 7985026888 216331 H61.91 Essential hypertension 36148731 I10 Neck pain 00851101 M54.2 Screening for malignant neoplasm of prostate 464932980 Z12.5 Administra tion of pneumococcal vaccine 23025094 Z23 Hyperlipidemia 78883064 E78.5 Chronic ob structive pulmonary disease 07912141 J44.9 Anxiety 04473251 F41.9 [id number] MD Harvey Waldron (Adult Med) [address] [place] [address] [id number] 0 02/14/2024 10:40:35 02/14/2024 12:07:56 Body mass index 25-29 - overweight 477909412 Z68.25 Overweight 725500557 E66 .3 Screening for malignant neoplasm of colon 275432297 Z12.11 Chronic ob structive pulmonary disease 02301054 J44.9 Anxiety 12379081 F41.9 Essential hypertension 42243925 I10 Hyperlipidemia 55964167 E78.5 Peripheral arterial occlusive disease 980468066 I73.9 [id number] MD Harvey Waldron (Adult Med) [address] [place] [address] [phone] 02/21/2024 11:26:31 02/21/2024 12:56:25 Adult health examination 986935327 Z00.00 Health Risk Assessment collected and reviewed Nicotine dependence 5629 4008 F17.420 [id number] MD Harvey Waldron (Adult Med) [address] [place] [address] [phone] 06/26/2024 10:49:01 06/26/2024 11:40:55 Essential hypertension 59164410 I10 Hypertensive disorder 38 022904 I10 Chronic ob structive pulmonary disease 98680146 J44.9 Peripheral arterial occlusive disease 745129727 I73.9 Hyperlipidemia 00225587 E78.5 Anxiety 32501577 F41.9 Tobacco de pendence syndrome 88616615 F17.200 Health Concerns Section Related Observation LastModified by Organization Detai ls LastModified Time None Recorded Concern Status LastModified by Organization Details LastModified Time None Recorded Advance Directives Directive N: Payers Encounter Date Sequence Insurance Name Policy Number Policy Auguste Covered Member ID Auguste Member ID Guarantor Name 06/27/2023 2 [place] 111 Vinny Kim [id number] Vinny Kim 06/27/2023 1 [place] [id number] Vinny Kim 10/22/2023 1 [place] [id number] Vinny Kim 10/22/2023 2 [place] 33A Vinny Kim [id number] Vinny Kim 02/14/2024 1 [place] [id number] Vinny Kim 02/14/2024 2 [place] 33A Vinny Quevedoi [id number] Vinny Spencer Judy 02/21/2024 1 [place] V[place] Kim [id number] Vinny Barraz[place]i 02/21/2024 2 [place] 33A Vinny Quevedoi [id number] Vinny Barrazaski 06/26/2024 1 [place] Vinny Quevedoi [id number] Vinny Barraz[place]i 06/26/2024 2 [place] 33A Vinny Quevedoi [id number] Vinny Spencer Judy Notes Date Note Type [...] stopping Adri London MD Attn: Accounting[address] [place], [address], [facility] 06/27/2023 22:27:18 10/22/2023 text/html Hyperlipidemia h e [...] trauma Adri London MD Attn: [address] [place], [address], [facility] 10/22/2023 23:22:39 02/14/2024 text/html peripheral arter ial [...] MD Attn: Accounting,[address], [place], [address], [facility] 02/15/2024 17:21:22 02/21/2024 text/html MAW 2Reported bypatient.Diet [...] home Adri London MD Attn: Accounting,[address], [place], [address], [facility] 02/21/2024 21:45:31 06/26/2024 text/html he is still smok ing no plans to quit hypertension no chest pain PND or orthopnea peripheral arterial disease he has not had any claudication anxiety has been up a little bit he has been diagnosed with prostate cancer and is going through some therapy with regards to the COPD no cough or wheezing but he continues to smoke Adri London MD Attn: Accounting,[address], [place], [address], [facility] 06/27/2024 15:34:07
--- OUTSIDE RECORDS SUMMARY | 2024-07-20 16:48 | XMS_ITS | Data Portability ---
Author Organization [facility], Main Office Address [address] [place] [address] Assessment Encounter Date Assessment Date Assessment LastModified by Organization Details LastModified Time 08/08/2022 08/08/2022 Smoking cessation highly recommended but he is not interested at this time chronic medical problems have been discussed blood work has been ordered sertraline 50 mg a day is been started follow-up in 6 weeks [email or web address] Not available 08/19/2022 14:41:05 10/04/2022 10/04/2022 Warned of the ill effects of tobacco which included but not limited to increased tumors of aerodigestive tract increase incidence of heart attack stroke and cancer that can lead to sudden or chronic medical illness. Continue current therapy. Blood work has been ordered. [email or web address] Not available 10/16/2022 22:08:11 03/27/2023 03/27/2023 Doxycycline him prednisone smoking cessation discussed and is imperative we discussed strategies but it does not sound like he is moving in that direction other diagnosis in assessment and plan have been discussed follow-up 4 months [email or web address] Not available 04/15/2023 21:24:33 Plan of Treatment Reminders Order Date Submit Date Provider Last Modified By Organization Details Last Modified Time Details Appointments None recorded. Lab CBC w/ auto diff 2022 023 [facility] (Lab), [address] [place], [address], 12:43:32 CMP, serum or plasma 2022 023 [facility] (Lab), [address] [place], [address], 3 14:36:28 lipid panel, serum 2022 023 [facility] (Lab), [address] [place], [address], 3 14:36:30 CBC w/ auto diff 2022 023 [facility] (Lab), [address] [place], [address], 3 12:21:03 lipid panel, serum 2022 023 [facility] (Lab), [address] [place], [address], 3 09:18:34 CMP, serum or plasma 2022 023 [facility] (Lab), [address] [place], [address], 3 12:30:18 Referral None recorded. Procedures None recorded. Surgeries None recorded. Imaging None recorded. Medication Orders doxycycline hyclate 100 mg capsule [address] [facility], [address] [place] [address], [address], 3 17:48:12 prednisone 20 mg tablet [address] [facility], [address] [place] [address], [address], 4 21:23:04 sertraline 50 mg tablet [email or web address] [facility], [address] [place] [address], [address], 3 16:09:40 Patient TargetsNo targets recorded. Patient InstructionsNo instructions recorded. Reason for Referral None Reported. Results Created Date Observation Date Name Description Value Unit Range Abnormal Flag Note LastModifiedBy Organization Detail LastModifiedTime 04/05/20 22 04/05/2022 CBC/C OMPLE TE BLD COUNT W/DIF F white blood cells 7.0 x10'3 /uL 4.2-10 .8 Not Available [facility] (Lab) [address] [place], [address], 04/05/2022 14:27:56 04/05/20 22 04/05/2022 CBC/C OMPLE TE BLD COUNT W/DIF F red blood cells 4.95 x10'6 /uL 4.10-5 .80 Not Available [facility] (Lab) [address] [place], [address], 04/05/2022 14:27:56 04/05/20 22 04/05/2022 CBC/C OMPLE TE BLD COUNT W/DIF F hemoglobin 15.6 g/dL 13.2-1 7.0 Not Available [facility] (Lab) [address] [place], [address], 04/05/2022 14:27:56 04/05/20 22 04/05/2022 CBC/C OMPLE TE BLD COUNT W/DIF F hematocrit 47.6 % 39.3-5 0.0 Not Available [facility] (Lab) [address] [place], [address], 04/05/2022 14:27:56 04/05/20 22 04/05/2022 CBC/C OMPLE TE BLD COUNT W/DIF F mean red cell volume 96.2 fL 80.0-9 7.0 Not Available [facility] (Lab) [address] [place], [address], 04/05/2022 14:27:56 04/05/20 22 04/05/2022 CBC/C OMPLE TE BLD COUNT W/DIF F mean red cell hemoglobin 31.5 pg 27.0-3 3.0 Not Available [facility] (Lab) [address] [place], [address], 04/05/2022 14:27:56 04/05/20 22 04/05/2022 CBC/C OMPLE TE BLD COUNT W/DIF F mean RBC HGB concentratio n 32.8 g/dL 31.0-3 6.0 Not Available [facility] (Lab) [address] [place], [address], 04/05/2022 14:27:56 04/05/20 22 04/05/2022 CBC/C OMPLE TE BLD COUNT W/DIF F red cell distribution width 13.2 % 11.8-1 5.5 Not Available [facility] (Lab) [address] [place], [address], 04/05/2022 14:27:56 04/05/20 22 04/05/2022 CBC/C OMPLE TE BLD COUNT W/DIF F platelets 256 x10'3 /uL 150-40 0 Not Available [facility] (Lab) [address] [facility] [place] [place], [address], 04/05/2022 14:27:56 04/05/20 22 04/05/2022 CBC/C OMPLE TE BLD COUNT W/DIF F mean platelet volume 9.6 fL 9.0-12 .4 Not Available [facility] (Lab) [address] [place], [address], 04/05/2022 14:27:56 04/05/20 22 04/05/2022 CBC/C OMPLE TE BLD COUNT W/DIF F neutrophils 57.8 % 39.0-7 2.0 Not Available [facility] (Lab) [address] [facility] [place] [place], [address], 04/05/2022 14:27:56 04/05/20 22 04/05/2022 CBC/C OMPLE TE BLD COUNT W/DIF F lymphocytes 30.8 % 16.0-4 7.0 Not Available [facility] (Lab) [address] [place], [address], 04/05/2022 14:27:56 04/05/20 22 04/05/2022 CBC/C OMPLE TE BLD COUNT W/DIF F monocytes 8.9 % 5.0-12 .0 Not Available [facility] (Lab) [address] [place], [address], 04/05/2022 14:27:56 04/05/20 22 04/05/2022 CBC/C OMPLE TE BLD COUNT W/DIF F eosinophils 1.4 % 1.0-7. 0 Not Available [facility] (Lab) [address] [place], [address], 04/05/2022 14:27:56 04/05/20 22 04/05/2022 CBC/C OMPLE TE BLD COUNT W/DIF F basophils 1.0 % 0.0-2. 0 Not Available [facility] (Lab) [address] [place], [address], 04/05/2022 14:27:56 04/05/20 22 04/05/2022 CBC/C OMPLE TE BLD COUNT W/DIF F immature granulocytes 0.1 % 0.00-0 .50 Not Available [facility] (Lab) [address] [place], [address], 04/05/2022 14:27:56 04/05/20 22 04/05/2022 CBC/C OMPLE TE BLD COUNT W/DIF F neutrophils, absolute count 4.01 x10'3 /uL 1.5-8. 0 Not Available [facility] (Lab) [address] [place], [address], 04/05/2022 14:27:56 04/05/20 22 04/05/2022 CBC/C OMPLE TE BLD COUNT W/DIF F lymphocytes, absolute count 2.14 x10'3 /uL 1.07-3 .43 Not Available [facility] (Lab) [address] [place], [address], 04/05/2022 14:27:56 04/05/20 22 04/05/2022 CBC/C OMPLE TE BLD COUNT W/DIF F monocytes, absolute count 0.62 x10'3 /uL 0.29-0 .99 Not Available [facility] (Lab) [address] [place], [address], 04/05/2022 14:27:56 04/05/20 22 04/05/2022 CBC/C OMPLE TE BLD COUNT W/DIF F eosinophils, absolute count 0.10 x10'3 /uL 0.02-0 .53 Not Available [facility] (Lab) [address] [place], [address], 04/05/2022 14:27:56 04/05/20 22 04/05/2022 CBC/C OMPLE TE BLD COUNT W/DIF F basophils, absolute count 0.07 x10'3 /uL 0.01-0 .08 Not Available [facility] (Lab) [address] [place], [address], 04/05/2022 14:27:56 04/05/20 22 04/05/2022 CBC/C OMPLE TE BLD COUNT W/DIF F immature granulocytes ,absolute 0.01 x10'3 /uL 0.00-0 .05 Not Available [facility] (Lab) [address] [place], [address], 04/05/2022 14:27:56 04/05/20 22 04/05/2022 CBC/C OMPLE TE BLD COUNT W/DIF F nucleated red blood cells 0.0 % -0 Not Available [facility] (Lab) [address] [place], [address], 04/05/2022 14:27:56 04/05/20 22 04/05/2022 CBC/C OMPLE TE BLD COUNT W/DIF F NRBC# 0.00 x10'3 /uL Not Available [facility] (Lab) [address] [place], [address], 04/05/2022 14:27:56 04/05/20 22 04/05/2022 PSA SCREE N PSA medicare screen 3.11 NG/mL 0.00-4 .00 Not Available [facility] (Lab) [address] [place], [address], 04/05/2022 14:03:13 04/05/20 22 04/05/2022 COMPR EHENS SHELLY METAB OLIC PANEL sodium 139 mmol/ L 137-14 5 Not Available [facility] (Lab) [address] [place], [address], 04/05/2022 13:45:17 04/05/20 22 04/05/2022 COMPR EHENS SHELLY METAB OLIC PANEL potassium 4.4 mmol/ L 3.5-5. 1 Not Available [facility] (Lab) [address] [place], [address], 04/05/2022 13:45:17 04/05/20 22 04/05/2022 COMPR EHENS SHELLY METAB OLIC PANEL chloride 105 mmol/ L 98-107 Not Available [facility] (Lab) [address] [place], [address], 04/05/2022 13:45:17 04/05/20 22 04/05/2022 COMPR EHENS SHELLY METAB OLIC PANEL carbon dioxide 27 mmol/ L 22-30 Not Available [facility] (Lab) [address] [place], [address], 04/05/2022 13:45:17 04/05/20 22 04/05/2022 COMPR EHENS SHELLY METAB OLIC PANEL anion gap 11.4 mmol/ L 14-22 low Not Available [facility] (Lab) [address] [place], [address], 04/05/2022 13:45:17 04/05/20 22 04/05/2022 COMPR EHENS SHELLY METAB OLIC PANEL glucose 93 mg/dL 70-99 Not Available [facility] (Lab) [address] [place], [address], 04/05/2022 13:45:17 04/05/20 22 04/05/2022 COMPR EHENS SHELLY METAB OLIC PANEL BUN 15 mg/dL 8-19 Not Available [facility] (Lab) [address] [place], [address], 04/05/2022 13:45:17 04/05/20 22 04/05/2022 COMPR EHENS SHELLY METAB OLIC PANEL creatinine 0.97 mg/dL 0.66-1 .25 Not Available [facility] (Lab) [address] [place], [address], 04/05/2022 13:45:17 04/05/20 22 04/05/2022 COMPR EHENS SHELLY METAB OLIC PANEL GFR >60 Refer ence Range : [place] ge GFR Healt hy Adult : >60 [...] calcu lator is avail able on the [facility] websi te: [email or web address] :[email or web address] ofess ional s/kdo qi/gf r_cal culat or Not Available [facility] (Lab) [address] [place], [address], 04/05/2022 13:45:17 04/05/20 22 04/05/2022 COMPR EHENS SHELLY METAB OLIC PANEL alkaline phosphatase 81 U/L 38-126 Not Available [facility] (Lab) [address] [place], [address], 04/05/2022 13:45:17 04/05/20 22 04/05/2022 COMPR EHENS SHELLY METAB OLIC PANEL alanine aminotransfe rase 28 U/L 0-50 Not Available [facility] (Lab) [address] [place], [address], 04/05/2022 13:45:17 04/05/20 22 04/05/2022 COMPR EHENS SHELLY METAB OLIC PANEL aspartate aminotransfe rase 31 U/L 15-46 Not Available [facility] (Lab) [address] [place], [address], 04/05/2022 13:45:17 04/05/20 22 04/05/2022 COMPR EHENS SHELLY METAB OLIC PANEL bilirubin, total 0.80 mg/dL 0.20-1 .30 Not Available [facility] (Lab) [address] [place], [address], 04/05/2022 13:45:17 04/05/20 22 04/05/2022 COMPR EHENS SHELLY METAB OLIC PANEL calcium 9.9 mg/dL 8.4-10 .2 Not Available [facility] (Lab) [address] [place], [address], 04/05/2022 13:45:17 04/05/20 22 04/05/2022 COMPR EHENS SHELLY METAB OLIC PANEL total protein 7.2 g/dL 6.3-8. 2 Not Available [facility] (Lab) [address] [facility] [place] [place], [address], 04/05/2022 13:45:17 04/05/20 22 04/05/2022 COMPR EHENS SHELLY METAB OLIC PANEL albumin 4.5 g/dL 3.0-4. 4 high Not Available [facility] (Lab) [address] [place], [address], 04/05/2022 13:45:17 04/05/20 22 04/05/2022 COMPR EHENS SHELLY METAB OLIC PANEL globulin 2.7 g/dL 2.6-4. 2 Not Available [facility] (Lab) [address] [place], [address], 04/05/2022 13:45:17 04/05/20 22 04/05/2022 COMPR EHENS SHELLY METAB OLIC PANEL A/G ratio 1.7 ratio 1.0-2. 0 Not Available [facility] (Lab) [address] [place], [address], 04/05/2022 13:45:17 04/05/20 22 04/05/2022 LIPID PANEL cholesterol 165 mg/dL 140-19 9 [facility] MONICA NSUS RECOM MENDA TION FOR MIRTA STERO L: ADULT CHILD LOW RISK: <200 <170 BORDE RLINE : <200- 239 ----- HIGH RISK: >240 >200 Not Available [facility] (Lab) [address] [place], [address], 04/05/2022 13:45:06 04/05/20 22 04/05/2022 LIPID PANEL triglyceride s 73 mg/dL 0-150 [facility] MONICA NSUS REPOR T RECOM MENDA TION FOR TRIGL YCERI AMARJIT: ADULT CHILD LOW RISK: <150 ----- BODER LINE: 150-1 99 ----- HIGH RISK: >200 ----- Not Available [facility] (Lab) [address] [place], [address], 04/05/2022 13:45:06 04/05/20 22 04/05/2022 LIPID PANEL HDL cholesterol 57 mg/dL 40- Not Available [facility] (Lab) [address] [place], [address], 04/05/2022 13:45:06 04/05/20 22 04/05/2022 LIPID PANEL [...] WILL NOT BE REPOR LISA. Not Available [facility] (Lab) [address] [place], [address], 04/05/2022 13:45:06 04/05/20 22 04/05/2022 URINE MICRO SCOPI C EXAM/ IRIS white blood cells 0-8 /i??h pfi?? 0-8 Not Available [facility] (Lab) [address] [place], [address], 04/05/2022 13:33:21 04/05/20 22 04/05/2022 URINE MICRO SCOPI C EXAM/ IRIS red blood cells 0-4 /i??h pfi?? 0-4 Not Available [facility] (Lab) [address] [place], [address], 04/05/2022 13:33:21 04/05/20 22 04/05/2022 URINE MICRO SCOPI C EXAM/ IRIS bacteria occasi onal abnormal Not Available [facility] (Lab) [address] [place], [address], 04/05/2022 13:33:21 04/05/20 22 04/05/2022 URINE MICRO SCOPI C EXAM/ IRIS mucous occasi onal /i??l pfi?? abnormal Not Available [facility] (Lab) [address] [place], [address], 04/05/2022 13:33:21 04/05/20 22 04/05/2022 URINE MICRO SCOPI C EXAM/ IRIS squamous epithelial none /i??l pfi?? Not Available [facility] (Lab) [address] [place], [address], 04/05/2022 13:33:21 04/05/20 22 04/05/2022 URINE MICRO SCOPI C EXAM/ IRIS sperm presen t /i??h pfi?? abnormal Not Available [facility] (Lab) [address] [place], [address], 04/05/2022 13:33:21 05/11/19 23 05/11/2022 urina lysis , dipst ick Leukocytes (reference range: negative kayla/ l) Negati ve Not Available [facility] [place] [address] [facility], [address], [address], 05/11/2022 14:21:17 05/11/19 23 05/11/2022 urina lysis , dipst ick Nitrite (reference rage: negative mg/dl) negati ve Not Available [facility] [address] [place] [address], [address], [address], 05/11/2022 14:21:17 05/11/19 23 05/11/2022 urina lysis , dipst ick Urobilinogen (reference range: 0.2-1 mg/dl) 0.2 Not Available [place] [address], [place], [address], 05/11/2022 14:21:17 05/11/19 23 05/11/2022 urina lysis , dipst ick Protein (reference range: negative mg/dl) Negati ve Not Available [address], [address], 05/11/2022 14:21:17 05/11/19 23 05/11/2022 urina lysis , dipst ick pH (reference range: 5-7) 6.0 Not Available [address], [address], 05/11/2022 14:21:17 05/11/19 23 05/11/2022 urina lysis , dipst ick Blood (reference range: negative Eilel/ l) Negati ve Not Available [place] [address], [place], [address], 05/11/2022 14:21:17 05/11/19 23 05/11/2022 urina lysis , dipst ick Specific [place] (reference range: 1.005-1.030) 1.005 Not Available [address], [address], 05/11/2022 14:21:17 05/11/19 23 05/11/2022 urina lysis , dipst ick Ketone (reference range: negative mg/dl) Negati ve Not Available [address] [address], [place], [address], 05/11/2022 14:21:17 05/11/19 23 05/11/2022 urina lysis , dipst ick Bilirubin (reference range: negative mg/dl) Negati ve Not Available [address], [address], 05/11/2022 14:21:17 05/11/19 23 05/11/2022 urina lysis , dipst ick Glucose (reference range: negative mg/dl) Negati ve Not Available [address], [place] [address], [place], [address], 05/11/2022 14:21:17 05/11/19 23 05/11/2022 urina lysis , dipst ick Appearance Clear Not Available [address] [address], [place], [address], 05/11/2022 14:21:17 05/11/19 23 05/11/2022 urina lysis , dipst ick Color Pale Yellow Not Available [address] [address], [place], [address], 05/11/2022 14:21:17 08/09/19 23 08/08/2022 CBC/C OMPLE TE BLD COUNT W/DIF F white blood cells 6.1 x10'3 /uL 4.2-10 .8 Not Available [facility] (Lab) [address] [place] [address], [address], 08/08/2022 12:21:03 08/09/19 23 08/08/2022 CBC/C OMPLE TE BLD COUNT W/DIF F red blood cells 4.83 x10'6 /uL 4.10-5 .80 Not Available [facility] (Lab) [address] [place], [address], 08/08/2022 12:21:03 08/09/19 23 08/08/2022 CBC/C OMPLE TE BLD COUNT W/DIF F hemoglobin 15.2 g/dL 13.2-1 7.0 Not Available [facility] (Lab) [address] [facility] [place] [place], [address], 08/08/2022 12:21:03 08/09/19 23 08/08/2022 CBC/C OMPLE TE BLD COUNT W/DIF F hematocrit 46.3 % 39.3-5 0.0 Not Available [facility] (Lab) [address] [place], [address], 08/08/2022 12:21:03 08/09/19 23 08/08/2022 CBC/C OMPLE TE BLD COUNT W/DIF F mean red cell volume 95.9 fL 80.0-9 7.0 Not Available [facility] (Lab) [address] [place], [address], 08/08/2022 12:21:03 08/09/19 23 08/08/2022 CBC/C OMPLE TE BLD COUNT W/DIF F mean red cell hemoglobin 31.5 pg 27.0-3 3.0 Not Available [facility] (Lab) [address] [place], [address], 08/08/2022 12:21:03 08/09/19 23 08/08/2022 CBC/C OMPLE TE BLD COUNT W/DIF F mean RBC HGB concentratio n 32.8 g/dL 31.0-3 6.0 Not Available [facility] (Lab) [address] [place], [address], 08/08/2022 12:21:03 08/09/19 23 08/08/2022 CBC/C OMPLE TE BLD COUNT W/DIF F red cell distribution width 13.1 % 11.8-1 5.5 Not Available [facility] (Lab) [address] [place], [address], 08/08/2022 12:21:03 08/09/19 23 08/08/2022 CBC/C OMPLE TE BLD COUNT W/DIF F platelets 242 x10'3 /uL 150-40 0 Not Available [facility] (Lab) [address] [place], [address], 08/08/2022 12:21:03 08/09/19 23 08/08/2022 CBC/C OMPLE TE BLD COUNT W/DIF F mean platelet volume 9.2 fL 9.0-12 .4 Not Available [facility] (Lab) [address] [place], [address], 08/08/2022 12:21:03 08/09/19 23 08/08/2022 CBC/C OMPLE TE BLD COUNT W/DIF F neutrophils 52.7 % 39.0-7 2.0 Not Available [facility] (Lab) [address] [place], [address], 08/08/2022 12:21:03 08/09/19 23 08/08/2022 CBC/C OMPLE TE BLD COUNT W/DIF F lymphocytes 34.4 % 16.0-4 7.0 Not Available [facility] (Lab) [address] [place], [address], 08/08/2022 12:21:03 08/09/19 23 08/08/2022 CBC/C OMPLE TE BLD COUNT W/DIF F monocytes 8.9 % 5.0-12 .0 Not Available [facility] (Lab) [address] [place], [address], 08/08/2022 12:21:03 08/09/19 23 08/08/2022 CBC/C OMPLE TE BLD COUNT W/DIF F eosinophils 2.8 % 1.0-7. 0 Not Available [facility] (Lab) [address] [place], [address], 08/08/2022 12:21:03 08/09/19 23 08/08/2022 CBC/C OMPLE TE BLD COUNT W/DIF F basophils 1.0 % 0.0-2. 0 Not Available [facility] (Lab) [address] [place], [address], 08/08/2022 12:21:03 08/09/1908/08/2022 CBC/C OMPLE TE BLD COUNT W/DIF F immature granulocytes 0.2 % 0.00-0 .50 Not Available [facility] (Lab) [address] [place], [address], 08/08/2022 12:21:03 08/09/19 23 08/08/2022 CBC/C OMPLE TE BLD COUNT W/DIF F neutrophils, absolute count 3.22 x10'3 /uL 1.5-8. 0 Not Available [facility] (Lab) [address] [place], [address], 08/08/2022 12:21:03 08/09/19 23 08/08/2022 CBC/C OMPLE TE BLD COUNT W/DIF F lymphocytes, absolute count 2.10 x10'3 /uL 1.07-3 .43 Not Available [facility] (Lab) [address] [place], [address], 08/08/2022 12:21:03 08/09/19 23 08/08/2022 CBC/C OMPLE TE BLD COUNT W/DIF F monocytes, absolute count 0.54 x10'3 /uL 0.29-0 .99 Not Available [facility] (Lab) [address] [place], [address], 08/08/2022 12:21:03 04/26/20 23 08/08/2022 CBC/C OMPLE TE BLD COUNT W/DIF F eosinophils, absolute count 0.17 x10'3 /uL 0.02-0 .53 Not Available [facility] (Lab) [address] [place], [address], 08/08/2022 12:21:03 08/09/19 23 08/08/2022 CBC/C OMPLE TE BLD COUNT W/DIF F basophils, absolute count 0.06 x10'3 /uL 0.01-0 .08 Not Available [facility] (Lab) [address] [place], [address], 08/08/2022 12:21:03 08/09/19 23 08/08/2022 CBC/C OMPLE TE BLD COUNT W/DIF F immature granulocytes ,absolute 0.01 x10'3 /uL 0.00-0 .05 Not Available [facility] (Lab) [address] [place], [address], 08/08/2022 12:21:03 08/09/19 23 08/08/2022 CBC/C OMPLE TE BLD COUNT W/DIF F nucleated red blood cells 0.0 % -0 Not Available [facility] (Lab) [address] [place], [address], 08/08/2022 12:21:03 08/09/19 23 08/08/2022 CBC/C OMPLE TE BLD COUNT W/DIF F NRBC# 0.00 x10'3 /uL Not Available [facility] (Lab) [address] [place], [address], 08/08/2022 12:21:03 08/09/19 23 08/08/2022 COMPR EHENS SHELLY METAB OLIC PANEL sodium 137 mmol/ L 137-14 5 Not Available [facility] (Lab) [address] [place], [address], 08/08/2022 12:30:18 08/09/19 23 08/08/2022 COMPR EHENS SHELLY METAB OLIC PANEL potassium 4.2 mmol/ L 3.5-5. 1 Not Available [facility] (Lab) [address] [place], [address], 08/08/2022 12:30:18 08/09/19 23 08/08/2022 COMPR EHENS SHELLY METAB OLIC PANEL chloride 105 mmol/ L 98-107 Not Available [facility] (Lab) [address] [place], [address], 08/08/2022 12:30:18 08/09/19 23 08/08/2022 COMPR EHENS SHELLY METAB OLIC PANEL carbon dioxide 29 mmol/ L 22-30 Not Available [facility] (Lab) [address] [place], [address], 08/08/2022 12:30:18 08/09/19 23 08/08/2022 COMPR EHENS SHELLY METAB OLIC PANEL anion gap 7.2 mmol/ L 14-22 low Not Available [facility] (Lab) [address] [place], [address], 08/08/2022 12:30:18 08/09/19 23 08/08/2022 COMPR EHENS SHELLY METAB OLIC PANEL glucose 92 mg/dL 70-99 Not Available [facility] (Lab) [address] [place], [address], 08/08/2022 12:30:18 08/09/19 23 08/08/2022 COMPR EHENS SHELLY METAB OLIC PANEL BUN 18 mg/dL 8-19 Not Available [facility] (Lab) [address] [place], [address], 08/08/2022 12:30:18 08/09/19 23 08/08/2022 COMPR EHENS SHELLY METAB OLIC PANEL creatinine 0.97 mg/dL 0.66-1 .25 Not Available [facility] (Lab) [address] [place], [address], 08/08/2022 12:30:18 08/09/19 23 08/08/2022 COMPR EHENS SHELLY METAB OLIC PANEL GFR >60 Refer ence Range : [place] ge GFR Healt hy Adult : >60 [...] calcu lator is avail able on the [facility] websi te: [email or web address] :[email or web address] ofess ional s/kdo qi/gf r_cal culat or Not Available [facility] (Lab) [address] [place], [address], 08/08/2022 12:30:18 08/09/1908/08/2022 COMPR EHENS SHELLY METAB OLIC PANEL alkaline phosphatase 81 U/L 38-126 Not Available [facility] (Lab) [address] [place], [address], 08/08/2022 12:30:18 08/09/19 23 08/08/2022 COMPR EHENS SHELLY METAB OLIC PANEL alanine aminotransfe rase 22 U/L 0-50 Not Available [facility] (Lab) [address] [place], [address], 08/08/2022 12:30:18 08/09/19 23 08/08/2022 COMPR EHENS SHELLY METAB OLIC PANEL aspartate aminotransfe rase 25 U/L 15-46 Not Available [facility] (Lab) [address] [place], [address], 08/08/2022 12:30:18 08/09/19 23 08/08/2022 COMPR EHENS SHELLY METAB OLIC PANEL bilirubin, total 0.50 mg/dL 0.20-1 .30 Not Available [facility] (Lab) [address] [place], [address], 08/08/2022 12:30:18 08/09/19 23 08/08/2022 COMPR EHENS SHELLY METAB OLIC PANEL calcium 9.7 mg/dL 8.4-10 .2 Not Available [facility] (Lab) [address] [place], [address], 08/08/2022 12:30:18 08/09/19 23 08/08/2022 COMPR EHENS SHELLY METAB OLIC PANEL total protein 7.0 g/dL 6.3-8. 2 Not Available [facility] (Lab) [address] [place], [address], 08/08/2022 12:30:18 08/09/19 23 08/08/2022 COMPR EHENS SHELLY METAB OLIC PANEL albumin 4.1 g/dL 3.0-4. 4 Not Available [facility] (Lab) [address] [place], [address], 08/08/2022 12:30:18 08/09/19 23 08/08/2022 COMPR EHENS SHELLY METAB OLIC PANEL globulin 2.9 g/dL 2.6-4. 2 Not Available [facility] (Lab) [address] [place], [address], 08/08/2022 12:30:18 08/09/19 23 08/08/2022 COMPR EHENS SHELLY METAB OLIC PANEL A/G ratio 1.4 ratio 1.0-2. 0 Not Available [facility] (Lab) [address] [place], [address], 08/08/2022 12:30:18 03/20/20 23 03/20/2023 CBC/C OMPLE TE BLD COUNT W/DIF F white blood cells 5.4 x10'3 /uL 4.2-10 .8 Not Available [facility] (Lab) [address] [place], [address], 03/20/2023 12:43:32 03/20/20 23 03/20/2023 CBC/C OMPLE TE BLD COUNT W/DIF F red blood cells 4.54 x10'6 /uL 4.10-5 .80 Not Available [facility] (Lab) [address] [place], [address], 03/20/2023 12:43:32 03/20/20 23 03/20/2023 CBC/C OMPLE TE BLD COUNT W/DIF F hemoglobin 14.9 g/dL 13.2-1 7.0 Not Available [facility] (Lab) [address] [place], [address], 03/20/2023 12:43:32 03/20/20 23 03/20/2023 CBC/C OMPLE TE BLD COUNT W/DIF F hematocrit 44.2 % 39.3-5 0.0 Not Available [facility] (Lab) [address] [place], [address], 03/20/2023 12:43:32 03/20/20 23 03/20/2023 CBC/C OMPLE TE BLD COUNT W/DIF F mean red cell volume 97.4 fL 80.0-9 7.0 high Not Available [facility] (Lab) [address] [place], [address], 03/20/2023 12:43:32 03/20/20 23 03/20/2023 CBC/C OMPLE TE BLD COUNT W/DIF F mean red cell hemoglobin 32.8 pg 27.0-3 3.0 Not Available [facility] (Lab) [address] [place], [address], 03/20/2023 12:43:32 03/20/20 23 03/20/2023 CBC/C OMPLE TE BLD COUNT W/DIF F mean RBC HGB concentratio n 33.7 g/dL 31.0-3 6.0 Not Available [facility] (Lab) [address] [place], [address], 03/20/2023 12:43:32 03/20/20 23 03/20/2023 CBC/C OMPLE TE BLD COUNT W/DIF F red cell distribution width 12.8 % 11.8-1 5.5 Not Available [facility] (Lab) [address] [place], [address], 03/20/2023 12:43:32 03/20/20 23 03/20/2023 CBC/C OMPLE TE BLD COUNT W/DIF F platelets 229 x10'3 /uL 150-40 0 Not Available [facility] (Lab) [address] [place], [address], 03/20/2023 12:43:32 03/20/20 23 03/20/2023 CBC/C OMPLE TE BLD COUNT W/DIF F mean platelet volume 9.7 fL 9.0-12 .4 Not Available [facility] (Lab) [address] [place], [address], 03/20/2023 12:43:32 03/20/2003/20/2023 CBC/C OMPLE TE BLD COUNT W/DIF F neutrophils 46.6 % 39.0-7 2.0 Not Available [facility] (Lab) [address] [place], [address], 03/20/2023 12:43:32 03/20/20 23 03/20/2023 CBC/C OMPLE TE BLD COUNT W/DIF F lymphocytes 37.5 % 16.0-4 7.0 Not Available [facility] (Lab) [address] [place], [address], 03/20/2023 12:43:32 03/20/2003/20/2023 CBC/C OMPLE TE BLD COUNT W/DIF F monocytes 10.7 % 5.0-12 .0 Not Available [facility] (Lab) [address] [place], [address], 03/20/2023 12:43:32 03/20/2003/20/2023 CBC/C OMPLE TE BLD COUNT W/DIF F eosinophils 3.9 % 1.0-7. 0 Not Available [facility] (Lab) [address] [place], [address], 03/20/2023 12:43:32 03/20/20 23 03/20/2023 CBC/C OMPLE TE BLD COUNT W/DIF F basophils 1.1 % 0.0-2. 0 Not Available [facility] (Lab) [address] [place], [address], 03/20/2023 12:43:32 03/20/2003/20/2023 CBC/C OMPLE TE BLD COUNT W/DIF F immature granulocytes 0.2 % 0.00-0 .50 Not Available [facility] (Lab) [address] [place], [address], 03/20/2023 12:43:32 03/20/20 23 03/20/2023 CBC/C OMPLE TE BLD COUNT W/DIF F neutrophils, absolute count 2.54 x10'3 /uL 1.5-8. 0 Not Available [facility] (Lab) [address] [place], [address], 03/20/2023 12:43:32 03/20/20 23 03/20/2023 CBC/C OMPLE TE BLD COUNT W/DIF F lymphocytes, absolute count 2.04 x10'3 /uL 1.07-3 .43 Not Available [facility] (Lab) [address] [place], [address], 03/20/2023 12:43:32 03/20/20 23 03/20/2023 CBC/C OMPLE TE BLD COUNT W/DIF F monocytes, absolute count 0.58 x10'3 /uL 0.29-0 .99 Not Available [facility] (Lab) [address] [place], [address], 03/20/2023 12:43:32 03/20/20 23 03/20/2023 CBC/C OMPLE TE BLD COUNT W/DIF F eosinophils, absolute count 0.21 x10'3 /uL 0.02-0 .53 Not Available [facility] (Lab) [address] [place], [address], 03/20/2023 12:43:32 03/20/20 23 03/20/2023 CBC/C OMPLE TE BLD COUNT W/DIF F basophils, absolute count 0.06 x10'3 /uL 0.01-0 .08 Not Available [facility] (Lab) [address] [place], [address], 03/20/2023 12:43:32 03/20/20 23 03/20/2023 CBC/C OMPLE TE BLD COUNT W/DIF F immature granulocytes ,absolute 0.01 x10'3 /uL 0.00-0 .05 Not Available [facility] (Lab) [address] [place], [address], 03/20/2023 12:43:32 03/20/20 23 03/20/2023 CBC/C OMPLE TE BLD COUNT W/DIF F nucleated red blood cells 0.0 % -0 Not Available [facility] (Lab) [address] [place], [address], 03/20/2023 12:43:32 03/20/20 23 03/20/2023 CBC/C OMPLE TE BLD COUNT W/DIF F NRBC# 0.00 x10'3 /uL Not Available [facility] (Lab) [address] [place], [address], 03/20/2023 12:43:32 03/20/20 23 03/20/2023 COMPR EHENS SHELLY METAB OLIC PANEL sodium 137 mmol/ L 137-14 5 Not Available [facility] (Lab) [address] [place], [address], 03/20/2023 14:36:28 03/20/20 23 03/20/2023 COMPR EHENS SHELLY METAB OLIC PANEL potassium 4.4 mmol/ L 3.5-5. 1 Not Available [facility] (Lab) [address] [place], [address], 03/20/2023 14:36:28 03/20/20 23 03/20/2023 COMPR EHENS SHELLY METAB OLIC PANEL chloride 106 mmol/ L 98-107 Not Available [facility] (Lab) [address] [place], [address], 03/20/2023 14:36:28 03/20/20 23 03/20/2023 COMPR EHENS SHELLY METAB OLIC PANEL carbon dioxide 27 mmol/ L 22-30 Not Available [facility] (Lab) [address] [place], [address], 03/20/2023 14:36:28 03/20/20 23 03/20/2023 COMPR EHENS SHELLY METAB OLIC PANEL anion gap 8.4 mmol/ L 14-22 low Not Available [facility] (Lab) [address] [place], [address], 03/20/2023 14:36:28 03/20/20 23 03/20/2023 COMPR EHENS SHELLY METAB OLIC PANEL glucose 100 mg/dL 70-99 high Not Available [facility] (Lab) [address] [place], [address], 03/20/2023 14:36:28 03/20/20 23 03/20/2023 COMPR EHENS SHELLY METAB OLIC PANEL BUN 13 mg/dL 8-19 Not Available [facility] (Lab) [address] [place], [address], 03/20/2023 14:36:28 03/20/20 23 03/20/2023 COMPR EHENS SHELLY METAB OLIC PANEL creatinine 0.90 mg/dL 0.66-1 .25 Not Available [facility] (Lab) [address] [place] [address], [address], 03/20/2023 14:36:28 03/20/20 23 03/20/2023 COMPR EHENS SHELLY METAB OLIC PANEL GFR >60 Refer ence Range : [place] ge GFR Healt hy Adult : >60 [...] calcu lator is avail able on the [facility] websi te: https :[email or web address] [facility].o rg/pr ofess ional s/kdo qi/gf r_cal culat or Not Available [facility] (Lab) [address] [place], [address], 03/20/2023 14:36:28 03/20/2003/20/2023 COMPR EHENS SHELLY METAB OLIC PANEL alkaline phosphatase 68 U/L 38-126 Not Available [facility] (Lab) [address] [place], [address], 03/20/2023 14:36:28 03/20/20 23 03/20/2023 COMPR EHENS SHELLY METAB OLIC PANEL alanine aminotransfe rase 23 U/L 0-50 Not Available [facility] (Lab) [address] [place], [address], 03/20/2023 14:36:28 03/20/20 23 03/20/2023 COMPR EHENS SHELLY METAB OLIC PANEL aspartate aminotransfe rase 28 U/L 15-46 Not Available [facility] (Lab) [address] [place], [address], 03/20/2023 14:36:28 03/20/20 23 03/20/2023 COMPR EHENS SHELLY METAB OLIC PANEL bilirubin, total 0.70 mg/dL 0.20-1 .30 Not Available [facility] (Lab) [address] [place], [address], 03/20/2023 14:36:28 03/20/20 03/20/2023 COMPR EHENS SHELLY METAB OLIC PANEL calcium 9.4 mg/dL 8.4-10 .2 Not Available [facility] (Lab) [address] [place], [address], 03/20/2023 14:36:28 03/20/20 23 03/20/2023 COMPR EHENS SHELLY METAB OLIC PANEL total protein 6.6 g/dL 6.3-8. 2 Not Available [facility] (Lab) [address] [place], [address], 03/20/2023 14:36:28 03/20/20 23 03/20/2023 COMPR EHENS SHELLY METAB OLIC PANEL albumin 3.8 g/dL 3.0-4. 4 Not Available [facility] (Lab) [address] [place], [address], 03/20/2023 14:36:28 03/20/20 23 03/20/2023 COMPR EHENS SHELLY METAB OLIC PANEL globulin 2.8 g/dL 2.6-4. 2 Not Available [facility] (Lab) [address] [place], [address], 03/20/2023 14:36:28 03/20/20 23 03/20/2023 COMPR EHENS SHELLY METAB OLIC PANEL A/G ratio 1.4 ratio 1.0-2. 0 Not Available [facility] (Lab) [address] [place] [address], [address], 03/20/2023 14:36:28 03/20/20 23 03/20/2023 LIPID PANEL cholesterol 151 mg/dL 140-19 9 NIH MONICA NSUS RECOM MENDA TION FOR MIRTA STERO L: ADULT CHILD LOW RISK: <200 <170 BORDE RLINE : <200- 239 ----- HIGH RISK: >240 >200 Not Available [facility] (Lab) [address] [place] [address], [address], 03/20/2023 14:36:30 03/20/20 23 03/20/2023 LIPID PANEL triglyceride s 107 mg/dL 0-150 NIH MONICA NSUS REPOR T RECOM MENDA TION FOR TRIGL YCERI AMARJIT: ADULT CHILD LOW RISK: <150 ----- BODER LINE: 150-1 99 ----- HIGH RISK: >200 ----- Not Available [facility] (Lab) [address] [place], [address], 03/20/2023 14:36:30 03/20/20 23 03/20/2023 LIPID PANEL HDL cholesterol 43 mg/dL 40- Not Available [facility] (Lab) [address] [place], [address], 03/20/2023 14:36:30 03/20/20 23 03/20/2023 LIPID PANEL [...] WILL NOT BE REPOR LISA. Not Available [facility] (Lab) [address] [place], [address], 03/20/2023 14:36:30 05/11/19 23 05/11/2022 , sara er No observ ation record ed. [id number] [facility] [address], [address], [place], [address], 06/13/2022 05:27:26 10/22/19 24 10/22/2023 XR, cervi polo spine , 4 or 5 view [facility] [address] [place] [address] Patien t Name: ORAL PICHARDO Access ion #: [id number] Sex: M : 1959 8 Dictat ed By: Mehran Andrew Attend ing Physic gregorio: INGRID LONDON Physic gregorio: INGRID LONDON Exam Date: 2023 14:59 PM Exam Name: XR C SPINE 4-5V Admitt ing Diagno sis(es ): ACCESS ION #: [facility]-7 [id number] INDICA TION: Cervic algia COMPAR NARAYAN: [...] 2023 15:27: 30 PM Page 1 [email or web address] [facility] (Imaging) [address] [place], [address], 10/27/2023 10:55:39 03/24/20 24 03/24/2024 LDCT, chest , for lung cance r scree [facility] Y [facility] [address] [id number] [phone] Patien t Name: ORAL PICHARDO Access ion #: [id number] Sex: M : 1959 6 Dictat [...] icatio ns of the aorta. Page 1 [facility] Y [facility] [address] [address] Patien t Name: ORAL PICHARDO Access ion #: [id number] Sex: M : 1959 6 Dictat [...] at 2023 10:41: 00 AM Page 2 [email or web address] [facility] (Imaging) [address] [place], [address], 05/21/2024 15:01:31 Result Notes None recorded. Problems Name Problem SNOMED Code Status Onset Date Resolution Date Notes Provider Name and Address Organization Details Recorded Time Tobacco user 210059471 Active Not Available [facility] 3 07:44:22 Benign essential hypertension 1999822 Active Not Available [facility] 3 07:44:22 Chronic obstructive pulmonary disease 88508982 Active Not Available [facility] 3 07:44:22 Increased frequency of urination 542397571 Active 2022 Not Available [facility] 3 07:44:22 Incomplete emptying of urinary bladder 270320253 Active 2021 Not Available [facility] 3 07:44:22 Low back pain 095599204 Active Not Available [facility] 3 07:44:22 Knee pain Active Not Available [facility] 3 07:44:22 Dyslipidemia 557541299 Active 2020 Not Available [facility] 3 07:44:22 Peripheral arterial occlusive disease 212298551 Active Not Available [facility] 3 07:44:23 Influenza 1738079 Active Not Available [facility] 3 07:44:23 Neck pain 20866355 Active Not Available [facility] 3 07:44:23 Pain in limb 53764783 Active Not Available [facility] 3 07:44:23 Skin lesion 23463636 Active 2021 Not Available [facility] 3 07:44:23 Anxiety 89075238 Active 2022 Not Available [facility] 3 07:44:23 Bronchitis 25050418 Active 2022 SATHISH Tinajero, [place] - [facility] 3 16:45:46 Problem Notes None recorded. Procedures Surgical History Date Name Laterality Status Provider Name and Address Organization Details Recorded Time 08/14/19 19 Colonoscopy completed Not Available [facility] 06/14/19 23 05:14:05 06/14/19 16 Stent Placement completed Not Available [facility] 04/2022 05:14:05 Knee Surgery completed Not Available [facility] 06/13/2022 05:14:05 Imaging Results Imaging Date Name Status LastModified by Organiz ation Details LastModified Time 05/11/2022 US, bladder completed [id number] [facility] [place] [address] [facility], [address], [place], [address], 06/13/2022 05:27:26 10/22/2023 XR, cervical spine, 4 or 5 view completed [email or web address] [facility] (Imaging) [address] [place], [address], 10/27/2023 10:55:39 03/24/2024 LDCT, chest, for lung cancer screening completed [email or web address] [facility] (Imaging) [address] [place], [address], 05/21/2024 15:01:31 Procedure Notes None recorded. Medical [...] Not Available No t Available [facility] 0812-8718 (PF) 60 mcg (15 mcg x 4)/0.5 [...] Date Recorded Body mass index (BMI) Body height Heart rate Body temperature Body weight Systolic blood pressure Diastolic blood pressure Provider Name and Address Organization Details Last Updated DateTime 2 23.6 kg/m2 182.88 cm 77 /min 98 [degF] 08255.0 7 g 122 mm[Hg] 76 mm[Hg] Not Available [facility] 3 05:16:28 Date Recorded Body mass index (BMI) Body height Oxygen saturation Oxygen saturation in Arterial blood by Pulse oximetry Heart rate Body temperature Body weight Systolic blood pressure Diastolic blood pressure Provider Name and Address Organization Details Last Updated DateTime 3 23.7 kg/m2 182.88 cm 97 % 97 % 74 /min 98.2 [degF] 99514.6 6 g 180 mm[Hg] 105 mm[Hg] Not Available [facility] 3 05:16:28 Date Recorded Body height Body mass index (BMI) Body weight Body temperature Heart rate Systolic blood pressure Diastolic blood pressure Provider Name and Address Organization Details Last Updated DateTime 3 182.88 cm 24.1 kg/m2 16322.4 4 g 97.9 [degF] 80 /min 146 mm[Hg] 80 mm[Hg] SATHISH David [facility] 3 10:27:27 Date Recorded Body height Body mass index (BMI) Body weight Body temperature Heart rate Systolic blood pressure Diastolic blood pressure Provider Name and Address Organization Details Last Updated DateTime 3 182.88 cm 23.5 kg/m2 56453.4 8 g 98.2 [degF] 62 /min 120 mm[Hg] 82 mm[Hg] SATHISH David [facility] 3 11:32:31 Date Recorded Body height Body mass index (BMI) Body weight Body temperature Heart rate Systolic blood pressure Diastolic blood pressure Provider Name and Address Organization Details Last Updated DateTime 3 182.88 cm 24.3 kg/m2 11745.0 3 g 97.7 [degF] 63 /min 140 mm[Hg] 82 mm[Hg] SATHISH David [facility] 3 16:11:34 Social History Question Answer Notes LastModified by Organization Details LastModified Time Tobacco Smoking Status Current Every Day Smoker VIKAS Sanchez, [employer] 03/27/2023 15:16:17 Do You Have An Advance Directive? No [id number] Information not available 06/13/2022 What Is Your Level Of Alcohol Consumption? None [id number].0301 [id number] Information not available 06/13/2022 What Is Your Level Of Caffeine Consumption? Heavy [id number].0301 [id number] Information not available 06/13/2022 How Much Tobacco Do You Chew? None [id number].0301 [id number] Information not available 06/13/2022 In The 14 Days Before Symptom Onset, Have You Had Close Contact With A Laboratory-conf irmed COVID-19 While That Case Was Ill? No [email or web address] Information not available 03/27/2023 In The 14 Days Before Symptom Onset, Have You Had Close Contact With A Person Who Is Under Investigation For COVID-19 While That Person Was Ill? No [email or web address] Information not available 03/27/2023 What Type Of Diet Are You Following? REGULAR MIGRATION.030 [id number] Information not available 06/13/2022 Which Illicit Or Recreational Drugs Have You Used? None [email or web address] Information not available 03/27/2023 Do You Or Have You Ever Used E-cigarettes Or Vape? Never Used Electronic Cigarettes [email or web address] Information not available 03/27/2023 What Is The Highest Grade Or Level Of School You Have Completed Or The Highest Degree You Have Received? 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 Yes Passed [email or web address] Information not available 03/27/2023 What Is The Fluoride Status Of Your Home? Unknown [email or web address] Information not available 03/27/2023 Are There Any Guns Present In Your Home? No Information not available 03/27/2023 Do You Use Insect Repellent Routinely? No [email or web address] Information not available 03/27/2023 Where Do You Live? SingleLevelHouse With Basement [email or web address] Information not available 03/27/2023 Do You Have A Medical Power Of Country Manager? No [email or web address] Information not available 03/27/2023 What Was The Date Of Your Most Recent Tobacco Screening? 03/27/2023 [email or web address] Information not available 03/27/2023 Do You Have Any Pets? Yes [email or web address] Information not available 03/27/2023 What Is Your Relationship Status? [id number].0301 [id number] Information not available 06/13/2022 Do You Use Your Seat Belt Or Car Seat Routinely? Yes [email or web address] Information not available 03/27/2023 Do You Have Smoke And Carbon Monoxide Detectors In Your Home? Yes [email or web address] Information not available 03/27/2023 At What Age Did You Start Smoking Tobacco? 12 [email or web address] Information not available 03/27/2023 Are You Passively Exposed To Smoke? No [email or web address] Information not available 03/27/2023 Do You Or Have You Ever Used Smokeless Tobacco? Never Used Smokeless Tobacco MIGRATION.0301 [id number] Information not available 06/13/2022 Are There Any Smokers In Your House? No [email or web address] Information not available 03/27/2023 How Much Tobacco Do You Smoke? 1 PPD MIGRATION.030 [id number] Information not available 06/13/2022 What Types Of Sporting Activities Do You Participate In? None Information not available 03/27/2023 Do You Feel Stressed (tense, Restless, Nervous, Or Anxious, Or Unable To Sleep At Night)? [id number] [email or web address] Information not available 03/27/2023 Do You Use Any Illicit Or Recreational Drugs? No [email or web address] Information not available 03/27/2023 Do You Use Sunscreen Routinely? No [email or web address] Information not available 03/27/2023 Have You Recently Traveled Abroad? No [email or web address] Information not available 03/27/2023 Do You Have Any Dietary Restrictions? No [email or web address] Information not available 03/27/2023 Do You Or Have You Ever Used Any Other Forms Of Tobacco Or Nicotine? No [email or web address] Information not available 03/27/2023 Sex: Male Functional Status Question Answer Note LastModified by Organizat ion Details LastModified Time What is your exercise level? Heavy [id number] Information not available 06/13/2022 Mental Status None recorded. Family History Relationship Description Onset Age of this Age Resolved Age Notes LastModified by Organization Details LastModified Time Mother Aneurysm Not availa ble 03/27/2023 15:16:14 Mother Hypertensive disorder [id number] Not available 06/13/2022 05:14:07 Father Heart disease MIGRATION.447 [id number] Not available 06/13/2022 05:14:07 Medical History Condition [...] ARTERY DISEASE (CAD) N ADDICTION CONCERNS N ENDOMETRIOSIS N Impotence N USE OF BLOOD THINNERS N SKIN [...] APNEA N CHICKENPOX N INFECTIOUS DISEASE N HEART ARRHYTHMIA N PROSTATE N INSOMNIA N HIGH CHOLESTEROL / HYPERLIPIDEMIA Y HYPERTHYROIDISM N EYE PROBLEMS N EDEMA N CHRONIC PAIN SYNDROME N HYPOTHYROIDISM N CAROTID BLOCKAGE N CONSTIPATION N BACK / NECK PROBLEMS N HAVE YOU BEEN HOSPITALIZED OR SEEN IN [facility] IN THE PAST YEAR ? N ATHEROSCLEROSIS N BREAST PROBLEMS N DIALYSIS N ECZEMA N OSTEOPOROSIS N ARTHRITIS N APPENDICITIS N DIABETES, TYPE N BAD TEETH N ENT N HEARTBURN / REFLUX N AUTISM SPECTRUM DISORDER (ASD) N HEPATITIS / LIVER DISEASE N GOUT N SLEEP DISORDER N ALZHEIMER'S DISEASE N Brain Problems N HERPES N DEMENTIA N HEADACHES/MIGRAINES N SEIZURES/EPILEPSY N VASCULAR DISEASE N PACEMAKER N Blood Disorder N DIZZINESS N HEART DISEASE/HEART PROBLEMS N KIDNEY DISEASE N MULTIPLE SCLEROSIS N CARDIAC ARRHYTHMIA N CANCER: SPECIFY N ATRIAL FIBRILLATION N Gall Stones N PULMONARY EMBOLISM N AUTOIMMUNE DISEASE N Immunizations Vaccine Type Date Status Note Provider Nam e and Address Organization Details Recorded Time RSV, recombinant, protein subunit RSVpreF, adjuvant reconstituted, 0.5 mL, PF 3 completed VIKAS Sanchez, [place] - [facility] 03/27/2023 15:16:18 influenza, unspecified formulation 3 completed Not Available [facility] 03/22/2023 07:44:23 Influenza, split virus, quadrivalent, preservative 0 completed Not Available [facility] 03/22/2023 07:44:23 Influenza, split virus, quadrivalent, preservative 8 completed Not Available [facility] 03/22/2023 07:44:23 COVID-19, mRNA, LNP-S, PF, 30 mcg/0.3 mL dose 2 completed Not Available [facility] 03/22/2023 07:44:23 Influenza, split virus, trivalent, preservative 2 completed Not Available [facility] 03/22/2023 07:44:23 COVID-19 vaccine, vector-nr, rS-ChAdOx1, PF, 0.5 mL 1 completed Not Available [facility] 03/22/2023 07:44:23 COVID-19 vaccine, vector-nr, rS-ChAdOx1, PF, 0.5 mL 1 completed Not Available [facility] 03/22/2023 07:44:23 Influenza, split virus, quadrivalent, PF 1 completed Not Available [facility] 03/22/2023 07:44:23 Past Encounters Encounter ID Performer Location Encounter Start Date Encounter Closed Date Diagnosis/Indication Diagnosis SNOMED-CT Code Diagnosis ICD10 Code Diagnosis Note [id number] [facility] [address] [address] 08/29/2020 00:00:00 08/29/2020 22:37:05 [id number] [facility] [place] [address] [address] 09/14/2020 00:00:00 09/24/2020 16:43:55 [id number] [facility] [place] [address] [address] 01/20/2021 00:00:00 02/19/2021 21:57:08 [id number] [facility] [place] [address] [facility] [address] [place] [address] 03/27/2021 00:00:00 04/15/2021 22:46:01 [id number] [facility] [address] [place] [address] [address] [address] 07/07/2021 00:00:00 07/09/2021 12:02:52 [id number] [facility] [address] [place] [address] [address] [address] 10/25/2021 00:00:00 11/06/2021 22:28:57 [id number] [facility] [address] [place], [place] [address]., [address] [address] 11/24/2021 00:00:00 12/03/2021 12:17:26 [id number] [facility] [address] [place], [place] [address]., [address] [address] 04/05/2022 00:00:00 04/05/2022 22:55:17 [id number] [facility] [id number] [place] [address] 05/11/2022 00:00:00 05/11/2022 14:46:17 [id number] Keenan London MD [facility] [address] [place] [address] [address] [address] 08/08/2022 10:12:57 08/08/2022 11:07:45 Benign essential hypertension 6307227 I10 Anxiety 12687680 F41.9 Dyslipidemia 335662723 E 78.5 Peripheral arterial occlusive disease 008340180 I73.9 [id number] Keenan London MD [facility] [address] [place] [address] [address] [address] 10/04/2022 11:15:54 10/04/2022 11:59:16 Benign essential hypertension 5462773 I10 Dyslipidemia 255440520 E 78.5 Anxiety 05198463 F41.9 Chronic ob structive pulmonary disease 61713706 J44.9 Peripheral arterial occlusive disease 069471037 I73.9 Tobacco user 442375608 Z 72.0 [id number] Keenan London MD [facility] Internal [facility] [place] [address] [place] [address] [place] [address] 03/27/2023 15:14:36 03/27/2023 16:45:30 Bronchitis 54757074 J40 Dyslipidemia 327153511 E 78.5 Benign ess ential hypertension 4852315 I10 Chronic ob structive pulmonary disease 70832513 J44.9 Peripheral arterial occlusive disease 602832455 I73.9 Health Concerns Section Related Observation LastModified by Organization Detai ls LastModified Time None Recorded Concern Status LastModified by Organization Details LastModified Time None Recorded Advance Directives Directive N: Payers Encounter Date Sequence Insurance Name Policy Number Policy Auguste Covered Member ID Auguste Member ID Guarantor Name 08/08/2022 2 [place] 111 Vinny Kim [id number] Vinny Kim 10/04/2022 2 [place] 111 Vinny Kim [id number] Vinny Kim 03/27/2023 2 [place] 111 Vinny Kim [id number] Vinny Kim 03/27/2023 1 MEDICARE-[place] (MEDICARE) Vinny Kim [id number] Vinny Kim Notes Date Note Type Note Provider Name and Address Organization Details Recorded Time 3 text/htm l Hyperlipidemia could do better with dietAnxiety high no SI or HI some depression symptoms since has passedPeripheral arterial occlusive disease no claudication but continues to smoke Keenan London MD [address], [place], [address], [facility] [employer] 08/19/2022 14:41:26 3 text/htm l smoking continuesAnxiety stableDyslipidemia diet pretty goodCOPD no shortness of no coughPeripheral arterial disease no claudicationHypertension no headache no dizziness Keenan London MD [address], [address], [place], [address], [employer] [facility] 10/16/2022 22:08:30 3 text/htm l COPD continues to smoke denies got a couple of days of yellow sputum and some wheezing. Peripheral arterial occlusive disease no claudication. Hypertension he has not had any headache or chest pain. Keenan London MD [address], [address], [place], [address], [email or web address] [facility] 04/15/2023 21:24:53
--- OUTSIDE RECORDS SUMMARY | 2024-07-20 16:48 | XMS_ITS | Clinical Summary ---
Author Organization [facility] Address [facility] [place] [address] Care Team Providers Care Bus Driver Name Role Phone Keenan London MD Primary Care Provider [phone] Allergies No known active allergies Medications lisinopril [...] Date Smoking Tobacco: Every Day Cigarettes 1 50.3 Started: 1976 Smokeless Tobacco: Never Tobacco Cessation:Ready [...] SCREENING 2023 Annual Medicare Wellness Visit 2023 COVID-19 Vaccine ( season) 2024 01/15/2024, 01/16/2022, 02/10/2021, Additional history exists RSV Immunization or 60+ Years Completed 01/18/2023 Pneumococcal Vaccine: 65+ Years Completed 10/22/2023 Meningococcal B Vaccine Aged Out No l onger eligible based on patient's age to complete this topic Meningococcal Vaccine Aged Out No christopher rosangela eligible based on patient's age to complete this topic RSV Immunizations Under 20 Months Aged Out No longer eligible based on patient's age to complete this topic Insurance [facility] MEDICARE Care Teams Bus Driver Relationship Specialty Start Date End Date Keenan London MD [address] [id number] PCP - General INTERNAL MEDICINE 12/25/23
--- OUTSIDE RECORDS SUMMARY | 2024-07-20 16:49 | XMS_ITS | Continuity of Care Document ---
Author Name [facility] Organization [facility] Care Team Providers Care Photoengraving Etcher Name Role Phone [facility] Unavailable Unavailable Problems Combined list of problems from [facility] and [facility] facilities. It does not include entries that were removed or entered in error. Problem Status Onset Date Problem Type Date of Resolution Comments Source Benign essential hypertension Active Condition [facility] Benign prostatic hyperplasia Active Condition [facility] Depression Active Condition [facility] Hyperlipidemia Active Condition [facility] Light tobacco smoker Active Condition [facility] Peripheral vascular disease Active Condition [facility] Tinnitus Active Condition [facility] Medications Combined list of outpatient medications from [facility] and [facility] facilities.Medications provided include 1) outpatient medications from the last 15 months, and 2) patient-reported medications. Medication Details Route Status Patient Instructions Prescription Expires Prescription Number Last Dispense Date Ordering Provider Order Date Order Qty Source ALBUTEROL SO4 90MCG/ACTUA T (CFC-F) INHL,ORAL,8 .5GM INHALE 2 PUFFS BY ORAL INHALATI ON FOUR TIMES A DAY NEEDED RESPIR ATORY (INHAL ATION) ACTIVE REX ROSE T 2022 [facility] ATORVASTATI N CA 40MG TAB TAKE ONE-HALF TABLET BY MOUTH EVERY EVENING ORAL ACTIVE MILTONREX Singh T 2020 [facility] CLOPIDOGREL BISULFATE 75MG TAB TAKE ONE TABLET BY MOUTH ONCE A DAY ORAL ACTIVE MILTONREX NEUMANN T 2019 [facility] LISINOPRIL 40MG TAB TAKE ONE-HALF TABLET BY MOUTH ONCE A DAY ORAL ACTIVE MILTONREX Singh T 2019 [facility] MULTIVITAMI NS CAP/TAB TAKE ONE TABLET BY MOUTH ONCE A DAY ORAL ACTIVE MILTONREX Singh T 2019 [facility] SERTRALINE HCL 100MG TAB TAKE ONE-HALF TABLET BY MOUTH EVERY MORNING ORAL ACTIVE MILTON,MOH CAMERON Davidson 2022 [facility] TAMSULOSIN HCL 0.4MG CAP TAKE 1 CAPSULE BY MOUTH EVERY EVENING ORAL ACTIVE MILTON,REX Davidson 2022 [facility] Immunizations Combined list of available immunizations from the Department of Defense and Veterans Affairs facilities. Immunization Series Date Given Administered By Site Reaction Lot Number CVX Code Drug Cryptological Technician Status Comments Source INFLUENZA, UNSPECIFIED FORMULATION 2021 88 complet ed [facility] INFLUENZA, UNSPECIFIED FORMULATION 2016 88 complet ed [facility] Results Combined list of recent [...] August 22, 2022 09:47 AM Reporting Lab: [facility] [address] [facility] [address] Performing Lab: [facility] [address] [place] [phone] [facility] COMPREHEN SIVE METABOLIC PANEL UREA NITROGEN [MASS/VOLUM E] IN SERUM OR PLASMA 13 mg/dL 9 - 25 08/22 Specimen Type: PLASMA Comment: No hemolysis noted. Ordering Provider: KEESHA ROSE Report Released Date/Time: August 22, 2022 09:47 AM Reporting Lab: [facility] [address] [facility] [address] Performing Lab: [facility] [address] [place] [phone] [facility] COMPREHEN SIVE METABOLIC PANEL GLUCOSE [MASS/VOLUM E] IN SERUM OR PLASMA 96 mg/dL 72 - 99 08/22 Specimen Type: PLASMA Comment: No hemolysis noted. Ordering Provider: KEESHA ROSE Report Released Date/Time: August 22, 2022 09:47 AM Reporting Lab: [facility] [address] [facility] [address] Performing Lab: [facility] [address] [facility] [address] [facility] COMPREHEN SIVE METABOLIC PANEL SODIUM [MOLES/VOLU ME] IN SERUM OR PLASMA 139 meq/L 136 - 145 08/22 Specimen Type: PLASMA Comment: No hemolysis noted. Ordering Provider: KEESHA ROSE Report Released Date/Time: August 22, 2022 09:47 AM Reporting Lab: [facility] [address] [facility] [address] Performing Lab: [facility] [address] [place] [phone] [facility] COMPREHEN SIVE METABOLIC PANEL POTASSIUM [MOLES/VOLU ME] IN SERUM OR PLASMA 3.7 meq/L 3.5 - 5 08/22 Specimen Type: PLASMA Comment: No hemolysis noted. Ordering Provider: KEESHA ROSE Report Released Date/Time: August 22, 2022 09:47 AM Reporting Lab: [facility] [address] [facility] [address] Performing Lab: [facility] [address] [facility] [address] [facility] COMPREHEN SIVE METABOLIC PANEL CHLORIDE [MOLES/VOLU ME] IN SERUM OR PLASMA 105 meq/L 98 - 107 08/22 Specimen Type: PLASMA Comment: No hemolysis noted. Ordering Provider: KEESHA ROSE Report Released Date/Time: August 22, 2022 09:47 AM Reporting Lab: [facility] [address] [facility] [address] Performing Lab: [facility] [address] [facility] [address] [facility] COMPREHEN SIVE METABOLIC PANEL CARBON DIOXIDE, TOTAL [MOLES/VOLU ME] IN SERUM OR PLASMA 24 meq/L 22 - 31 08/22 Specimen Type: PLASMA Comment: No hemolysis noted. Ordering Provider: KEESHA ROSE Report Released Date/Time: August 22, 2022 09:47 AM Reporting Lab: [address] [phone] Performing Lab: [address] [phone] [place] [address] COMPREHEN SIVE METABOLIC PANEL CALCIUM [MASS/VOLUM E] IN SERUM OR PLASMA 9.4 mg/dL 8.4 - 10.4 08/22 Specimen Type: PLASMA Comment: No hemolysis noted. Ordering Provider: KEESHA ROSE Report Released Date/Time: August 22, 2022 09:47 AM Reporting Lab: [address] [address] Performing Lab: [address] [phone] [facility] COMPREHEN SIVE METABOLIC PANEL PROTEIN [MASS/VOLUM E] IN SERUM OR PLASMA 6.8 g/dL 6 - 8.6 08/22 Specimen Type: PLASMA Comment: No hemolysis noted. Ordering Provider: KEESHA ROSE Report Released Date/Time: August 22, 2022 09:47 AM Reporting Lab: [address] [address] Performing Lab: [address] [address] [facility] COMPREHEN SIVE METABOLIC PANEL ALBUMIN [MASS/VOLUM E] IN SERUM OR PLASMA 4.2 g/dL 3.4 - 5 08/22 Specimen Type: PLASMA Comment: No hemolysis noted. Ordering Provider: KEESHA ROSE Report Released Date/Time: August 22, 2022 09:47 AM Reporting Lab: [address] [address] Performing Lab: [address] [place] [address] [facility] COMPREHEN SIVE METABOLIC PANEL BILIRUBIN.T OTAL [MASS/VOLUM E] IN SERUM OR PLASMA 0.4 mg/dL 0.2 - 1.2 08/22 Specimen Type: PLASMA Comment: No hemolysis noted. Ordering Provider: KEESHA ROSE Report Released Date/Time: August 22, 2022 09:47 AM Reporting Lab: [facility] [address] [place] [phone] Performing Lab: [address] [address] [facility] COMPREHEN SIVE METABOLIC PANEL ALKALINE PHOSPHATASE [ENZYMATIC ACTIVITY/VO LUME] IN SERUM OR PLASMA 76 U/L 40 - 150 08/22 Specimen Type: PLASMA Comment: No hemolysis noted. Ordering Provider: KEESHA ROSE Report Released Date/Time: August 22, 2022 09:47 AM Reporting Lab: [facility] [address] [place] [phone] Performing Lab: [facility] [address] [place] [phone] [facility] COMPREHEN SIVE METABOLIC PANEL ASPARTATE AMINOTRANSF ERASE [ENZYMATIC ACTIVITY/VO LUME] IN SERUM OR PLASMA 19 U/L 5 - 34 08/22 Specimen Type: PLASMA Comment: No hemolysis noted. Ordering Provider: KEESHA ROSE Report Released Date/Time: August 22, 2022 09:47 AM Reporting Lab: [facility] [address] [facility] [address] Performing Lab: [address] [address] [facility] COMPREHEN SIVE METABOLIC PANEL ALANINE AMINOTRANSF ERASE [ENZYMATIC ACTIVITY/VO LUME] IN SERUM OR PLASMA 17 U/L 8 - 40 08/22 Specimen Type: PLASMA Comment: No hemolysis noted. Ordering Provider: KEESHA ROSE Report Released Date/Time: August 22, 2022 09:47 AM Reporting Lab: [facility] [address] [facility] [address] Performing Lab: [facility] [address] [facility] [address] [facility] COMPREHEN SIVE METABOLIC PANEL GLOMERULAR FILTRATION RATE/1.73 SQ M.PREDICTED [VOLUME RATE/AREA] IN SERUM, PLASMA OR BLOOD BY CREATININE- BASED FORMULA (CKD-EPI 2020) 77.5 <60 - 60 08/22 Specimen Type: PLASMA Comment: No hemolysis noted. Ordering Provider: KEESHA ROSE Report Released Date/Time: August 22, 2022 09:47 AM Reporting Lab: [facility] [address] [place] [phone] Performing Lab: [address] [address] [facility] LIPID PANEL (STL) CHOLESTEROL [MASS/VOLUM E] IN SERUM OR PLASMA 148 mg/dL 0 - 200 08/22 Specimen Type: PLASMA Comment: No hemolysis noted. Ordering Provider: KEESHA ROSE Report Released Date/Time: August 22, 2022 09:47 AM Reporting Lab: [facility] [address] [place] [phone] Performing Lab: [facility] [address] [place] [phone] [facility] LIPID PANEL (STL) TRIGLYCERID E [MASS/VOLUM E] IN SERUM OR PLASMA 105 mg/dL 0 - 150 08/22 Specimen Type: PLASMA Comment: No hemolysis noted. Ordering Provider: KEESHA ROSE Report Released Date/Time: August 22, 2022 09:47 AM Reporting Lab: [facility] [address] [place] [phone] Performing Lab: [facility] [address] [place] [phone] [facility] LIPID PANEL (STL) CHOLESTEROL IN LDL [MASS/VOLUM E] IN SERUM OR PLASMA BY CALCULATION 77 mg/dL 08/22 Specimen Type: PLASMA Comment: No hemolysis noted. Ordering Provider: KEESHA ROSE Report Released Date/Time: August 22, 2022 09:47 AM Reporting Lab: [place] [phone] Performing Lab: [address] [phone] [place] [address] LIPID PANEL (STL) CHOLESTEROL IN HDL [MASS/VOLUM E] IN SERUM OR PLASMA 50 mg/dL 40 08/22 Specimen Type: PLASMA Comment: No hemolysis noted. Ordering Provider: KEESHA ROSE Report Released Date/Time: August 22, 2022 09:47 AM Reporting Lab: [place] [address] Performing Lab: [address] [phone] CBC LEUKOCYTES [#/VOLUME] IN BLOOD BY AUTOMATED COUNT 5.9 10*3/u L 3.6 - 11.2 08/22 Specimen Type: BLOOD No comment entered. Ordering Provider: KEESHA ROSE Report Released Date/Time: August 22, 2022 09:47 AM Reporting Lab: [address] [address] Performing Lab: [address] [phone] [place] [address] CBC ERYTHROCYTE S [#/VOLUME] IN BLOOD BY AUTOMATED COUNT 5.09 10*6/u L 4.10 - 5.70 08/22 Specimen Type: BLOOD No comment entered. Ordering Provider: KEESHA ROSE Report Released Date/Time: August 22, 2022 09:47 AM Reporting Lab: [address] [address] Performing Lab: [address] [phone] [place] [address] CBC HEMOGLOBIN [MASS/VOLUM E] IN BLOOD 16.0 g/dL 13.1 - 16.8 08/22 Specimen Type: BLOOD No comment entered. Ordering Provider: KEESHA ROSE Report Released Date/Time: August 22, 2022 09:47 AM Reporting Lab: [facility] [address] [place], [place] [phone] Performing Lab: [facility] [address] [place], [place] [phone] [place] [address] CBC HEMATOCRIT [VOLUME FRACTION] OF BLOOD 48.1 38.2 - 48.4 08/22 Specimen Type: BLOOD No comment entered. Ordering Provider: KESEHA ROSE Report Released Date/Time: August 22, 2022 09:47 AM Reporting Lab: [place] [address] Performing Lab: [address] CBC MCV [ENTITIC VOLUME] BY AUTOMATED COUNT 94.5 fL 80.0 - 100.0 08/22 Specimen Type: BLOOD No comment entered. Ordering Provider: KEESHA ROSE Report Released Date/Time: August 22, 2022 09:47 AM Reporting Lab: [facility] [address] [place] [address] Performing Lab: [place] [phone] CBC MCH [ENTITIC MASS] BY AUTOMATED COUNT 31.4 pg 27.0 - 34.0 08/22 Specimen Type: BLOOD No comment entered. Ordering Provider: KEESHA ROSE Report Released Date/Time: August 22, 2022 09:47 AM Reporting Lab: [facility] [address] [place], [place] [phone] Performing Lab: [facility] [address] [place] [address] CBC MCHC [MASS/VOLUM E] BY AUTOMATED COUNT 33.3 g/dL 33.0 - 36.0 08/22 Specimen Type: BLOOD No comment entered. Ordering Provider: KEESHA ROSE Report Released Date/Time: August 22, 2022 09:47 AM Reporting Lab: [facility] [address] [place] [phone] Performing Lab: [facility] [address] [facility] [address] [facility] CBC PLATELETS [#/VOLUME] IN BLOOD BY AUTOMATED COUNT 261 10*3/u L 150 - 400 08/22 Specimen Type: BLOOD No comment entered. Ordering Provider: KEESHA ROSE Report Released Date/Time: August 22, 2022 09:47 AM Reporting Lab: [facility] [address] [place] [phone] Performing Lab: [facility] [address] [place], [place] [phone] [place] [address] CBC PLATELET MEAN VOLUME [ENTITIC VOLUME] IN BLOOD BY AUTOMATED COUNT 10.0 fL 7.5 - 11.2 08/22 Specimen Type: BLOOD No comment entered. Ordering Provider: KEESHA ROSE Report Released Date/Time: August 22, 2022 09:47 AM Reporting Lab: [facility] [address] [place] [phone] Performing Lab: [facility] [address] [place] [phone] [place] [address] CBC ERYTHROCYTE DISTRIBUTIO N WIDTH [RATIO] BY AUTOMATED COUNT 12.9 11.8 - 15.1 08/22 Specimen Type: BLOOD No comment entered. Ordering Provider: KEESHA ROSE Report Released Date/Time: August 22, 2022 09:47 AM Reporting Lab: [facility] [address] [place] [phone] Performing Lab: [facility] [address] [place] [phone] [facility] CBC LYMPHOCYTES /100 LEUKOCYTES IN BLOOD BY AUTOMATED COUNT 27 08/22 Specimen Type: BLOOD No comment entered. Ordering Provider: KEESHA ROSE Report Released Date/Time: August 22, 2022 09:47 AM Reporting Lab: [facility] [address] [facility] [address] Performing Lab: [facility] [address] [facility] [address] [facility] CBC MONOCYTES/1 00 LEUKOCYTES IN BLOOD BY AUTOMATED COUNT 7 08/22 Specimen Type: BLOOD No comment entered. Ordering Provider: KEESHA ROSE Report Released Date/Time: August 22, 2022 09:47 AM Reporting Lab: [facility] [address] [facility] [address] Performing Lab: [facility] [address] [place] [phone] [facility] CBC NEUTROPHILS /100 LEUKOCYTES IN BLOOD BY AUTOMATED COUNT 63 08/22 Specimen Type: BLOOD No comment entered. Ordering Provider: KEESHA ROSE Report Released Date/Time: August 22, 2022 09:47 AM Reporting Lab: [facility] [address] [place] [phone] Performing Lab: [facility] [address] [place] [phone] [facility] CBC EOSINOPHILS /100 LEUKOCYTES IN BLOOD BY AUTOMATED COUNT 2 08/22 Specimen Type: BLOOD No comment entered. Ordering Provider: KEESHA ROSE Report Released Date/Time: August 22, 2022 09:47 AM Reporting Lab: [facility] [address] [place] [phone] Performing Lab: [facility] [address] [facility] [address] [facility] CBC BASOPHILS/1 00 LEUKOCYTES IN BLOOD BY AUTOMATED COUNT 1 08/22 Specimen Type: BLOOD No comment entered. Ordering Provider: KEESHA ROSE Report Released Date/Time: August 22, 2022 09:47 AM Reporting Lab: [facility] [address] [place] [phone] Performing Lab: [facility] [address] [place] [phone] [facility] CBC LYMPHOCYTES [#/VOLUME] IN BLOOD BY AUTOMATED COUNT 1.58 10*3/u L 0.77 - 4.50 08/22 Specimen Type: BLOOD No comment entered. Ordering Provider: KEESHA ROSE Report Released Date/Time: August 22, 2022 09:47 AM Reporting Lab: [place] [phone] Performing Lab: [address] CBC MONOCYTES [#/VOLUME] IN BLOOD BY AUTOMATED COUNT 0.44 10*3/u L 0.19 - 1.50 08/22 Specimen Type: BLOOD No comment entered. Ordering Provider: KEESHA ROSE Report Released Date/Time: August 22, 2022 09:47 AM Reporting Lab: [place] [address] Performing Lab: [address] CBC NEUTROPHILS [#/VOLUME] IN BLOOD BY AUTOMATED COUNT 3.72 10*3/u L 2.10 - 8.00 08/22 Specimen Type: BLOOD No comment entered. Ordering Provider: KEESHA ROSE Report Released Date/Time: August 22, 2022 09:47 AM Reporting Lab: [address] [address] Performing Lab: [address] [phone] [place] [address] CBC EOSINOPHILS [#/VOLUME] IN BLOOD BY AUTOMATED COUNT 0.12 10*3/u L 0.00 - 0.60 08/22 Specimen Type: BLOOD No comment entered. Ordering Provider: KEESHA ROSE Report Released Date/Time: August 22, 2022 09:47 AM Reporting Lab: [address] [address] Performing Lab: [place] [phone] CBC BASOPHILS [#/VOLUME] IN BLOOD BY AUTOMATED COUNT 0.05 10*3/u L 0.00 - 0.20 08/22 Specimen Type: BLOOD No comment entered. Ordering Provider: KEESHA ROSE Report Released Date/Time: August 22, 2022 09:47 AM Reporting Lab: [address] [address] Performing Lab: [place] [phone] HGA1C HEMOGLOBIN A1C/HEMOGLO BIN.TOTAL IN BLOOD 5.5 4.0 - 6.0 08/22 Specimen Type: BLOOD Comment: No hemolysis noted. Ordering Provider: KEESHA ROSE Report Released Date/Time: August 22, 2022 09:47 AM Reporting Lab: [address] [phone] Performing Lab: [address] [phone] [place] [address] URINALYSI S (STL) COLOR OF URINE Light- Yellow 08/22 Specimen Type: URINE No comment entered. Ordering Provider: KEESHA ROSE Report Released Date/Time: August 22, 2022 09:47 AM Reporting Lab: [address] [phone] Performing Lab: [address] [phone] [place] [address] URINALYSI S (STL) BILIRUBIN.T OTAL [PRESENCE] IN URINE BY TEST STRIP Negati vemg/d L 08/22 Specimen Type: URINE No comment entered. Ordering Provider: KEESHA ROSE Report Released Date/Time: August 22, 2022 09:47 AM Reporting Lab: [address] [address] Performing Lab: [address] [phone] [facility] URINALYSI S (STL) PH OF URINE BY TEST STRIP 6.0 5.0 - 8.0 08/22 Specimen Type: URINE No comment entered. Ordering Provider: KEESHA ROSE Report Released Date/Time: August 22, 2022 09:47 AM Reporting Lab: [address] [address] Performing Lab: [address] [phone] [facility] URINALYSI S (STL) APPEARANCE OF URINE Clear 08/22 Specimen Type: URINE No comment entered. Ordering Provider: KEESHA ROSE Report Released Date/Time: August 22, 2022 09:47 AM Reporting Lab: [address] [address] Performing Lab: [address] [phone] [place] [address] URINALYSI S (STL) NITRITE [PRESENCE] IN URINE BY TEST STRIP Negati vemg/d L 08/22 Specimen Type: URINE No comment entered. Ordering Provider: KEESHA ROSE Report Released Date/Time: August 22, 2022 09:47 AM Reporting Lab: [address] [address] Performing Lab: [address] [phone] [facility] URINALYSI S (STL) GLUCOSE [MASS/VOLUM E] IN URINE BY TEST STRIP Normal mg/dL 08/22 Specimen Type: URINE No comment entered. Ordering Provider: KEESHA ROSE Report Released Date/Time: August 22, 2022 09:47 AM Reporting Lab: [address] [phone] Performing Lab: [address] [address] [facility] URINALYSI S (STL) PROTEIN [MASS/VOLUM E] IN URINE BY TEST STRIP Negati vemg/d L - 20 08/22 Specimen Type: URINE No comment entered. Ordering Provider: KEESHA ROSE Report Released Date/Time: August 22, 2022 09:47 AM Reporting Lab: [address] [address] Performing Lab: [place] [phone] [place] [address] URINALYSI S (STL) URN.UROBILI NOGEN Normal mg/dL 08/22 Specimen Type: URINE No comment entered. Ordering Provider: KEESHA ROSE Report Released Date/Time: August 22, 2022 09:47 AM Reporting Lab: [address] [address] Performing Lab: [place] [phone] [place] [address] URINALYSI S (STL) HEMOGLOBIN [MASS/VOLUM E] IN URINE BY TEST STRIP Negati vemg/d L 08/22 Specimen Type: URINE No comment entered. Ordering Provider: KEESHA ROSE Report Released Date/Time: August 22, 2022 09:47 AM Reporting Lab: [address] [address] Performing Lab: [address] [address] [facility] URINALYSI S (STL) KETONES [MASS/VOLUM E] IN URINE BY TEST STRIP Negati vemg/d L 08/22 Specimen Type: URINE No comment entered. Ordering Provider: KEESHA ROSE Report Released Date/Time: August 22, 2022 09:47 AM Reporting Lab: [address] [address] Performing Lab: [address] [address] [facility] URINALYSI S (STL) URN.LEUK.ES T. Negati vemg/d L 08/22 Specimen Type: URINE No comment entered. Ordering Provider: KEESHA ROSE Report Released Date/Time: August 22, 2022 09:47 AM Reporting Lab: [address] [address] Performing Lab: [address] [phone] [place] [address] URINALYSI S (STL) SPECIFIC GRAVITY OF URINE 1.010 1.005 - 1.029 08/22 Specimen Type: URINE No comment entered. Ordering Provider: KEESHA ROSE Report Released Date/Time: August 22, 2022 09:47 AM Reporting Lab: [address] [address] Performing Lab: [address] [address] [facility] PROST. SPECIFIC AG.(PB-ST L) PROSTATE SPECIFIC [...] August 22, 2022 09:47 AM Reporting Lab: [facility] [address] [place] [phone] Performing Lab: [address] [address] [facility] B12 COBALAMIN (VITAMIN B12) [MASS/VOLUM E] [...] August 22, 2022 09:47 AM Reporting Lab: [address] [address] Performing Lab: [address] [address] [facility] VITAMIN D, 25-HYDROX Y 25-HYDROXYV ITAMIN [...] August 22, 2022 09:47 AM Reporting Lab: [address] [address] Performing Lab: [address] [phone] [place] [address] Encounters Combined list of: 1) Encounters from Department of [facility] Affairs facilities going backup to the last 18 months, not all [place] inpatient encounters are included; 2) Encounters from the Department of [facility] facilities going backup to 280 months. Location Location Details Encounter Type Encounter Number Reason For Visit Attending Provider ADM Date DC Date Status Disposition Source [facility] Outpatient Encounter [id number] 05/24 [facility] Outpatient Encounter [id number] 05/24 [facility] Outpatient Encounter [id number] MAT VARGAS 05/24 [facility] Outpatient Encounter [id number] 06/23 [facility] Social History Combined list of available smoking, tobacco, and other social history from [facility] and [facility] facilities. 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
--- OUTSIDE RECORDS SUMMARY | 2024-07-20 16:49 | XMS_ITS | CONTINUITY OF CARE DOCUMENT ---
Author Name kingsebonie kingsebonie Address Unknown Organization [facility] Address [address] [place] [address] Phone [phone] Care Team Providers Care [employer] Supervisor Name Role Phone Froilan GRAF, Lee Lyle Unavailable [phone] ADRI BURK MD Unavailable ADRI BURK MD Unavailable PROBLEMS Condition Status Date Provider Notes COUGH active Lobo Broussard Peripheral vascular disease active Chantelle urbina Carotid artery disease <50% active Lee brynat MD COPD active Lee Mcgovern MD Tobacco abuse active Lee Mcgovern MD Hypertension active Lee Mcgovern MD Hypercholesterolemia active Lee Mcgovern MD Coronary arterial disease completed - Lee Mcgovern MD ENCOUNTERS Date Type Provider Location Encounter Diag nosis 09/13 - 09/18 In-person encounter Office Visit Lee Mcgovern MD [facility] COPDCarotid artery disease <50% 08/09 - 08/15 In-person encounter Office Visit Lee Mcgovern MD [facility] Coronary arterial diseaseHypercholesterolemiaHypertensionTobacco abuse VITAL SIGNS Date Observation Value Provider blood pressure, diastolic, left arm 90 mm [Hg] Jeanie Sanchez blood pressure, systolic, left arm 154 mm [Hg] Jeanie Sanchez blood pressure, diastolic, right arm 96 m m[Hg] Jeanie Sanchez blood pressure, systolic, right arm 139 m m[Hg] Jeanie Sanchez blood pressure, diastolic 90 mm[Hg] Me avila Sanchez blood pressure, systolic 154 mm[Hg] Rochelle herbert Sanchez pulse rate 74 /min Jeanie Sanchez respiratory rate E&M 14 /min Jeanie Sanchez oxygen saturation, oximetry 94 % Jeanie Sanchez Body Mass Index (Ratio) 26.85 kg/m2 Korin fermin Sanchez weight E&M 198 [lb_av] Jeanie Sanchez blood pressure, diastolic 98 mm[Hg] April Rodriguez blood pressure, systolic 181 mm[Hg] Katerina Rodriguez pulse rate 56 /min Bryson Malloy remi oxygen saturation, oximetry 94 % Bryson Rodriguez respiratory rate E&M 18 /min Qiana simpson Rdoriguez Body Mass Index (Ratio) 26.99 kg/m2 Candice Rodriguez weight E&M 199 [lb_av] Bryson Malloy remi height E&M 72 [in_i] Bryson Malloy josephrikki ALLERGIES No Known Drug Allergies RESULTS Date Observation Value Provider Reference Range Interpretation Location 1 LDL cholesterol, serum 155 mg/dL Lee Mcgovern MD HISTORY OF MEDICATION USE Medication Status Instructions Dates Provider Indications Com ments KEFLEX 500 MG ORAL CAPSULE completed Four capsules daily for two weeks 7 - 1 Jeanie Sanchez MULTIVITAMINS ORAL CAPSULE active ONE TAB. DAILY Bryson Rodriguez ASPIRIN 325 MG ORAL TABLET active one tab daily Bryson Rodriguez CRESTOR 20 MG ORAL TABLET active ONE TAB. DAILY Bryson Rodriguez LISINOPRIL 20 MG ORAL TABLET active ONE TAB. DAILY Bryson Rodriguez PLAVIX 75 MG ORAL TABLET active ONE TAB. DAILY Bryson Rodriguez SOCIAL HISTORY Date Observation Value Provider social history reviewed E&M revi ewed - no changes required Lee Mcgovern MD smoking/tobacco cess ation, patient education and counseling yes Jeanie Sanchez number of years as a smoker 40 a Jeanie Sanchez smoking history, tot al pack/day 1 Jeanie Sanchez cigarette use yes Jeanie Sanchez smoking status Current every day smoker Dariela Sanchez social history E&M Smoking Histo ry: P atiftikhar currently smokes every day. P atiftikhar has been counseled to quit. Lee Mcgovern MD smoking/tobacco cess ation, patient education and counseling yes Lee Mcgovern MD social history reviewed E&M revi ewed - no changes required Lee Mcgovern MD number of years as a smoker 40 a Bryson Michael smoking history, tot al pack/day 1 Bryson Michael cigarette use yes Bryson Jonh pierce smoking status Current every day smoker Dariela Dai Rodriguez FAMILY HISTORY Family Member Condition Mother Family History of Hy pertension: INSURANCE PROVIDERS Payer name Policy type / Coverage type [place] [employer] democr[employer] ID BLUE PREFERRED O [facility] [id number] TREATMENT PLAN Date Name Performer Cardiology Zack mojica Cardiology:BP today: 154/90 P rior BP: 181/98 (08/10/2015) His updated medication list for this problem includes: Aspirin 325 Mg Tabs (Aspirin) ..... One tab daily Lisinopril 20 Mg Tabs (Lisinopril) ..... One tab. daily Zack Duarte Cardiology:STRONGLY ENCOURAGED TO STOP SMOKING; SMOKING CESSATION TECHNIQUES DISCUSSED. Zack Duarte Cardiology:PFT's skip wed severe COPD. I again advised him to stop smoking. Lee Mcgovern MD Cardiology:LDL: 155 (07/15/2015) His updated medication list for this problem includes: Crestor 20 Mg Tabs (Rosuvastatin calcium) ..... One tab. daily Lee Mcgovern MD Cardiology:BP today: 181/98 His updated medication list for this problem includes: Aspirin 325 Mg Tabs (Aspirin) ..... One tab daily Lisinopril 20 Mg Tabs (Lisinopril) ..... One tab. daily Lee Mcgovern MD Cardiology:STRONGLY ENCOURAGED TO STOP SMOKING; SMOKING CESSATION TECHNIQUES DISCUSSED. Lee Mcgovern MD Cardiology:S/P stent placement in the left iliac artery. He's feeling much better. His walking ability greatly improved. Lee Mcgovern MD Date Name Complete Echo DLCO - 76590 FRC - 61223 FVC - 24400 Carotid Duplex Bilat eral HISTORY OF PROCEDURES Procedure Date Procedure Name Provider Procedure Notes S tatus SNOMED-CT: 593718785 Smoking Cessation Counseling Lee Mcgovern MD completed SNOMED-CT: 086211195 [id number] Current Medications Documented Lee Mcgovern MD completed BLOOD COUNT HEMOGLOBIN Lee Mcgovern MD completed FVC - 85244 Lee Mcgovern MD completed FRC - 06716 Lee Mcgovern MD completed DLCO - 82659 Lee Mcgovern MD complete d SNOMED-CT: 251155653 Smoking Cessation Counseling Lee Mcgovern MD completed EKG Lee Mcgovern MD completed SNOMED-CT: 097789139 335803 Current Medications Documented Lee Mcgovern MD completed Stress EKG Og Case MD complete d Cardiolite, 2 units Lee Mcgovenr MD c ompleted SPECT Images Amber Post MD complet ed
== END 2024-07-20 14:35 | disposition home or self-care (01) ==
LOC: ANHCARD 14:39
PROVIDERS: PCP Internal Medicine; Visit Provider Internal Medicine
DX: I10 Essential (primary) hypertension (principal)
CPT/HCPCS: 93306

== ENCOUNTER 2025-03-05 08:31 | Outpatient (CLI) | payer MEDICARE, BC, SELFPAY ==
--- NOTE | ~2025-03-05 | US_ITS ---
EXAM/PROCEDURE: US arterial ankle brachial ind HISTORY: peripheral vascular disease unspecified COMPARISON: None available. TECHNIQUE: TRACEY exam FINDINGS: Right and left brachial systolic pressure readings are 165 and 169 Right and left posterior tibial pressure readings are 179 and 117 Right and left dorsalis pedis pressure readings are 186 and 107 Right and left great toe pressure readings are 144 and 60 Right and left ABIs are 1.10 and 0.69 Right and left TBI's are 0.85 and 0.36 Plethysmography appears widened on the left side and normal on the right side. IMPRESSION: 1. Probably moderately severe disease in the left lower extremity based on TRACEY of 0.69. 2. Right side TRACEY within normal limits. Reviewed, dictated and finalized at location [facility]. [facility]
--- OUTSIDE RECORDS SUMMARY | 2025-03-05 08:37 | XMS_ITS | Data Portability ---
Author Organization [facility] Address [address] [place] [address] Care Team Providers Care Commissioning Engineer Name Role Phone ADRI LONDON Primary Care Provider [phone] BILLY FAIR Urologist Assessment Encounter Date Assessment Date Assessment LastModified by Organization Details LastModified Time 02/14/2024 02/14/2024 his blood pressu re is [...] are up-to-date see me in 3-4 months [email or web address] Not available 02/15/2024 17:21:02 02/21/2024 02/21/2024 assessments discussed immunizations and screenings ordered were appropriate and patient agreeable. We will keep regular follow up [email or web address] Not available 02/21/2024 21:44:59 06/26/2024 06/26/2024 tobacco [...] will see me back in 1 month [email or web address] Not available 06/27/2024 15:33:49 08/14/2024 08/14/2024 Lisinopril 40 mg 1 daily cut back off tobacco and salt see me in 3 months also dermatology referral for skin lesion [email or web address] Not available 08/29/2024 22:05:57 12/16/2024 12/16/2024 CBC CMP lipid AB Is Dopplers with waveform of the legs add Breztri 2 puffs b.i.d. see me in 4 months warned of the ill effects of tobacco which were included but not limited to increase tumors of the aerodigestive tract other systems heart attack stroke and cancer that could lead to sudden or chronic medical illness [email or web address] Not available 12/16/2024 22:10:22 Plan of Treatment Reminders Order Date Submit Date Provider Last Modified By Organization Details Last Modified Time Details Appointments ANY 15 2025 01:15P Dariela London MD Not available Not available Not available Lab CMP, serum or plasma 2024 025 [facility], [address], [address], [place], [address], 12/17/2024 07:14:39 lipid panel, serum 2024 025 [facility], [address], [place], [address], 12/17/2024 07:14:38 CBC w/ auto diff 2024 025 [facility], [address], [place], [address], 12/17/2024 07:14:39 Referral dermatolo gist referral 2024 025 [facility], [address] [place] [address], [address], 11/04/2024 10:05:36 Procedures colonosco py screening (PROC) 2023 024 [facility], [address], [address], [place], [address], 05/28/2024 11:57:12 Surgeries None recorded. Imaging electroca rdiogram 2024 025 [email or web address] In-Office Order, Internal Use Only DO Not Attach Compendium DO Not Attach Compendium, Do Not Delete/merge, [id number] 06/26/2024 15:33:23 LDCT, chest, for lung cancer screening 2023 024 [facility]), [address] [place], [address], 03/24/2024 11:45:57 Medication Orders Breztri Aerospher e 160 mcg-9mcg- 4.8mcg/ac tuation HFA aerosol inhaler 2024 025 [email or web address] [facility], [address] [place] [address], [id number], 12/16/2024 22:14:17 lisinopri l 40 mg tablet 2024 025 [facility], [address] [place] [address], [id number], 08/14/2024 15:11:40 lisinopri l 20 mg tablet 2024 025 [facility], [address] [place] [address], [address], 08/14/2024 16:03:50 Patient TargetsNo targets recorded. Patient Instructions Encounter Date Encounter Id Patient Instructions Last Modified By Organization Details Last Modified Time 02/14/2024 [id number] A healthy lifestyle: care instructions [email or web address] Not available 02/14/2024 11:59:03 02/21/2024 [id number] Quitting Tobacco : Care Instructions [email or web address] Not available 02/21/2024 14:09:48 Medicare Wellnes s Preventive Checklist [email or web address] Not available 02/21/2024 14:09:48 08/14/2024 [id number] A healthy lifestyle: care instructions Not available 08/14/2024 12:25:43 Quitting Tobacco : Care Instructions [email or web address] Not available 08/14/2024 12:25:43 12/16/2024 [id number] eating healthy foods: care instructions [email or web address] Not available 12/16/2024 14:54:46 Quitting Tobacco : Care Instructions [email or web address] Not available 12/16/2024 14:54:46 (TRACEY) ankle brachial index* - with waveforms. [email or web address] Not available 03/04/2025 10:03:39 Reason for Referral [facility] Referral for S kin lesion Referring Physician: Adri London, Internal Medicine, Encounter Date: 08/14/2024 Results Created Date Observation Date Name Description Value Unit Range Abnormal Flag Note LastModifiedBy Organization Detail LastModifiedTime 12/17/1912/17/2024 LIPID PANEL cholesterol, total 124 mg/dL 100-19 9 Not Available [facility] ([facility]) [address] [facility], [place], [address], 12/17/2024 07:14:38 12/17/19 25 12/17/2024 LIPID PANEL triglyceride s 65 mg/dL 0-149 Not Available [facility] ([facility]) [address] [facility], [place], [address], 12/17/2024 07:14:38 12/17/1912/17/2024 LIPID PANEL HDL cholesterol 43 mg/dL >39 Not Available [facility] ([facility]) [address] [facility], [place], [address], 12/17/2024 07:14:38 12/17/19 25 12/17/2024 LIPID PANEL VLDL cholesterol polo 14 mg/dL 5-40 Not Available [facility] ([facility]) [address] [facility], [place], [address], 12/17/2024 07:14:38 12/17/19 25 12/17/2024 LIPID PANEL LDL chol calc ([facility]) 67 mg/dL 0-99 Not Available [facility] ([facility]) [address] [place], [address], 12/17/2024 07:14:38 12/17/19 25 12/16/2024 COMP. METAB OLIC PANEL (14) interpretati on: COMMEN T GFR estim ate at the follo wing level for >or=3 month s is class ified as follo ws: GFR WITH KIDNE Y DAMAG E WITHO UT KIDNE Y DAMAG E >or=9 0 Stage 1 Zakia l 60-89 Stage 2 Decr eased GFR 30-59 Stage 3 Stage 3 15-29 Stage 4 Stage 4 <15 (or dialy sis) Stage 5 Stage 5 Estim ated GFR will over estim ate true GFR if serum creat inine is risin g as in acute renal failu re and will under estim ate true GFR if serum creat inine is decli bob as in resol ving acute renal failu re. Addit ional infor collette hermosillo may be found at [email or web address] org. Not Available [facility] ([facility]) [address] [facility] [address], [place], [address], 12/17/2024 07:14:39 12/17/19 25 12/17/2024 COMP. METAB OLIC PANEL (14) glucose 45 mg/dL 70-99 below low normal Not Available [facility] ([facility]) [address] [place], [address], 12/17/2024 07:14:39 12/17/19 25 12/17/2024 COMP. METAB OLIC PANEL (14) BUN 18 mg/dL 8-27 Not Available [facility] ([facility]) [address] [place], [address], 12/17/2024 07:14:39 12/17/19 25 12/17/2024 COMP. METAB OLIC PANEL (14) creatinine 0.92 mg/dL 0.76-1 .27 Not Available [facility] ([facility]) [address], [place], [address], 12/17/2024 07:14:39 12/17/19 25 12/17/2024 COMP. METAB OLIC PANEL (14) eGFR 92 mL/mi n/1.7 3 >59 Not Available [facility] ([facility]) [address], [place], [address], 12/17/2024 07:14:39 12/17/19 25 12/17/2024 COMP. METAB OLIC PANEL (14) BUN/creatini ne ratio 20 10-24 Not Available [facility] ([facility]) [address], [place], [address], 12/17/2024 07:14:39 12/17/19 25 12/17/2024 COMP. METAB OLIC PANEL (14) sodium 141 mmol/ L 134-14 4 Not Available [facility] ([facility]) [address], [place], [address], 12/17/2024 07:14:39 12/17/19 25 12/17/2024 COMP. METAB OLIC PANEL (14) potassium 4.4 mmol/ L 3.5-5. 2 Not Available [facility] ([facility]) [address] [place], [address], 12/17/2024 07:14:39 12/17/19 25 12/17/2024 COMP. METAB OLIC PANEL (14) chloride 104 mmol/ L 96-106 Not Available [facility] ([facility]) [address] [place], [address], 12/17/2024 07:14:39 12/17/19 25 12/17/2024 COMP. METAB OLIC PANEL (14) carbon dioxide, total 22 mmol/ L 20-29 Not Available [facility] ([facility]) [address] [facility] [place], [address], 12/17/2024 07:14:39 12/17/19 25 12/17/2024 COMP. METAB OLIC PANEL (14) calcium 9.5 mg/dL 8.6-10 .2 Not Available [facility] ([facility]) [address] [facility], [place], [address], 12/17/2024 07:14:39 12/17/19 25 12/17/2024 COMP. METAB OLIC PANEL (14) protein, total 6.6 g/dL 6.0-8. 5 Not Available [facility] ([facility]) [address] [place], [address], 12/17/2024 07:14:39 12/17/19 25 12/17/2024 COMP. METAB OLIC PANEL (14) albumin 4.3 g/dL 3.9-4. 9 Not Available [facility] ([facility]) [address] [place], [address], 12/17/2024 07:14:39 12/17/19 25 12/17/2024 COMP. METAB OLIC PANEL (14) globulin, total 2.3 g/dL 1.5-4. 5 Not Available [facility] ([facility]) [address] [place], [address], 12/17/2024 07:14:39 12/17/1912/17/2024 COMP. METAB OLIC PANEL (14) bilirubin, total 0.3 mg/dL 0.0-1. 2 Not Available [facility] ([facility]) [address] [place], [address], 12/17/2024 07:14:39 12/17/19 25 12/17/2024 COMP. METAB OLIC PANEL (14) alkaline phosphatase 81 IU/L 44-121 Eff ectiv e Septe mber 2024 Alkal ine Phosp hatas e refer ence inter jose guadalupe will be martinez ing to: Age Male Femal e 0 - 5 days 47 - 127 47 - 127 6 - 10 days 29 - 242 29 - 242 11 - 20 days 109 - 357 109 - 357 21 - 30 days 94 - 494 94 - 494 1 - 2 month s 149 - 539 149 - 539 3 - 6 month s 131 - 452 131 - 452 7 - 11 month s 117 - 401 117 - 401 12 month s - 6 years 158 - 369 158 - 369 7 - 12 years 150 - 409 150 - 409 13 years 156 - 435 78 - 227 14 years 114 - 375 64 - 161 15 years 88 - 279 56 - 134 16 years 74 - 207 51 - 121 17 years 63 - 161 47 - 113 18 - 20 years 51 - 125 42 - 106 21 - 50 years 47 - 123 41 - 116 51 - 80 years 49 - 135 51 - 125 >80 years 48 - 129 48 - 129 Not Available [facility] ([facility]) [address] [place], [address], 12/17/2024 07:14:39 12/17/19 25 12/17/2024 COMP. METAB OLIC PANEL (14) AST (SGOT) 17 IU/L 0-40 Not Available [facility] ([facility]) [address] [place], [address], 12/17/2024 07:14:39 12/17/19 25 12/17/2024 COMP. METAB OLIC PANEL (14) ALT (SGPT) 13 IU/L 0-44 Not Available [facility] ([facility]) [address] [place], [address], 12/17/2024 07:14:39 12/17/19 25 12/17/2024 CBC WITH DIFFE RENTI AL/PL ATELE T WBC 8.6 x10e3 /uL 3.4-10 .8 Not Available [facility] ([facility]) [address] [place], [address], 12/17/2024 07:14:39 12/17/19 25 12/17/2024 CBC WITH DIFFE RENTI AL/PL ATELE T RBC 4.62 x10e6 /uL 4.14-5 .80 Not Available [facility] ([facility]) [address] [facility], [place], [address], 12/17/2024 07:14:39 12/17/19 25 12/17/2024 CBC WITH DIFFE RENTI AL/PL ATELE T hemoglobin 14.7 g/dL 13.0-1 7.7 Not Available [facility] ([facility]) [address] [facility], [place], [address], 12/17/2024 07:14:39 12/17/19 25 12/17/2024 CBC WITH DIFFE RENTI AL/PL ATELE T hematocrit 44.2 % 37.5-5 1.0 Not Available [facility] ([facility]) [address] [facility], [place], [address], 12/17/2024 07:14:39 12/17/19 25 12/17/2024 CBC WITH DIFFE RENTI AL/PL ATELE T MCV 96 fL 79-97 Not Available [facility] ([facility]) [address] [place], [address], 12/17/2024 07:14:39 12/17/19 25 12/17/2024 CBC WITH DIFFE RENTI AL/PL ATELE T MCH 31.8 pg 26.6-3 3.0 Not Available [facility] ([facility]) [address] [place], [address], 12/17/2024 07:14:39 12/17/19 25 12/17/2024 CBC WITH DIFFE RENTI AL/PL ATELE T MCHC 33.3 g/dL 31.5-3 5.7 Not Available [facility] ([facility]) [address] [place], [address], 12/17/2024 07:14:39 12/17/19 25 12/17/2024 CBC WITH DIFFE RENTI AL/PL ATELE T RDW 12.5 % 11.6-1 5.4 Not Available [facility] ([facility]) [address] [facility], [place], [address], 12/17/2024 07:14:39 12/17/19 25 12/17/2024 CBC WITH DIFFE RENTI AL/PL ATELE T platelets 287 x10e3 /uL 150-45 0 Not Available [facility] ([facility]) [address] [facility], [place], [address], 12/17/2024 07:14:39 12/17/19 25 12/17/2024 CBC WITH DIFFE RENTI AL/PL ATELE T neutrophils 58 % notest ab. Not Available [facility] ([facility]) [address] [facility], [place], [address], 12/17/2024 07:14:39 12/17/19 25 12/17/2024 CBC WITH DIFFE RENTI AL/PL ATELE T lymphs 26 % notest ab. Not Available [facility] ([facility]) [address] [facility], [place], [address], 12/17/2024 07:14:39 12/17/19 25 12/17/2024 CBC WITH DIFFE RENTI AL/PL ATELE T monocytes 11 % notest ab. Not Available [facility] ([facility]) [address] [facility], [place], [address], 12/17/2024 07:14:39 12/17/19 25 12/17/2024 CBC WITH DIFFE RENTI AL/PL ATELE T eos 4 % notest ab. Not Available [facility] ([facility]) [address] [facility], [place], [address], 12/17/2024 07:14:39 12/17/19 25 12/17/2024 CBC WITH DIFFE RENTI AL/PL ATELE T basos 1 % notest ab. Not Available [facility] ([facility]) [address] [facility], [place], [address], 12/17/2024 07:14:39 12/17/19 25 12/17/2024 CBC WITH DIFFE RENTI AL/PL ATELE T neutrophils (absolute) 5.0 x10e3 /uL 1.4-7. 0 Not Available [facility] ([facility]) [address] [facility], [place], [address], 12/17/2024 07:14:39 12/17/19 25 12/17/2024 CBC WITH DIFFE RENTI AL/PL ATELE T lymphs (absolute) 2.2 x10e3 /uL 0.7-3. 1 Not Available [facility] ([facility]) [address] [facility], [place], [address], 12/17/2024 07:14:39 12/17/19 25 12/17/2024 CBC WITH DIFFE RENTI AL/PL ATELE T monocytes(ab solute) 0.9 x10e3 /uL 0.1-0. 9 Not Available [facility] ([facility]) [address] [facility], [place], [address], 12/17/2024 07:14:39 12/17/1912/17/2024 CBC WITH DIFFE RENTI AL/PL ATELE T eos (absolute) 0.3 x10e3 /uL 0.0-0. 4 Not Available [facility] ([facility]) [address] [facility], [place], [address], 12/17/2024 07:14:39 12/17/1912/17/2024 CBC WITH DIFFE RENTI AL/PL ATELE T baso (absolute) 0.1 x10e3 /uL 0.0-0. 2 Not Available [facility] ([facility]) [address] [place], [address], 12/17/2024 07:14:39 12/17/19 25 12/17/2024 CBC WITH DIFFE RENTI AL/PL ATELE T immature granulocytes 0 % notest ab. Not Available [facility] ([facility]) [address], [place], [address], 12/17/2024 07:14:39 12/17/19 25 12/17/2024 CBC WITH DIFFE RENTI AL/PL ATELE T immature ary (abs) 0.0 x10e3 /uL 0.0-0. 1 Not Available [facility] ([facility]) [address] [facility], [place], [address], 12/17/2024 07:14:39 03/24/20 24 03/24/2024 LDCT, chest , for lung cance r scree bob No observ ation record ed. [facility] [address], [place], [address], 04/07/2024 13:59:10 06/27/19 elect rocar diogr am No observ ation record ed. [place] [facility] Order Internal Use Only DO Not Attach Compendium DO Not Attach Compendium, Do Not Delete/merge, [id number] 06/26/2024 13:12:28 06/27/19 25 06/26/2024 elect rocar diogr am No observ ation record ed. [place] In-Office Order Internal Use Only DO Not Attach Compendium DO Not Attach Compendium, Do Not Delete/merge, [id number] 06/26/2024 14:13:27 07/21/19 25 07/20/2024 , [facility] ardio gram No observ ation record ed. [facility] [address], [place], [address], 07/21/2024 17:15:58 Result Notes None recorded. Problems Name Problem SNOMED Code Status Onset Date Resolution Date Notes Provider Name and Address Organization Details Recorded Time Hyperlipide octavia 39284761 Active 2023 Adri London MD Attn: Mary camelia,[address], [place], [address], [place] [facility] 22:24:26 Chronic obstructive pulmonary disease 07546588 Active 2023 Adri London MD Attn: Mary denise,[address] [facility], [place], [address], [place] [facility] 4 22:24:27 Peripheral arterial occlusive disease 346645310 Active 2023 Adri London MD Attn: Mary denise,[address] [facility], [place], [address], [place] [facility] 4 22:24:28 Anxiety 05259173 Active 2023 Adri London MD Attn: Mary denise,[address] [facility], [place], [address], [place] - [facility] 4 22:24:30 Essential hypertensio n 40606429 Active 2023 Adri London MD Attn: Mray denise,[address] [facility], [place], [address], [place] [facility] 4 22:24:43 Tobacco dependence syndrome 42116277 Active 2023 Adri London MD Attn: Mary denise,[address] [facility], [place], [address], [place] [facility] 4 22:24:44 Screening for malignant neoplasm of prostate Active 2023 Rasta Schmidt MA null, [place] [facility] 4 15:05:26 Neck pain 33789420 Active 2023 Rasta Schmidt [place], [place] [facility] 4 15:05:27 Cellulitis of left lower limb [id number] 9109 Active 2024 Rasta Schmidt MA null, [place] [facility] 5 15:10:28 Problem Notes None recorded. Procedures Surgical History Date Name Laterality Status Provider Name and Address Organization Details Recorded Time Angioplasty With Stent completed RADHA Infante - [facility] 06/27/2023 15:47:14 Imaging Results None recorded. Procedure Notes None recorded. Medical Equipment None [...] Take 1 tablet by mouth once daily 2024 active Not Available Not Available Not Avai lable lisinopril 20 mg tablet Take 1 tablet by mouth once daily active Not Available Not Available No t Available prednisone 20 mg tablet TAKE 2 TABLETS BY MOUTH ONCE DAILY FOR 7 DAYS 10/21 completed Not Available Not Available Not Available clopidogrel 75 mg tablet Take 1 tablet by mouth once daily 2024 active Not Available Not Available Not Avai lable tamsulosin 0.4 mg capsule TAKE 1 CAPSULE BY MOUTH ONCE DAILY AT BEDTIME 10/21 completed Not Available Not Available Not Available albuterol sulfate HFA 90 mcg/actuati on aerosol inhaler inhale 2 puffs every 4hrs by inhalatio n route 02/13 completed Not Available Not Available Not Available lisinopril 40 mg tablet Take 1 tablet by mouth once daily 2024 active Not Available Not Available Not Avai lable sertraline 50 mg tablet Take 1 tablet by mouth once daily 2024 active Not Available Not Available Not Avai lable Centrum Silver active Not Available Not Available Not Available ProAir RespiClick 90 mcg/actuati on breath activated INHALE 2 PUFFS BY MOUTH EVERY 4 HOURS active Not Available Not Available No t Available albuterol sulf 90 mcg/actuati on breath activated powder inhaler,sen sor Inhale 2 puff(s) every 4 hours by inhalatio n route. 02/13 completed Not Available Not Available Not Available Breztri Aerosphere 160 mcg-9mcg-4. 8mcg/actuat ion HFA aerosol inhaler INHALE 2 PUFFS TWICE DAILY 2024 active Not Available Not Available Not Avai lable Vitals Date Recorded Body height Body mass index (BMI) Body weight Heart rate Oxygen saturation Systolic And Diastolic Provider Name and Address Organization Details Last Updated DateTime 180.34 cm 25.5 kg/m2 27717.7 6 g 42 /min 96 % 164/96 mm[Hg] Kailee Gant MA [facility] 5 11:10:33 Date Recorded Heart rate Systolic And Diastolic Provider Name and Address Organization Details Last Updated DateTime 06/26/2024 62 /min 140/72 mm[Hg] Caroline Andrews MA [facility] 0 06/26/2024 11:40:22 Date Recorded Body height Body mass index (BMI) Body weight Heart rate Oxygen saturation Systolic And Diastolic Provider Name and Address Organization Details Last Updated DateTime 5 180.34 cm 25.6 kg/m2 38133.9 2 g 71 /min 97 % 144/72 mm[Hg] Eliza RADHA Nguyen [facility] 5 12:16:52 Date Recorded Body height Body mass index (BMI) Body weight Heart rate Oxygen saturation Systolic And Diastolic Provider Name and Address Organization Details Last Updated DateTime 5 180.34 cm 24.5 kg/m2 42627.4 6 g 74 /min 96 % 140/70 mm[Hg] Eliza Nguyen MA [facility] 5 14:24:06 Date Recorded Body height Body mass index (BMI) Body weight Heart rate Oxygen saturation Systolic And Diastolic Provider Name and Address Organization Details Last Updated DateTime 4 180.34 cm 25.3 kg/m2 89879.3 7 g 68 /min 98 % 138/70 mm[Hg] Caroline Andrews MA [facility] 4 11:11:14 Date Recorded Pain severity - 0-10 verbal numeric rating [Score] - Reported Provider Name and Address Organization Details Last Updated DateTime 02/21/2024 0 Alexus Rod [facility] 02/21/2024 11:47:28 Date Recorded Body height Body mass index (BMI) Body weight Heart rate Oxygen saturation Systolic And Diastolic Provider Name and Address Organization Details Last Updated DateTime 4 180.34 cm 25.4 kg/m2 69528.8 1 g 64 /min 97 % 136/64 mm[Hg] Eliza RADHA Nguyen [facility] 4 11:45:37 Social History Question Answer Notes LastModified by Organizat ion Details LastModified Time Tobacco Smoking Status Current Every Day Smoker Chloe Jeffers MA [facility] [place] [facility] 06/27/2023 15:46:54 Do You Have An Advance Directive? No Information not available 02/14/2024 Are You Blind Or Do You Have [...] No Information not available 02/14/2024 Are You Deaf Or Do You Have Serious Difficulty Hearing? No Information not available 02/14/2024 What Type Of Diet Are You Following? REGULAR Information not available 02/14/2024 What Is The Highest Grade Or Level Of School You Have Completed Or The Highest Degree You Have Received? [id number] Information not available 02/21/2024 Are There Any Guns Present In Your Home? No Information not available 02/21/2024 In The Past 7 Days, How Many Days Did You Exercise? 0 No Exercise Regime But Patient Stays Active Information not available 02/21/2024 In The Past 7 Days, How Much Pain Have You Robinson? None Information not available 02/21/2024 In General, [...] Past 7 Days, How Often Have You Robinson Sleepy In The Daytime? Never Information not available 02/21/2024 # Alcohol Drinks Per Week 0 Information not available 02/21/2024 What Was The Date Of Your Most Recent Tobacco Screening? 12/16/2024 Information not available 12/16/2024 What Is Your Current Pack Years? 30ormorepack [...] PPD Information not available 06/27/2023 Do You Use Sunscreen Routinely? No Information not available 02/21/2024 Has Tobacco Cessation Counseling Been Provided? Yes Information not available 06/27/2023 On What Date Was Tobacco Cessation Counseling Provided? 12/16/2024 Information not available 12/16/2024 How Many Years Have You Smoked Tobacco? 50 Information not available 06/27/2023 Sex: Male Functional Status Question Answer Note LastModified by Organizat ion Details LastModified Time Do you use any illicit or recreational drugs? No Information not available 06/27/2023 Do you or have you ever used any other forms of tobacco or nicotine? No Information not available 02/21/2024 What is your level of alcohol consumption? None Information not available 06/27/2023 Are you currently employed? Yes Information not available 02/21/2024 Are you able to care for yourself independently? 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 Moderate active lifestyle Information not available 02/21/2024 Mental Status Question Answer Note LastModified by Organization D etails LastModified Time Do you feel stressed (tense, restless, nervous, or anxious, or unable to sleep at night)? [id number] Information not available 02/21/2024 Family History Relationship Description Onset Age of this Age Resolved Age Notes LastModified by Organization Details LastModified Time Mother Malignant neoplasm of breast [email or web address] Not available 2023 15:46:30 Medical History Condition Response Coronary Artery Disease N Other N Atrial Fibrillation N High Blood Pressure Y Depression Y COPD Y Blood Clots Y Anxiety Disorder Y Muscle, Joint, or Bone Problems Y Acid Reflux (GERD) N Cancer Y Stroke N High Cholesterol Y Liver Disease N Headaches N Kidney or Bladder Problems N Thyroid Problems N GI Problems N Have you had a mammogram in the last yea r? N Skin Problems N Anemia N Heart Attack ([place]) N Diabetes N Seizures/Epilepsy N Have you had a colonoscopy in the last 1 0 years? N Asthma N Allergies N Have you had a PSA blood test in the las t year? Y Hepatitis N Heart Failure N Osteoporosis N Immunizations Vaccine Type Date Status Note Provider Nam e and Address Organization Details Recorded Time Influenza, MDCK, quadrivalent, PF 0 completed RADHA [place], [place] - [facility] 06/27/2023 15:48:25 COVID-19 vaccine, vector-nr, rS-Ad26, PF, 0.5 mL 1 [place] RAD[place] [facility] 06/27/2023 15:48:25 COVID-19 vaccine, vector-nr, rS-Ad26, PF, 0.5 mL 1 completed RADHA [place] [facility] 06/27/2023 15:48:25 COVID-19, mRNA, [...] split virus, quadrivalent, PF 1 completed Chloe Jeffers [place] null, [place] [facility] 06/27/2023 15:48:25 Influenza, split virus, quadrivalent, PF 8 completed Chloe Jeff[place] [facility] 06/27/2023 15:48:25 Influenza, split virus, quadrivalent, PF 7 completed Chloe Jeff[place] [facility] 06/27/2023 15:48:25 COVID-19, mRNA, LNP-S, PF, tashi-sucrose, 30 mcg/0.3 mL 4 completed RADHA [place] [facility] 02/14/2024 12:08:44 Influenza, high-dose, trivalent, PF 4 completed RADHA [place] [facility] 02/14/2024 12:08:44 Pneumococcal conjugate PCV21, polysaccharide [id number] conjugate, PF 4 completed Not Available [facility] 12/16/2024 14:05:21 Pneumococcal conjugate PCV20, polysaccharide [id number] conjugate, adjuvant, PF 4 completed Adri London MD Attn: Accounting[address] [place], [address], [facility] - [facility] 10/22/2023 23:20:41 Past Encounters Encounter ID Performer Location Encounter Start Date Encounter Closed Date Diagnosis/Indication Diagnosis SNOMED-CT Code Diagnosis ICD10 Code Diagnosis IMO Codes Diagnosis Note [id number] Adri London MD [facility] (Adult Med) [address] [place] [phone] 06/27/2023 15:14:21 06/27/2023 16:24:33 Hyperlipidemia 69605173 E78.5 Chronic ob structive pulmonary disease 65497681 J44.9 Peripheral arterial occlusive disease 580306731 I73.9 Anxiety 04365404 F41.9 Essential hypertension 41013205 I10 Tobacco de pendence syndrome 74436392 F17.574 [id number] Adri London MD [facility] (Adult Med) [address] [place] [phone] 0 10/22/2023 13:54:44 10/22/2023 15:15:00 Lesion of right external ear canal 3521730241 087689 H61.91 Essential hypertension 84928141 I10 Neck pain 15028550 M54.2 Screening for malignant neoplasm of prostate 958149102 Z12.5 Administra tion of pneumococcal vaccine 75081664 Z23 Hyperlipidemia 83349035 E78.5 Chronic ob structive pulmonary disease 77507446 J44.9 Anxiety 31008174 F41.9 [id number] Adri London MD [facility] (Adult Med) [address] [place] [address] 98530-857 0 02/14/2024 10:40:35 02/14/2024 12:07:56 Body mass index 25-29 - overweight 644840405 Z68.25 Overweight 273404225 E66 .3 Screening for malignant neoplasm of colon 458348279 Z12.11 Chronic ob structive pulmonary disease 02520000 J44.9 Anxiety 09410939 F41.9 Essential hypertension 34371156 I10 Hyperlipidemia 65178662 E78.5 Peripheral arterial occlusive disease 952366744 I73.9 [id number] Adri London MD [facility] (Adult Med) [address] [place] [phone] 0 02/21/2024 11:26:31 02/21/2024 12:56:25 Adult health examination 216626514 Z00.00 Health Risk Assessment collected and reviewed Nicotine dependence 5629 4008 F17.950 [id number] Adri London MD [facility] (Adult Med) [address] [place] [phone] 06/26/2024 10:49:01 06/26/2024 11:40:55 Essential hypertension 89876492 I10 Hypertensive disorder 38 413557 I10 Chronic ob structive pulmonary disease 82169685 J44.9 Peripheral arterial occlusive disease 046189212 I73.9 Hyperlipidemia 30206838 E78.5 Anxiety 47262801 F41.9 Tobacco de pendence syndrome 74112315 F17.537 [id number] MD [facility] (Adult Med) [address] [place] [address] 08/14/2024 12:03:59 08/14/2024 13:20:16 Cigarette smoker 84858745 F17.210 [id number] Smoker 83266716 F17.200 Overweight in adulthood with body mass index of 25 or more but less than 30 981267723 E66.3 Z68.25 2280797143 Overweight 504486367 E66 .3 Skin lesion 23347111 L98 .9 06360 Essential hypertension 71138687 I10 [id number] Adri London MD [facility] (Adult Med) [address] [place] [address] 12/16/2024 14:03:03 12/16/2024 15:50:06 Smoker 00184564 F17.200 Normal weight 70162256 Z 68.24 0060273228 BMI 24.5 Chronic ob structive pulmonary disease 37099685 J44.9 Peripheral arterial occlusive disease 363343795 I73.9 Anxiety 70456010 F41.9 Hyperlipidemia 28809099 E78.5 Essential hypertension 26801291 I10 Health Concerns Section Related Observation LastModified by Organization Detai ls LastModified Time None Recorded Concern Status LastModified by Organization Details LastModified Time None Recorded Advance Directives Directive N: Payers Insurance Date Sequence Insurance Name Policy Number Policy Auguste Covered Member ID Auguste Member ID Guarantor Name 12/14/2024 [place] [facility] Vinny Kim [id number] Vinny Kim 12/14/2024 2 [place] [id number] Vinny Kim [id number] Vinny Kim 08/14/2024 2 [place] 111 Vinny Kim [id number] Vinny Kim 12/14/2024 1 [place] Vinny Kim [id number] Vinny Kim Notes Date Note Type Note Provider Name and Address Organization Details Recorded Time 02/14/2024 text/html peripheral arterial occlusive disease no claudication but he continues [...] MD Attn: Accounting,[address], [place], [address], [place] [facility] 02/15/2024 17:21:22 02/21/2024 text/html MAW 2Reported by PatientSocial/Behavi oral HistoryFor fracture risk, patient reportshistory of fracturesbut reportsno sudden unexplained fractures. For diet and nutrition, patient reportshealthy diet.Mental Status:For concentration and memory, patient reportsno decreased concentrating ability,no memory lapses or loss, anddoes not forget words. For speech/motor difficulties, patient reportsno speech difficulties,no difficulty expressing formulated concepts,no difficulty with fine manipulative tasks,no difficulty writing/copying,no slowed reaction time, anddoes not knock things over when trying to pick them up.Functional AbilityFor hearing, patient reportsloss of hearing: in both ears. For vision, patient reportsworse with distance (glasses). For activities of daily living, patient reportsable to bathe with limited or no assistance,able to contol urination and bowels,able to dress with limited or no assistance,able to feed self with limited or no assistance,able to get out of chair or bed with limited or no assistance,able to groom with limited or no assistance, andable to toilet with limited or no assistance. For instrumental activities of daily living, patient reportsable to do house work with limited or no assistance,able to grocery shop with limited or no assistance,able to manage medications with limited or no assistance,able to manage money with limited or no assistance,able to prepare meals with limited or no assistance, andable to use the phone with limited or no assistance. For falls risk assessment, patient reportsno frequent falls while walking,no fall in the past year,no fall since last visit, andno dizziness/vertigo. For home safety, patient reportsno unsafe herson hazzards,no unsafe stairs,working smoke/co detectors,practicing 'safer sex',no fire arms,has hand bars in the bathroom/shower,good lighting in the home, andreviewed sun protection. Adri London MD Attn: Accounting[address] [facility], [place], [address], [facility] - [facility] 02/21/2024 21:45:31 06/26/2024 text/html he is still smoking no plans to quit hypertension no chest pain PND or orthopnea peripheral arterial disease he has not had any claudication anxiety has been up a little bit he has been diagnosed with prostate cancer and is going through some therapy with regards to the COPD no cough or wheezing but he continues to smoke Adri London MD Attn: Accounting[address] [facility], [place], [address], [facility] - [facility] 06/27/2024 15:34:07 08/14/2024 text/html Short interval follow up on blood pressure doing better Adri London MD Attn: Accounting, [address] [facility], [place], [address], [facility] - [facility] 08/29/2024 22:06:15 12/16/2024 text/html peripheral arterial occlusive disease having some pain in the right anterolateral thigh but he continues to smoke. Smoker not interested in quitting. Hypertension no headache or dizziness. COPD maintained on albuterol he uses it sparingly. Anxiety sertraline doing well no SI HI or side effects. Interval history diagnosed with prostate cancer active surveillance. Hyperlipidemia his diet is pretty good and he is tolerating his atorvastatin Adri London MD Attn: Accounting, [address] [facility], [place], [address], [place] - [facility] 12/16/2024 22:10:50
--- OUTSIDE RECORDS SUMMARY | 2025-03-05 08:37 | XMS_ITS | Data Portability ---
Author Organization [place] - [facility] [place], Main Office Address [address] [place] [address] Assessment Encounter Date Assessment Date Assessment LastModified by Organization Details LastModified Time 08/08/2022 08/08/2022 Smoking cessation highly recommended but he is not interested at this time chronic medical problems have been discussed blood work has been ordered sertraline 50 mg a day is been started follow-up in 6 weeks Not available 08/19/2022 14:41:05 10/04/2022 10/04/2022 Warned of the ill effects of tobacco which included but not limited to increased tumors of aerodigestive tract increase incidence of heart attack stroke and cancer that can lead to sudden or chronic medical illness. Continue current therapy. Blood work has been ordered. [email or web address] Not available 10/16/2022 22:08:11 03/27/2023 03/27/2023 Doxycycline him prednisone smoking cessation discussed and is imperative we discussed strategies but it does not sound like he is moving in that direction other diagnosis in assessment and plan have been discussed follow-up 4 months [email or web address] Not available 04/15/2023 21:24:33 Plan of Treatment Reminders Order Date Submit Date Provider Last Modified By Organization Details Last Modified Time Details Appointments None recorded. Lab CBC w/ auto diff 2022 023 [facility] (Lab), [address] [place], [address], 12:43:32 CMP, serum or plasma 2022 023 [facility] (Lab), [address] [place], [address], 3 14:36:28 lipid panel, serum 2022 023 [facility] (Lab), [address] [place], [address], 3 14:36:30 CBC w/ auto diff 2022 023 [facility] (Lab), [address] [place], [address], 3 12:21:03 lipid panel, serum 2022 023 [facility] (Lab), [address] [place], [address], 3 09:18:34 CMP, serum or plasma 2022 023 [facility] (Lab), [address] [place], [address], 3 12:30:18 Referral None recorded. Procedures None recorded. Surgeries None recorded. Imaging None recorded. Medication Orders doxycycline hyclate 100 mg capsule [address] [facility], [address] [place] [address], [address], 3 17:48:12 prednisone 20 mg tablet [address] [facility], [address] [place] [address], [address], 4 21:23:04 sertraline 50 mg tablet 2022 [email or web address] [place] [address] Pharmacy [facility], [address] [place] [address], [address], 3 16:09:40 Patient TargetsNo targets recorded. Patient InstructionsNo instructions recorded. Reason for Referral None Reported. Results Created Date Observation Date Name Description Value Unit Range Abnormal Flag Note LastModifiedBy Organization Detail LastModifiedTime 04/05/20 22 04/05/2022 CBC/C OMPLE TE BLD COUNT W/DIF F white blood cells 7.0 x10'3 /uL 4.2-10 .8 Not Available [facility] (Lab) [address] [place], [address], 04/05/2022 14:27:56 04/05/20 22 04/05/2022 CBC/C OMPLE TE BLD COUNT W/DIF F red blood cells 4.95 x10'6 /uL 4.10-5 .80 Not Available [facility] (Lab) [address] [place], [address], 04/05/2022 14:27:56 04/05/20 22 04/05/2022 CBC/C OMPLE TE BLD COUNT W/DIF F hemoglobin 15.6 g/dL 13.2-1 7.0 Not Available [facility] (Lab) [address] [place], [address], 04/05/2022 14:27:56 04/05/20 22 04/05/2022 CBC/C OMPLE TE BLD COUNT W/DIF F hematocrit 47.6 % 39.3-5 0.0 Not Available [facility] (Lab) [address] [place], [address], 04/05/2022 14:27:56 04/05/20 22 04/05/2022 CBC/C OMPLE TE BLD COUNT W/DIF F mean red cell volume 96.2 fL 80.0-9 7.0 Not Available [facility] (Lab) [address] [place], [address], 04/05/2022 14:27:56 04/05/20 22 04/05/2022 CBC/C OMPLE TE BLD COUNT W/DIF F mean red cell hemoglobin 31.5 pg 27.0-3 3.0 Not Available [facility] (Lab) [address] [place], [address], 04/05/2022 14:27:56 04/05/20 22 04/05/2022 CBC/C OMPLE TE BLD COUNT W/DIF F mean RBC HGB concentratio n 32.8 g/dL 31.0-3 6.0 Not Available [facility] (Lab) [address] [place], [address], 04/05/2022 14:27:56 04/05/20 22 04/05/2022 CBC/C OMPLE TE BLD COUNT W/DIF F red cell distribution width 13.2 % 11.8-1 5.5 Not Available [facility] (Lab) [address] [place], [address], 04/05/2022 14:27:56 04/05/20 22 04/05/2022 CBC/C OMPLE TE BLD COUNT W/DIF F platelets 256 x10'3 /uL 150-40 0 Not Available [facility] (Lab) [address] [place], [address], 04/05/2022 14:27:56 04/05/20 22 04/05/2022 CBC/C OMPLE TE BLD COUNT W/DIF F mean platelet volume 9.6 fL 9.0-12 .4 Not Available [facility] (Lab) [address] [place], [address], 04/05/2022 14:27:56 04/05/20 22 04/05/2022 CBC/C OMPLE TE BLD COUNT W/DIF F neutrophils 57.8 % 39.0-7 2.0 Not Available [facility] (Lab) [address] [place], [address], 04/05/2022 14:27:56 04/05/20 22 04/05/2022 CBC/C OMPLE TE BLD COUNT W/DIF F lymphocytes 30.8 % 16.0-4 7.0 Not Available [facility] (Lab) [address] [place], [address], 04/05/2022 14:27:56 04/05/20 22 04/05/2022 CBC/C OMPLE TE BLD COUNT W/DIF F monocytes 8.9 % 5.0-12 .0 Not Available [facility] (Lab) [address] [place], [address], 04/05/2022 14:27:56 04/05/20 22 04/05/2022 CBC/C OMPLE TE BLD COUNT W/DIF F eosinophils 1.4 % 1.0-7. 0 Not Available [facility] (Lab) [address] [place], [address], 04/05/2022 14:27:56 04/05/20 22 04/05/2022 CBC/C OMPLE TE BLD COUNT W/DIF F basophils 1.0 % 0.0-2. 0 Not Available [facility] (Lab) [address] [place], [address], 04/05/2022 14:27:56 04/05/20 22 04/05/2022 CBC/C OMPLE TE BLD COUNT W/DIF F immature granulocytes 0.1 % 0.00-0 .50 Not Available [facility] (Lab) [address] [place], [address], 04/05/2022 14:27:56 04/05/20 22 04/05/2022 CBC/C OMPLE TE BLD COUNT W/DIF F neutrophils, absolute count 4.01 x10'3 /uL 1.5-8. 0 Not Available [facility] (Lab) [address] [place], [address], 04/05/2022 14:27:56 04/05/20 22 04/05/2022 CBC/C OMPLE TE BLD COUNT W/DIF F lymphocytes, absolute count 2.14 x10'3 /uL 1.07-3 .43 Not Available [facility] (Lab) [address] [place], [address], 04/05/2022 14:27:56 04/05/20 22 04/05/2022 CBC/C OMPLE TE BLD COUNT W/DIF F monocytes, absolute count 0.62 x10'3 /uL 0.29-0 .99 Not Available [facility] (Lab) [address] [place], [address], 04/05/2022 14:27:56 04/05/20 22 04/05/2022 CBC/C OMPLE TE BLD COUNT W/DIF F eosinophils, absolute count 0.10 x10'3 /uL 0.02-0 .53 Not Available [facility] (Lab) [address] [place], [address], 04/05/2022 14:27:56 04/05/20 22 04/05/2022 CBC/C OMPLE TE BLD COUNT W/DIF F basophils, absolute count 0.07 x10'3 /uL 0.01-0 .08 Not Available [facility] (Lab) [address] [place], [address], 04/05/2022 14:27:56 04/05/20 22 04/05/2022 CBC/C OMPLE TE BLD COUNT W/DIF F immature granulocytes ,absolute 0.01 x10'3 /uL 0.00-0 .05 Not Available [facility] (Lab) [address] [place], [address], 04/05/2022 14:27:56 04/05/20 22 04/05/2022 CBC/C OMPLE TE BLD COUNT W/DIF F nucleated red blood cells 0.0 % -0 Not Available [facility] (Lab) [address] [place], [address], 04/05/2022 14:27:56 04/05/20 22 04/05/2022 CBC/C OMPLE TE BLD COUNT W/DIF F NRBC# 0.00 x10'3 /uL Not Available [facility] (Lab) [address] [place], [address], 04/05/2022 14:27:56 04/05/20 22 04/05/2022 PSA SCREE N PSA medicare screen 3.11 NG/mL 0.00-4 .00 Not Available [facility] (Lab) [address] [place], [address], 04/05/2022 14:03:13 04/05/20 22 04/05/2022 COMPR EHENS SHELLY METAB OLIC PANEL sodium 139 mmol/ L 137-14 5 Not Available [facility] (Lab) [address] [place], [address], 04/05/2022 13:45:17 04/05/20 22 04/05/2022 COMPR EHENS SHELLY METAB OLIC PANEL potassium 4.4 mmol/ L 3.5-5. 1 Not Available [facility] (Lab) [address] [place], [address], 04/05/2022 13:45:17 04/05/20 22 04/05/2022 COMPR EHENS SHELLY METAB OLIC PANEL chloride 105 mmol/ L 98-107 Not Available [facility] (Lab) [address] [place], [address], 04/05/2022 13:45:17 04/05/20 22 04/05/2022 COMPR EHENS SHELLY METAB OLIC PANEL carbon dioxide 27 mmol/ L 22-30 Not Available [facility] (Lab) [address] [place], [address], 04/05/2022 13:45:17 04/05/20 22 04/05/2022 COMPR EHENS SHELLY METAB OLIC PANEL anion gap 11.4 mmol/ L 14- low Not Available [facility] (Lab) [address] [place], [address], 04/05/2022 13:45:17 04/05/20 22 04/05/2022 COMPR EHENS SHELLY METAB OLIC PANEL glucose 93 mg/dL 70-99 Not Available [facility] (Lab) [address] [place], [address], 04/05/2022 13:45:17 04/05/20 22 04/05/2022 COMPR EHENS SHELLY METAB OLIC PANEL BUN 15 mg/dL 8-19 Not Available [facility] (Lab) [address] [place], [address], 04/05/2022 13:45:17 04/05/20 22 04/05/2022 COMPR EHENS SHELLY METAB OLIC PANEL creatinine 0.97 mg/dL 0.66-1 .25 Not Available [facility] (Lab) [address] [place], [address], 04/05/2022 13:45:17 04/05/20 22 04/05/2022 COMPR EHENS SHELLY METAB OLIC PANEL GFR >60 Refer ence Range : [place] GFR Healt hy Adult : >60 [...] calcu lator is avail able on the F websi te: https :[email or web address] rg/pr ofess ional s/kdo qi/gf r_cal culat or Not Available [facility] (Lab) [address] [place], [address], 04/05/2022 13:45:17 04/05/20 22 04/05/2022 COMPR EHENS SHELLY METAB OLIC PANEL alkaline phosphatase 81 U/L 38-126 Not Available [facility] (Lab) [address] [place], [address], 04/05/2022 13:45:17 04/05/20 22 04/05/2022 COMPR EHENS SHELLY METAB OLIC PANEL alanine aminotransfe rase 28 U/L 0-50 Not Available [facility] (Lab) [address] [place], [address], 04/05/2022 13:45:17 04/05/20 22 04/05/2022 COMPR EHENS SHELLY METAB OLIC PANEL aspartate aminotransfe rase 31 U/L 15-46 Not Available [facility] (Lab) [address] [place], [address], 04/05/2022 13:45:17 04/05/20 22 04/05/2022 COMPR EHENS SHELLY METAB OLIC PANEL bilirubin, total 0.80 mg/dL 0.20-1 .30 Not Available [facility] (Lab) [address] [place], [address], 04/05/2022 13:45:17 04/05/20 22 04/05/2022 COMPR EHENS SHELLY METAB OLIC PANEL calcium 9.9 mg/dL 8.4-10 .2 Not Available [facility] (Lab) [address] [place], [address], 04/05/2022 13:45:17 04/05/20 22 04/05/2022 COMPR EHENS SHELLY METAB OLIC PANEL total protein 7.2 g/dL 6.3-8. 2 Not Available [facility] (Lab) [address] [place], [address], 04/05/2022 13:45:17 04/05/20 22 04/05/2022 COMPR EHENS SHELLY METAB OLIC PANEL albumin 4.5 g/dL 3.0-4. 4 high Not Available [facility] (Lab) [address] [place], [address], 04/05/2022 13:45:17 04/05/20 22 04/05/2022 COMPR EHENS SHELLY METAB OLIC PANEL globulin 2.7 g/dL 2.6-4. 2 Not Available [facility] (Lab) [address] [place], [address], 04/05/2022 13:45:17 04/05/20 22 04/05/2022 COMPR EHENS SHELLY METAB OLIC PANEL A/G ratio 1.7 ratio 1.0-2. 0 Not Available [facility] (Lab) [address] [place], [address], 04/05/2022 13:45:17 04/05/20 22 04/05/2022 LIPID PANEL cholesterol 165 mg/dL 140-19 9 [facility] MONICA NSUS RECOM MENDA TION FOR MIRTA STERO L: ADULT CHILD LOW RISK: <200 <170 BORDE RLINE : <200- 239 ----- HIGH RISK: >240 >200 Not Available [facility] (Lab) [address] [place], [address], 04/05/2022 13:45:06 04/05/20 22 04/05/2022 LIPID PANEL triglyceride s 73 mg/dL 0-150 NIH MONICA NSUS REPOR T RECOM MENDA TION FOR TRIGL YCERI AMARJIT: ADULT CHILD LOW RISK: <150 ----- BODER LINE: 150-1 99 ----- HIGH RISK: >200 ----- Not Available [facility] (Lab) [address] [place], [address], 04/05/2022 13:45:06 04/05/20 22 04/05/2022 LIPID PANEL HDL cholesterol 57 mg/dL 40- Not Available [facility] (Lab) [address] [place], [address], 04/05/2022 13:45:06 04/05/2004/05/2022 LIPID PANEL LDL cholesterol, calculated 93 mg/dL [...] WILL NOT BE REPOR LISA. Not Available [facility] (Lab) [address] [place], [address], 04/05/2022 13:45:06 04/05/20 22 04/05/2022 URINE MICRO SCOPI C EXAM/ IRIS white blood cells 0-8 /i??h pfi?? 0-8 Not Available [facility] (Lab) [address] [place], [address], 04/05/2022 13:33:21 04/05/20 22 04/05/2022 URINE MICRO SCOPI C EXAM/ IRIS red blood cells 0-4 /i??h pfi?? 0-4 Not Available [facility] (Lab) [address] [place], [address], 04/05/2022 13:33:21 04/05/20 22 04/05/2022 URINE MICRO SCOPI C EXAM/ IRIS bacteria occasi onal abnormal Not Available [facility] (Lab) [address] [place], [address], 04/05/2022 13:33:21 04/05/20 22 04/05/2022 URINE MICRO SCOPI C EXAM/ IRIS mucous occasi onal /i??l pfi?? abnormal Not Available [facility] (Lab) [address] [place], [address], 04/05/2022 13:33:21 04/05/20 22 04/05/2022 URINE MICRO SCOPI C EXAM/ IRIS squamous epithelial none /i??l pfi?? Not Available [facility] (Lab) [address] [place], [address], 04/05/2022 13:33:21 04/05/20 22 04/05/2022 URINE MICRO SCOPI C EXAM/ IRIS sperm presen t /i??h pfi?? abnormal Not Available [facility] (Lab) [address] [place], [address], 04/05/2022 13:33:21 05/11/19 23 05/11/2022 urina lysis , dipst ick Leukocytes (reference range: negative kayla/ l) Negati ve Not Available [facility] [place] [address] [place] [address], [address], [address], 05/11/2022 14:21:17 05/11/19 23 05/11/2022 urina lysis , dipst ick Nitrite (reference rage: negative mg/dl) negati ve Not Available [facility] [address], [address], [address], 05/11/2022 14:21:17 05/11/19 23 05/11/2022 urina lysis , dipst ick Urobilinogen (reference range: 0.2-1 mg/dl) 0.2 Not Available [address], [address], 05/11/2022 14:21:17 05/11/19 23 05/11/2022 urina lysis , dipst ick Protein (reference range: negative mg/dl) Negati ve Not Available [address], [address], [address], 05/11/2022 14:21:17 05/11/19 23 05/11/2022 urina lysis , dipst ick pH (reference range: 5-7) 6.0 Not Available [address], [address], 05/11/2022 14:21:17 05/11/19 23 05/11/2022 urina lysis , dipst ick Blood (reference range: negative Eliel/ l) Negati ve Not Available [address], [address], 05/11/2022 14:21:17 05/11/19 23 05/11/2022 urina lysis , dipst ick Specific [place] (reference range: 1.005-1.030) 1.005 Not Available [address], [address], 05/11/2022 14:21:17 05/11/19 23 05/11/2022 urina lysis , dipst ick Ketone (reference range: negative mg/dl) Negati ve Not Available [address], [address] , [place], [address], 05/11/2022 14:21:17 05/11/19 23 05/11/2022 urina lysis , dipst ick Bilirubin (reference range: negative mg/dl) Negati ve Not Available [place] [address], [place], [address], 05/11/2022 14:21:17 05/11/19 23 05/11/2022 urina lysis , dipst ick Glucose (reference range: negative mg/dl) Negati ve Not Available [address], [place] [address], [place], [address], 05/11/2022 14:21:17 05/11/19 23 05/11/2022 urina lysis , dipst ick Appearance Clear Not Available [place] [address], [place], [address], 05/11/2022 14:21:17 05/11/19 23 05/11/2022 urina lysis , dipst ick Color Pale Yellow Not Available [place] [address], [place], [address], 05/11/2022 14:21:17 08/09/19 23 08/08/2022 CBC/C OMPLE TE BLD COUNT W/DIF F white blood cells 6.1 x10'3 /uL 4.2-10 .8 Not Available [facility] (Lab) [address] [place] [address], [address], 08/08/2022 12:21:03 08/09/19 23 08/08/2022 CBC/C OMPLE TE BLD COUNT W/DIF F red blood cells 4.83 x10'6 /uL 4.10-5 .80 Not Available [facility] (Lab) [address] [place], [address], 08/08/2022 12:21:03 08/09/19 23 08/08/2022 CBC/C OMPLE TE BLD COUNT W/DIF F hemoglobin 15.2 g/dL 13.2-1 7.0 Not Available [facility] (Lab) [address] [facility] [place], [address], 08/08/2022 12:21:03 08/09/19 23 08/08/2022 CBC/C OMPLE TE BLD COUNT W/DIF F hematocrit 46.3 % 39.3-5 0.0 Not Available [facility] (Lab) [address] [place], [address], 08/08/2022 12:21:03 08/09/19 23 08/08/2022 CBC/C OMPLE TE BLD COUNT W/DIF F mean red cell volume 95.9 fL 80.0-9 7.0 Not Available [facility] (Lab) [address] [place], [address], 08/08/2022 12:21:03 08/09/19 23 08/08/2022 CBC/C OMPLE TE BLD COUNT W/DIF F mean red cell hemoglobin 31.5 pg 27.0-3 3.0 Not Available [facility] (Lab) [address] [place], [address], 08/08/2022 12:21:03 08/09/19 23 08/08/2022 CBC/C OMPLE TE BLD COUNT W/DIF F mean RBC HGB concentratio n 32.8 g/dL 31.0-3 6.0 Not Available [facility] (Lab) [address] [place], [address], 08/08/2022 12:21:03 04/2608/08/2022 CBC/C OMPLE TE BLD COUNT W/DIF F red cell distribution width 13.1 % 11.8-1 5.5 Not Available [facility] (Lab) [address] [place], [address], 08/08/2022 12:21:03 08/09/19 23 08/08/2022 CBC/C OMPLE TE BLD COUNT W/DIF F platelets 242 x10'3 /uL 150-40 0 Not Available [facility] (Lab) [address] [place], [address], 08/08/2022 12:21:03 08/09/19 23 08/08/2022 CBC/C OMPLE TE BLD COUNT W/DIF F mean platelet volume 9.2 fL 9.0-12 .4 Not Available [facility] (Lab) [address] [place], [address], 08/08/2022 12:21:03 08/09/19 23 08/08/2022 CBC/C OMPLE TE BLD COUNT W/DIF F neutrophils 52.7 % 39.0-7 2.0 Not Available [facility] (Lab) [address] [place], [address], 08/08/2022 12:21:03 08/09/19 23 08/08/2022 CBC/C OMPLE TE BLD COUNT W/DIF F lymphocytes 34.4 % 16.0-4 7.0 Not Available [facility] (Lab) [address] [place], [address], 08/08/2022 12:21:03 08/09/19 23 08/08/2022 CBC/C OMPLE TE BLD COUNT W/DIF F monocytes 8.9 % 5.0-12 .0 Not Available [facility] (Lab) [address] [place], [address], 08/08/2022 12:21:03 08/09/19 23 08/08/2022 CBC/C OMPLE TE BLD COUNT W/DIF F eosinophils 2.8 % 1.0-7. 0 Not Available [facility] (Lab) [address] [place], [address], 08/08/2022 12:21:03 08/09/19 23 08/08/2022 CBC/C OMPLE TE BLD COUNT W/DIF F basophils 1.0 % 0.0-2. 0 Not Available [facility] (Lab) [address] [place], [address], 08/08/2022 12:21:03 08/09/19 23 08/08/2022 CBC/C OMPLE TE BLD COUNT W/DIF F immature granulocytes 0.2 % 0.00-0 .50 Not Available [facility] (Lab) [address] [place], [address], 08/08/2022 12:21:03 08/09/19 23 08/08/2022 CBC/C OMPLE TE BLD COUNT W/DIF F neutrophils, absolute count 3.22 x10'3 /uL 1.5-8. 0 Not Available [facility] (Lab) [address] [place], [address], 08/08/2022 12:21:03 08/09/19 23 08/08/2022 CBC/C OMPLE TE BLD COUNT W/DIF F lymphocytes, absolute count 2.10 x10'3 /uL 1.07-3 .43 Not Available [facility] (Lab) [address] [place], [address], 08/08/2022 12:21:03 08/09/19 23 08/08/2022 CBC/C OMPLE TE BLD COUNT W/DIF F monocytes, absolute count 0.54 x10'3 /uL 0.29-0 .99 Not Available [facility] (Lab) [address] [place], [address], 08/08/2022 12:21:03 08/09/19 23 08/08/2022 CBC/C OMPLE TE BLD COUNT W/DIF F eosinophils, absolute count 0.17 x10'3 /uL 0.02-0 .53 Not Available [facility] (Lab) [address] [place], [address], 08/08/2022 12:21:03 08/09/19 23 08/08/2022 CBC/C OMPLE TE BLD COUNT W/DIF F basophils, absolute count 0.06 x10'3 /uL 0.01-0 .08 Not Available [facility] (Lab) [address] [place], [address], 08/08/2022 12:21:03 08/09/19 23 08/08/2022 CBC/C OMPLE TE BLD COUNT W/DIF F immature granulocytes ,absolute 0.01 x10'3 /uL 0.00-0 .05 Not Available [facility] (Lab) [address] [place], [address], 08/08/2022 12:21:03 08/09/19 23 08/08/2022 CBC/C OMPLE TE BLD COUNT W/DIF F nucleated red blood cells 0.0 % -0 Not Available [facility] (Lab) [address] [place], [address], 08/08/2022 12:21:03 08/09/19 23 08/08/2022 CBC/C OMPLE TE BLD COUNT W/DIF F NRBC# 0.00 x10'3 /uL Not Available [facility] (Lab) [address] [place], [address], 08/08/2022 12:21:03 08/09/19 23 08/08/2022 COMPR EHENS SHELLY METAB OLIC PANEL sodium 137 mmol/ L 137-14 5 Not Available [facility] (Lab) [address] [place], [address], 08/08/2022 12:30:18 08/09/19 23 08/08/2022 COMPR EHENS SHELLY METAB OLIC PANEL potassium 4.2 mmol/ L 3.5-5. 1 Not Available [facility] (Lab) [address] [place], [address], 08/08/2022 12:30:18 08/09/19 23 08/08/2022 COMPR EHENS SHELLY METAB OLIC PANEL chloride 105 mmol/ L 98-107 Not Available [facility] (Lab) [address] [place], [address], 08/08/2022 12:30:18 08/09/19 23 08/08/2022 COMPR EHENS SHELLY METAB OLIC PANEL carbon dioxide 29 mmol/ L 22-30 Not Available [facility] (Lab) [address] [place], [address], 08/08/2022 12:30:18 08/09/19 23 08/08/2022 COMPR EHENS SHELLY METAB OLIC PANEL anion gap 7.2 mmol/ L 14-22 low Not Available [facility] (Lab) [address] [place], [address], 08/08/2022 12:30:18 08/09/19 23 08/08/2022 COMPR EHENS SHELLY METAB OLIC PANEL glucose 92 mg/dL 70-99 Not Available [facility] (Lab) [address] [place], [address], 08/08/2022 12:30:18 08/09/19 23 08/08/2022 COMPR EHENS SHELLY METAB OLIC PANEL BUN 18 mg/dL 8-19 Not Available [facility] (Lab) [address] [place], [address], 08/08/2022 12:30:18 08/09/19 23 08/08/2022 COMPR EHENS SHELLY METAB OLIC PANEL creatinine 0.97 mg/dL 0.66-1 .25 Not Available [facility] (Lab) [address] [place], [address], 08/08/2022 12:30:18 08/09/1908/08/2022 COMPR EHENS SHELLY METAB OLIC PANEL GFR >60 Refer ence Range : [place] GFR Healt hy Adult : >60 [...] calcu lator is avail able on the [facility] websi te: https :[email or web address] galina/pr ofess ional s/kdo qi/gf r_cal culat or Not Available [facility] (Lab) [address] [place], [address], 08/08/2022 12:30:18 08/09/1908/08/2022 COMPR EHENS SHELLY METAB OLIC PANEL alkaline phosphatase 81 U/L 38-126 Not Available [facility] (Lab) [address] [place], [address], 08/08/2022 12:30:18 08/09/1908/08/2022 COMPR EHENS SHELLY METAB OLIC PANEL alanine aminotransfe rase 22 U/L 0-50 Not Available [facility] (Lab) [address] [place], [address], 08/08/2022 12:30:18 08/09/19 23 08/08/2022 COMPR EHENS SHELLY METAB OLIC PANEL aspartate aminotransfe rase 25 U/L 15-46 Not Available [facility] (Lab) [address] [place], [address], 08/08/2022 12:30:18 08/09/19 23 08/08/2022 COMPR EHENS SHELLY METAB OLIC PANEL bilirubin, total 0.50 mg/dL 0.20-1 .30 Not Available [facility] (Lab) [address] [place], [address], 08/08/2022 12:30:18 08/09/19 23 08/08/2022 COMPR EHENS SHELLY METAB OLIC PANEL calcium 9.7 mg/dL 8.4-10 .2 Not Available [facility] (Lab) [address] [place], [address], 08/08/2022 12:30:18 08/09/19 23 08/08/2022 COMPR EHENS SHELLY METAB OLIC PANEL total protein 7.0 g/dL 6.3-8. 2 Not Available [facility] (Lab) [address] [place], [address], 08/08/2022 12:30:18 08/09/19 23 08/08/2022 COMPR EHENS SHELLY METAB OLIC PANEL albumin 4.1 g/dL 3.0-4. 4 Not Available [facility] (Lab) [address] [place], [address], 08/08/2022 12:30:18 08/09/19 23 08/08/2022 COMPR EHENS SHELLY METAB OLIC PANEL globulin 2.9 g/dL 2.6-4. 2 Not Available [facility] (Lab) [address] [place], [address], 08/08/2022 12:30:18 08/09/19 23 08/08/2022 COMPR EHENS SHELLY METAB OLIC PANEL A/G ratio 1.4 ratio 1.0-2. 0 Not Available [facility] (Lab) [address] [place], [address], 08/08/2022 12:30:18 03/20/20 23 03/20/2023 CBC/C OMPLE TE BLD COUNT W/DIF F white blood cells 5.4 x10'3 /uL 4.2-10 .8 Not Available [facility] (Lab) [address] [place], [address], 03/20/2023 12:43:32 03/20/20 23 03/20/2023 CBC/C OMPLE TE BLD COUNT W/DIF F red blood cells 4.54 x10'6 /uL 4.10-5 .80 Not Available [facility] (Lab) [address] [place], [address], 03/20/2023 12:43:32 03/20/20 23 03/20/2023 CBC/C OMPLE TE BLD COUNT W/DIF F hemoglobin 14.9 g/dL 13.2-1 7.0 Not Available [facility] (Lab) [address] [place], [address], 03/20/2023 12:43:32 03/20/20 23 03/20/2023 CBC/C OMPLE TE BLD COUNT W/DIF F hematocrit 44.2 % 39.3-5 0.0 Not Available [facility] (Lab) [address] [place], [address], 03/20/2023 12:43:32 03/20/20 23 03/20/2023 CBC/C OMPLE TE BLD COUNT W/DIF F mean red cell volume 97.4 fL 80.0-9 7.0 high Not Available [facility] (Lab) [address] [place], [address], 03/20/2023 12:43:32 03/20/20 23 03/20/2023 CBC/C OMPLE TE BLD COUNT W/DIF F mean red cell hemoglobin 32.8 pg 27.0-3 3.0 Not Available [facility] (Lab) [address] [place], [address], 03/20/2023 12:43:32 03/20/2003/20/2023 CBC/C OMPLE TE BLD COUNT W/DIF F mean RBC HGB concentratio n 33.7 g/dL 31.0-3 6.0 Not Available [facility] (Lab) [address] [place], [address], 03/20/2023 12:43:32 03/20/20 23 03/20/2023 CBC/C OMPLE TE BLD COUNT W/DIF F red cell distribution width 12.8 % 11.8-1 5.5 Not Available [facility] (Lab) [address] [place], [address], 03/20/2023 12:43:32 03/20/20 23 03/20/2023 CBC/C OMPLE TE BLD COUNT W/DIF F platelets 229 x10'3 /uL 150-40 0 Not Available [facility] (Lab) [address] [place], [address], 03/20/2023 12:43:32 03/20/20 23 03/20/2023 CBC/C OMPLE TE BLD COUNT W/DIF F mean platelet volume 9.7 fL 9.0-12 .4 Not Available [facility] (Lab) [address] [place], [address], 03/20/2023 12:43:32 03/20/20 23 03/20/2023 CBC/C OMPLE TE BLD COUNT W/DIF F neutrophils 46.6 % 39.0-7 2.0 Not Available [facility] (Lab) [address] [place], [address], 03/20/2023 12:43:32 03/20/20 23 03/20/2023 CBC/C OMPLE TE BLD COUNT W/DIF F lymphocytes 37.5 % 16.0-4 7.0 Not Available [facility] (Lab) [address] [place], [address], 03/20/2023 12:43:32 03/20/20 23 03/20/2023 CBC/C OMPLE TE BLD COUNT W/DIF F monocytes 10.7 % 5.0-12 .0 Not Available [facility] (Lab) [address] [place], [address], 03/20/2023 12:43:32 03/20/20 23 03/20/2023 CBC/C OMPLE TE BLD COUNT W/DIF F eosinophils 3.9 % 1.0-7. 0 Not Available [facility] (Lab) [address] [place], [address], 03/20/2023 12:43:32 03/20/20 23 03/20/2023 CBC/C OMPLE TE BLD COUNT W/DIF F basophils 1.1 % 0.0-2. 0 Not Available [facility] (Lab) [address] [place], [address], 03/20/2023 12:43:32 03/20/20 23 03/20/2023 CBC/C OMPLE TE BLD COUNT W/DIF F immature granulocytes 0.2 % 0.00-0 .50 Not Available [facility] (Lab) [address] [place], [address], 03/20/2023 12:43:32 03/20/20 23 03/20/2023 CBC/C OMPLE TE BLD COUNT W/DIF F neutrophils, absolute count 2.54 x10'3 /uL 1.5-8. 0 Not Available [facility] (Lab) [address] [place], [address], 03/20/2023 12:43:32 03/20/20 23 03/20/2023 CBC/C OMPLE TE BLD COUNT W/DIF F lymphocytes, absolute count 2.04 x10'3 /uL 1.07-3 .43 Not Available [facility] (Lab) [address] [place], [address], 03/20/2023 12:43:32 03/20/20 23 03/20/2023 CBC/C OMPLE TE BLD COUNT W/DIF F monocytes, absolute count 0.58 x10'3 /uL 0.29-0 .99 Not Available [facility] (Lab) [address] [place], [address], 03/20/2023 12:43:32 03/20/20 23 03/20/2023 CBC/C OMPLE TE BLD COUNT W/DIF F eosinophils, absolute count 0.21 x10'3 /uL 0.02-0 .53 Not Available [facility] (Lab) [address] [place], [address], 03/20/2023 12:43:32 03/20/20 23 03/20/2023 CBC/C OMPLE TE BLD COUNT W/DIF F basophils, absolute count 0.06 x10'3 /uL 0.01-0 .08 Not Available [facility] (Lab) [address] [place], [address], 03/20/2023 12:43:32 03/20/20 23 03/20/2023 CBC/C OMPLE TE BLD COUNT W/DIF F immature granulocytes ,absolute 0.01 x10'3 /uL 0.00-0 .05 Not Available [facility] (Lab) [address] [place], [address], 03/20/2023 12:43:32 03/20/20 23 03/20/2023 CBC/C OMPLE TE BLD COUNT W/DIF F nucleated red blood cells 0.0 % -0 Not Available [facility] (Lab) [address] [place], [address], 03/20/2023 12:43:32 03/20/20 23 03/20/2023 CBC/C OMPLE TE BLD COUNT W/DIF F NRBC# 0.00 x10'3 /uL Not Available [facility] (Lab) [address] [facility] [place], [address], 03/20/2023 12:43:32 03/20/20 23 03/20/2023 COMPR EHENS SHELLY METAB OLIC PANEL sodium 137 mmol/ L 137-14 5 Not Available [facility] (Lab) [address] [place], [address], 03/20/2023 14:36:28 03/20/20 23 03/20/2023 COMPR EHENS SHELLY METAB OLIC PANEL potassium 4.4 mmol/ L 3.5-5. 1 Not Available [facility] (Lab) [address] [place], [address], 03/20/2023 14:36:28 03/20/20 23 03/20/2023 COMPR EHENS SHELLY METAB OLIC PANEL chloride 106 mmol/ L 98-107 Not Available [facility] (Lab) [address] [place], [address], 03/20/2023 14:36:28 03/20/20 23 03/20/2023 COMPR EHENS SHELLY METAB OLIC PANEL carbon dioxide 27 mmol/ L 22-30 Not Available [facility] (Lab) [address] [place], [address], 03/20/2023 14:36:28 03/20/20 23 03/20/2023 COMPR EHENS SHELLY METAB OLIC PANEL anion gap 8.4 mmol/ L 14-22 low Not Available [facility] (Lab) [address] [place], [address], 03/20/2023 14:36:28 03/20/20 23 03/20/2023 COMPR EHENS SHELLY METAB OLIC PANEL glucose 100 mg/dL 70-99 high Not Available [facility] (Lab) [address] [place], [address], 03/20/2023 14:36:28 03/20/20 23 03/20/2023 COMPR EHENS SHELLY METAB OLIC PANEL BUN 13 mg/dL 8-19 Not Available [facility] (Lab) [address] [place], [address], 03/20/2023 14:36:28 03/20/20 23 03/20/2023 COMPR EHENS SHELLY METAB OLIC PANEL creatinine 0.90 mg/dL 0.66-1 .25 Not Available [facility] (Lab) [address] [place], [address], 03/20/2023 14:36:28 03/20/20 23 03/20/2023 COMPR EHENS SHELLY METAB OLIC PANEL GFR >60 Refer ence Range : [place] ge GFR Healt hy Adult : >60 [...] calcu lator is avail able on the [facility] websi te: https ://peyton w.kid dragan.o rg/pr ofess ional s/kdo qi/gf r_cal culat or Not Available [facility] (Lab) [address] [place], [address], 03/20/2023 14:36:28 03/20/20 23 03/20/2023 COMPR EHENS SHELLY METAB OLIC PANEL alkaline phosphatase 68 U/L 38-126 Not Available [facility] (Lab) [address] [place], [address], 03/20/2023 14:36:28 03/20/20 23 03/20/2023 COMPR EHENS SHELLY METAB OLIC PANEL alanine aminotransfe rase 23 U/L 0-50 Not Available [facility] (Lab) [address] [place], [address], 03/20/2023 14:36:28 03/20/20 23 03/20/2023 COMPR EHENS SHELLY METAB OLIC PANEL aspartate aminotransfe rase 28 U/L 15-46 Not Available [facility] (Lab) [address] [place], [address], 03/20/2023 14:36:28 03/20/20 23 03/20/2023 COMPR EHENS SHELLY METAB OLIC PANEL bilirubin, total 0.70 mg/dL 0.20-1 .30 Not Available [facility] (Lab) [address] [place], [address], 03/20/2023 14:36:28 03/20/20 23 03/20/2023 COMPR EHENS SHELLY METAB OLIC PANEL calcium 9.4 mg/dL 8.4-10 .2 Not Available [facility] (Lab) [address] [place], [address], 03/20/2023 14:36:28 03/20/20 23 03/20/2023 COMPR EHENS SHELLY METAB OLIC PANEL total protein 6.6 g/dL 6.3-8. 2 Not Available [facility] (Lab) [address] [place], [address], 03/20/2023 14:36:28 03/20/20 23 03/20/2023 COMPR EHENS SHELLY METAB OLIC PANEL albumin 3.8 g/dL 3.0-4. 4 Not Available [facility] (Lab) [address] [place], [address], 03/20/2023 14:36:28 03/20/20 23 03/20/2023 COMPR EHENS SHELLY METAB OLIC PANEL globulin 2.8 g/dL 2.6-4. 2 Not Available [facility] (Lab) [address] [place], [address], 03/20/2023 14:36:28 03/20/20 23 03/20/2023 COMPR EHENS SHELLY METAB OLIC PANEL A/G ratio 1.4 ratio 1.0-2. 0 Not Available [facility] (Lab) [address] [place], [address], 03/20/2023 14:36:28 03/20/20 23 03/20/2023 LIPID PANEL cholesterol 151 mg/dL 140-19 9 [facility] MONICA NSUS RECOM MENDA TION FOR MIRTA STERO L: ADULT CHILD LOW RISK: <200 <170 BORDE RLINE : <200- 239 ----- HIGH RISK: >240 >200 Not Available [facility] (Lab) [address] [place], [address], 03/20/2023 14:36:30 03/20/20 23 03/20/2023 LIPID PANEL triglyceride s 107 mg/dL 0-150 NIH MONICA NSUS REPOR T RECOM MENDA TION FOR TRIGL YCERI AMARJIT: ADULT CHILD LOW RISK: <150 ----- BODER LINE: 150-1 99 ----- HIGH RISK: >200 ----- Not Available [facility] (Lab) [address] [place], [address], 03/20/2023 14:36:30 03/20/20 23 03/20/2023 LIPID PANEL HDL cholesterol 43 mg/dL 40- Not Available [facility] (Lab) [address] [place], [address], 03/20/2023 14:36:30 03/20/20 23 03/20/2023 LIPID PANEL [...] WILL NOT BE REPOR LISA. Not Available [facility] (Lab) [address] [place], [address], 03/20/2023 14:36:30 05/11/19 23 05/11/2022 US, sara er No observ ation record ed. [id number] [facility] [address], [address], [place], [address], 06/13/2022 05:27:26 10/22/19 24 10/22/2023 XR, cervi polo spine , 4 or 5 view [facility] [address] [place] [address] [phone] Patien t Name: ORAL PICHARDO Access ion #: [id number] Sex: M : 1959 8 Dictat ed By: Mehran Andrew Attend ing Physic gregorio: INGRID LONDON Physic gregorio: INGRID LONDON Exam Date: 2023 14:59 PM Exam Name: XR C SPINE 4-5V Admitt ing Diagno sis(es ): ACCESS ION #: [id number] INDICA TION: Cervic algia COMPAR NARAYAN: [...] 2023 15:27: 30 PM Page 1 [email or web address] [facility] (Imaging) [address] [place], [address], 10/27/2023 10:55:39 03/24/20 24 03/24/2024 LDCT, chest , [facility] [address] [facility], [place] [address] [phone] Patien t Name: ORAL PICHARDO Access ion #: [id number] Sex: M : 1959 6 Dictat [...] use of intrav enous contra ct. Axial, bueno l and sagitt al multip lanar reform [...] Vascul ar Struct ures: Cardio megaly . Bueno ry artery calcif icatio ns. Vascul ar calcif icatio ns of the aorta. Page 1 [facility] [address] [place] [address] Patien t Name: ORAL PICHARDO Access ion #: [id number] Sex: M : 1959 6 Dictat ed By: Deion Bach Attend ing Physic gregorio: WM SKINNER Orderi ng Physic gregorio: INGRID LONDON Exam Date: [...] at 2023 10:41: 00 AM Page 2 [email or web address] [facility] (Imaging) [address] [place], [address], 05/21/2024 15:01:31 Result Notes Documentation Provider Name and Address Organization Details Recorded Time Xr, Cervical Spine, 4 Or 5 View : [facility] [address] [place] [address] Patient Name: VINNY KIM Sex: M : 1960 Dictated By: Mehran Andrew Attending Physician: ADRI LONDON Ordering Physician: ADRI LONDON Exam Date: 10/22/2023 14:59 PM Exam Name: XR C SPINE 4-5V Admitting Diagnosis(es): ACCESSION #: [id number] INDICATION: Cervicalgia COMPARISON: None TECHNIQUE: 4 views of the cervical spine were obtained. FINDINGS: The cervical vertebral alignment is normal. The predental space is normal. The intervertebral disc spaces are well-maintained. No significant facet arthropathy is noted. No acute fracture, vertebral compression deformity or aggressive osseous lesions. The imaged lung apices are unremarkable. IMPRESSION: No acute fracture. Page 1 Yahaira Negron APRN [address] [facility], [facility] [address], [place], [address], [facility] Infusion Resource [facility] 10/27/2023 10:55:39 Ldct, Chest, For Lung Cancer Screening : [facility] [address] [place] [address] Patient Name: VINNY KIM Sex: M : 1960 Dictated By: Tyler Bach Attending Physician: ADRI LONDON Ordering Physician: ADRI LONDON Exam Date: 03/24/2024 07:37 AM Exam Name: CT LOW DOSE CNCR SCREENING Admitting Diagnosis(es): Procedure: CT LOW DOSE CNCR SCREENING Reason for study/Clinical History: tobacco use Comparison Study: None available at time of dictation. Exam Date: 03/24/2024 07:37 AM TECHNIQUE: Multidetector CT of the chest was performed from the lung apices to the upper abdomen without the use of intravenous contract. Axial, coronal and sagittal multiplanar reformats were performed. Radiation Dose Information: CT Dose: CTDI volume is 1.3 mGy. Dose-length product is 65.2 mGy*cm The dose indicators for CT are the volume Computed Tomography (CT) Dose Index (CTDIvol) and the Dose Length Product (DLP), and are measured in units of mGy and mGy-cm, respectively. These indicators are not patient dose, but values generated from the CT scanner acquisition factors. The report includes radiation exposure data for exposures received during this examination. FINDINGS: Lower neck: Normal thyroid. Lungs: Biapical scarring. No focal consolidation, pleural effusion or pneumothorax. Heart/Vascular Structures: Cardiomegaly. Coronary artery calcifications. Vascular calcifications of the aorta. Page 1 [facility] [address] [place] [address] Patient Name: VINNY KIM Sex: M : 1960 Dictated By: Tyler Bach Attending Physician: WM RUSH Ordering Physician: ADRI LONDON Exam Date: 03/24/2024 07:37 AM Exam Name: CT LOW DOSE CNCR SCREENING Admitting Diagnosis(es): Lymph Nodes: No adenopathy Pleura: No pleural effusion or significant pneumothorax. Musculoskeletal: No acute osseous abnormality. Degenerative changes of the spine. Soft tissues: Normal. Upper abdomen: Limited portions of the upper abdomen are unremarkable. IMPRESSION: No acute intrathoracic abnormality. Lung-RADS Category 1: Continue annual screening with LDCT (version 1.1 addition) Radiation optimization: All CT scans at this facility use at least one of these dose optimization techniques: automated exposure control mA and/or kV adjustment per patient size (includes targeted exams where dose is matched to clinical indication) or iterative reconstruction. Page 2 R[place] Fuentes [place] [facility] [place] [facility] 05/21/2024 15:01:31 Problems Name Problem SNOMED Code Status Onset Date Resolution Date Notes Provider Name and Address Organization Details Recorded Time Tobacco user 304701020 Active Not Available [facility] 3 07:44:22 Benign essential hypertension 8504832 Active Not Available [facility] 3 07:44:22 Chronic obstructive pulmonary disease 32456225 Active Not Available [facility] 3 07:44:22 Low back pain 523413185 Active Not Available [facility] 3 07:44:22 Knee pain Active Not Available [facility] 3 07:44:22 Peripheral arterial occlusive disease 194469541 Active Not Available [facility] 3 07:44:23 Influenza 2840525 Active Not Available [facility] 3 07:44:23 Neck pain 82948665 Active Not Available [facility] 3 07:44:23 Pain in limb 72393768 Active Not Available [facility] 3 07:44:23 Dyslipidemia 270097461 Active 2020 Not Available [facility] 3 07:44:22 Incomplete emptying of urinary bladder 742508256 Active 2021 Not Available [facility] 3 07:44:22 Skin lesion 69880464 Active 2021 Not Available [facility] 3 07:44:23 Increased frequency of urination 399606068 Active 2022 Not Available [facility] 3 07:44:22 Anxiety 29114244 Active 2022 Not Available [facility] 3 07:44:23 Bronchitis 04606684 Active 2022 SATHISH Tinajero, [place] [facility] [place] [facility] 3 16:45:46 Problem Notes None recorded. Procedures Surgical History Date Name Laterality Status Provider Name and Address Organization Details Recorded Time 08/14/19 Colonoscopy completed Not Available [facility] 06/14/19 05:14:05 06/14/19 16 Stent Placement completed Not Available [facility] 04/2022 05:14:05 Knee Surgery completed Not Available [facility] 06/13/2022 05:14:05 Imaging Results None recorded. Procedure Notes None [...] Not Available No t Available [facility] [id number] (PF) 60 mcg (15 mcg x 4)/0.5 [...] mass index (BMI) Body height Oxygen saturation Heart rate Body temperature Body weight Systolic And Diastolic Provider Name and Address Organization Details Last Updated DateTime 3 23.7 kg/m2 182.88 cm 97 % 74 /min 98.2 [degF] 99894.6 6 g 180/105 mm[Hg] Not Available [facility] 3 05:16:28 Date Recorded Body height Body mass index (BMI) Body weight Body temperature Heart rate Systolic And Diastolic Provider Name and Address Organization Details Last Updated DateTime 3 182.88 cm 24.1 kg/m2 95687.4 4 g 97.9 [degF] 80 /min 146/80 mm[Hg] SATHISH David [facility] 3 10:27:27 Date Recorded Body height Body mass index (BMI) Body weight Body temperature Heart rate Systolic And Diastolic Provider Name and Address Organization Details Last Updated DateTime 3 182.88 cm 23.5 kg/m2 14019.4 8 g 98.2 [degF] 62 /min 120/82 mm[Hg] SATHISH David [facility] 3 11:32:31 Date Recorded Body height Body mass index (BMI) Body weight Body temperature Heart rate Systolic And Diastolic Provider Name and Address Organization Details Last Updated DateTime 3 182.88 cm 24.3 kg/m2 81268.0 3 g 97.7 [degF] 63 /min 140/82 mm[Hg] SATHISH David [facility] 3 16:11:34 Date Recorded Body mass index (BMI) Body height Heart rate Body temperature Body weight Systolic And Diastolic Provider Name and Address Organization Details Last Updated DateTime 2 23.6 kg/m2 182.88 cm 77 /min 98 [degF] 37516.0 7 g 122/76 mm[Hg] Not Available [facility] 3 05:16:28 Social History Question Answer Notes LastModified by Organization Details LastModified Time Tobacco Smoking Status Current Every Day Smoker VIKAS Sanchez, [facility] 03/27/2023 15:16:17 Do You Have An Advance Directive? No [id number] Information not available 06/13/2022 What Is Your Level Of Caffeine Consumption? Heavy [id number] Information not available 06/13/2022 How Much Tobacco Do You Chew? None [id number] Information not available 06/13/2022 In The 14 Days Before Symptom Onset, Have You Had Close Contact With A Laboratory-conf irmed COVID-19 While That Case Was Ill? No [email or web address] Information not available 03/27/2023 In The 14 Days Before Symptom Onset, Have You Had Close Contact With A Person Who Is Under Investigation For COVID-19 While That Person Was Ill? No [email or web address] Information not available 03/27/2023 What Type Of Diet Are You Following? REGULAR [id number] [id number] Information not available 06/13/2022 Which Illicit Or Recreational Drugs Have You Used? None Information not available 03/27/2023 What Is The Highest Grade Or Level Of School You Have Completed Or The Highest Degree You Have Received? VP10978-1 [email or web address] Information not available 03/27/2023 Have There Been Any Changes To Your Family Or Social Situation? Yes Passed Information not available 03/27/2023 What Is The Fluoride Status Of Your Home? Unknown [email or web address] Information not available 03/27/2023 Are There Any Guns Present In Your Home? No [email or web address] Information not available 03/27/2023 Do You Use Insect Repellent Routinely? No [email or web address] Information not available 03/27/2023 Where Do You Live? SingleLevelHouse With Basement [email or web address] Information not available 03/27/2023 Do You Have A Medical Power Of Cnc Manufacturing Engineer? No [email or web address] Information not available 03/27/2023 What Was The Date Of Your Most Recent Tobacco Screening? 03/27/2023 [email or web address] Information not available 03/27/2023 Do You Have Any Pets? Yes [email or web address] Information not available 03/27/2023 What Is Your Relationship Status? [id number] [id number] Information not available 06/13/2022 Do You Use Your Seat Belt Or Car Seat Routinely? Yes [email or web address] Information not available 03/27/2023 Do You Have Smoke And Carbon Monoxide Detectors In Your Home? Yes [email or web address] Information not available 03/27/2023 At What Age Did You Start Smoking Tobacco? 12 [email or web address] Information not available 03/27/2023 Are You Passively Exposed To Smoke? No [email or web address] Information not available 03/27/2023 Are There Any Smokers In Your House? No [email or web address] Information not available 03/27/2023 How Much Tobacco Do You Smoke? 1 PPD [id number] [id number] Information not available 06/13/2022 What Types Of Sporting Activities Do You Participate In? None [email or web address] Information not available 03/27/2023 Do You Use Sunscreen Routinely? No [email or web address] Information not available 03/27/2023 Have You Recently Traveled Abroad? No [email or web address] Information not available 03/27/2023 Do You Have Any Dietary Restrictions? No [email or web address] Information not available 03/27/2023 Sex: Male Functional Status Question Answer Note LastModified by Organizat ion Details LastModified Time Do you use any illicit or recreational drugs? No [email or web address] Information not available 03/27/2023 Do you or have you ever used any other forms of tobacco or nicotine? No [email or web address] Information not available 03/27/2023 What is your level of alcohol consumption? None [id number] Information not available 06/13/2022 Do you or have you ever used smokeless tobacco? 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 Never used electronic cigarettes [email or web address] Information not available 03/27/2023 What is your exercise level? Heavy [id number] Information not available 06/13/2022 Mental Status Question Answer Note LastModified by Organization D etails LastModified Time Do you feel stressed (tense, restless, nervous, or anxious, or unable to sleep at night)? [id number] [email or web address] Information not available 03/27/2023 Family History Relationship Description Onset Age of this Age Resolved Age Notes LastModified by Organization Details LastModified Time Mother Aneurysm [email or web address] Not availa ble 03/27/2023 15:16:14 Mother Hypertensive disorder [id number] Not available 06/13/2022 05:14:07 Father Heart disease [id number] Not available 06/13/2022 05:14:07 Medical History Condition [...] HAVE YOU BEEN HOSPITALIZED OR SEEN IN [facility] ER IN THE PAST YEAR ? N ATHEROSCLEROSIS [...] 3 completed VIKAS Sanchez, [place] - [facility] 03/27/2023 15:16:18 influenza, unspecified formulation 3 completed Not Available [facility] 03/22/2023 07:44:23 Influenza, split virus, quadrivalent, preservative 0 completed Not Available [facility] 03/22/2023 07:44:23 Influenza, split virus, quadrivalent, preservative 8 completed Not Available [facility] 03/22/2023 07:44:23 COVID-19, mRNA, LNP-S, PF, 30 mcg/0.3 mL dose 2 completed Not Available [facility] [...] ICD10 Code Diagnosis IMO Codes Diagnosis Note [id number] Adri London MD [facility] [address] [place] [address] 08/29/2020 00:00:00 08/29/2020 22:37:05 [id number] Adri London MD [facility] [address] [place] [address] [address] 09/14/2020 00:00:00 09/24/2020 16:43:55 [id number] Adri London MD S[facility] Internal Med [facility] 15 [address] [place] [address] [address] 01/20/2021 00:00:00 02/19/2021 21:57:08 [id number] Adri London MD [facility] Internal Med [facility] 15 2043 [place] [address] [address] 03/27/2021 00:00:00 04/15/2021 22:46:01 [id number] Adri London MD [facility] Internal Med [facility] 15 [address] [place] [address] [address] 07/07/2021 00:00:00 07/09/2021 12:02:52 [id number] Adri London MD [facility] Internal Med [facility] [address] [place] [address]., [address] [address] 10/25/2021 00:00:00 11/06/2021 22:28:57 [id number] Adri London MD [facility] Internal Med [facility] [address] [place], [place] [address]., [address] [address] 11/24/2021 00:00:00 12/03/2021 12:17:26 [id number] Adri London MD [facility] Internal Med [facility] [address] [place], [place] [address] [address] 04/05/2022 00:00:00 04/05/2022 22:55:17 [id number] Nirmala Hurst MD [facility] Urology [address] [place] [address] 05/11/2022 00:00:00 05/11/2022 14:46:17 [id number] Adri London MD [facility] Internal Med [facility] 15 2043 [facility], [address]464 1 08/08/2022 10:12:57 08/08/2022 11:07:45 Benign essential hypertension 0580107 I10 Anxiety 02117669 F41.9 Dyslipidemia 632772073 E 78.5 Peripheral arterial occlusive disease 441572218 I73.9 [id number] Adri London MD [facility] Internal Med [facility] 15 2043 [facility] [address] 1 10/04/2022 11:15:54 10/04/2022 11:59:16 Benign essential hypertension 6516127 I10 Dyslipidemia 513995856 E 78.5 Anxiety 29879612 F41.9 Chronic ob structive pulmonary disease 26196535 J44.9 Peripheral arterial occlusive disease 663550902 I73.9 Tobacco user 172691396 Z 72.0 [id number] Adri London MD [facility] Internal Med [facility] [address] [address] 03/27/2023 15:14:36 03/27/2023 16:45:30 Bronchitis 09980065 J40 Dyslipidemia 164520389 E 78.5 Benign ess ential hypertension 4218019 I10 Chronic ob structive pulmonary disease 23498188 J44.9 Peripheral arterial occlusive disease 360813421 I73.9 Health Concerns Section Related Observation LastModified by Organization Detai ls LastModified Time None Recorded Concern Status LastModified by Organization Details LastModified Time None Recorded Advance Directives Directive N: Payers Insurance Date Sequence Insurance Name Policy Number Policy Auguste Covered Member ID Auguste Member ID Guarantor Name 03/27/2023 1 [place] Vinny Kim [id number] Vinny Kim 04/17/2023 2 [place] 111 Vinny Kim [id number] Vinny Alicea Judy Notes Date Note Type Note Provider Name and Address Organization Details Recorded Time 3 text/htm l Hyperlipidemia could do better with dietAnxiety high no SI or HI some depression symptoms since has passedPeripheral arterial occlusive disease no claudication but continues to smoke Adri London MD [address], [place], [address], [employer] 08/19/2022 14:41:26 3 text/htm l smoking continuesAnxiety stableDyslipidemia diet pretty goodCOPD no shortness of no coughPeripheral arterial disease no claudicationHypertension no headache no dizziness Adri London MD [address], [place], [address], [facility] 10/16/2022 22:08:30 3 text/htm l COPD continues to smoke denies got a couple of days of yellow sputum and some wheezing. Peripheral arterial occlusive disease no claudication. Hypertension he has not had any headache or chest pain. Adri London MD [address], [place], [address], [employer] 04/15/2023 21:24:53
--- OUTSIDE RECORDS SUMMARY | 2025-03-05 08:37 | XMS_ITS | Clinical Summary ---
Author Organization [facility] Address [facility] [place] [address] Care Team Providers Care Baller Tender Name Role Phone Keenan London MD Primary Care Provider [phone] Allergies No known active allergies Medications lisinopril [...] Date Smoking Tobacco: Every Day Cigarettes 1 50.9 Started: 1974 Smokeless Tobacco: Never Tobacco Cessation:Ready [...] 12:20 PM CDT Height 180.3 cm (5' 11) 01/02/2024 12:20 PM CDT Body Mass Index 24.75 01/02/2024 12:20 PM CDT Plan of Treatment Health Maintenance Due Date Last Done Comments Colorectal Cancer Screening Colonoscopy (10 Years) 1958 Hepatitis C 02/03/1976 DTaP, Tdap and Td Vaccines (1 - Tdap) 1977 Zoster Vaccines (1 of 2) 02/03/2008 Annual Medicare Wellness Visit 2023 COVID-19 Vaccine ( season) 2024 01/15/2024, 01/16/2022, 02/10/2021, Additional history exists Influenza Adult (#1) 2025 01/15/2024, 01/18/2023, 01/22/2022, Additional history exists RSV Immunization or 60+ Years Completed 01/18/2023 Pneumococcal Vaccine: 50+ Years Completed 10/22/2023 Hepatitis A Vaccines Aged Out No long er eligible based on patient's age to complete this topic Meningococcal B Vaccine Aged Out No l onger eligible based on patient's age to complete this topic Meningococcal Vaccine Aged Out No christopher rosangela eligible based on patient's age to complete this topic RSV Immunizations Under 20 Months Aged Out No longer eligible based on patient's age to complete this topic Insurance [facility] MEDICARE Care Teams Baller Tender Relationship Specialty Start Date End Date Keenan London MD PCP - General INTERNAL MEDICINE 12/25/23
--- OUTSIDE RECORDS SUMMARY | 2025-03-05 08:37 | XMS_ITS | Continuity of Care Document ---
Author Organization [facility] (Adult [facility]) Address [address] [place] [address] Care Team Providers Care Orchid Superintendent Name Role Phone ADRI LONDON Primary Care Provider BILLY FAIR Urologist Assessment Encounter Date Assessment Date Assessment LastModified by Organization Details LastModified Time 12/16/2024 12/16/2024 CBC CMP lipid ABIs Dopplers with waveform of the legs add Breztri 2 puffs b.i.d. see me in 4 months warned of the ill effects of tobacco which were included but not limited to increase tumors of the aerodigestive tract other systems heart attack stroke and cancer that could lead to sudden or chronic medical illness [email or web address] Not available 12/16/2024 22:10:22 Plan of Treatment Reminders Order Date Submit Date Provider Last Modified By Organization Details Last Modified Time Details Appointments ANY 15 2025 01:15P M Adri London MD Not available Not available Not available Lab CMP, serum or plasma 2024 025 DIAZ [facility], [address], [place], [address], 12/17/2024 07:14:39 lipid panel, serum 2024 025 DIAZ [facility], [address], [place], [address], 12/17/2024 07:14:38 CBC w/ auto diff 2024 025 DIAZ [facility], [address], [place], [address], 12/17/2024 07:14:39 Referral None recorded. Procedures None recorded. Surgeries None recorded. Imaging None recorded. Medication Orders Breztri Aerospher e 160 mcg-9mcg- 4.8mcg/ac tuation HFA aerosol inhaler 2024 025 [email or web address] [facility] [address], [address] [place] [address], [address], 12/16/2024 22:14:17 Patient TargetsNo targets recorded. Patient Instructions Encounter Date Encounter Id Patient Instructions Last Modified By Organization Details Last Modified Time 12/16/2024 [id number] eating healthy foods: care instructions Not available 12/16/2024 14:54:46 Quitting Tobacco : Care Instructions [email or web address] Not available 12/16/2024 14:54:46 (TRACEY) ankle brachial index* - with waveforms. [email or web address] Not available 03/04/2025 10:03:39 Reason for Referral None Reported. Results Created Date Observation Date Name Description Value Unit Range Abnormal Flag Note LastModifiedBy Organization Detail LastModifiedTime 12/17/1912/17/2024 LIPID PANEL cholesterol, total 124 mg/dL 100-19 9 Not Available [facility] ([facility]) [address], [place], [address], 12/17/2024 07:14:38 12/17/1912/17/2024 LIPID PANEL triglyceride s 65 mg/dL 0-149 Not Available [facility] ([facility]) [address], [place], [address], 12/17/2024 07:14:38 12/17/1912/17/2024 LIPID PANEL HDL cholesterol 43 mg/dL >39 Not Available [facility] ([facility]) [address], [place], [address], 12/17/2024 07:14:38 12/17/19 25 12/17/2024 LIPID PANEL VLDL cholesterol polo 14 mg/dL 5-40 Not Available [facility] ([facility]) [address], [place], [address], 12/17/2024 07:14:38 12/17/19 25 12/17/2024 LIPID PANEL LDL chol calc ([facility]) 67 mg/dL 0-99 Not Available [facility] ([facility]) [address], [place], [address], 12/17/2024 07:14:38 12/17/19 25 12/16/2024 COMP. METAB [...] at [email or web address] [email or web address] org. Not Available [facility] ([facility]) [address], [place], [address], 12/17/2024 07:14:39 12/17/19 25 12/17/2024 COMP. METAB OLIC PANEL (14) glucose 45 mg/dL 70-99 below low normal Not Available [facility] ([facility]) [address], [place], [address], 12/17/2024 07:14:39 12/17/19 25 12/17/2024 COMP. METAB OLIC PANEL (14) BUN 18 mg/dL 8-27 Not Available [facility] ([facility]) [address] [place], [address], 12/17/2024 07:14:39 12/17/19 25 12/17/2024 COMP. METAB OLIC PANEL (14) creatinine 0.92 mg/dL 0.76-1 .27 Not Available [facility] ([facility]) [address] [place], [address], 12/17/2024 07:14:39 12/17/19 25 12/17/2024 COMP. METAB OLIC PANEL (14) eGFR 92 mL/mi n/1.7 3 >59 Not Available [facility] ([facility]) [address] [place], [address], 12/17/2024 07:14:39 12/17/19 25 12/17/2024 COMP. METAB OLIC PANEL (14) BUN/creatini ne ratio 20 10-24 Not Available [facility] ([facility]) [address], [place], [address], 12/17/2024 07:14:39 12/17/19 25 12/17/2024 COMP. METAB OLIC PANEL (14) sodium 141 mmol/ L 134-14 4 Not Available [facility] ([facility]) [address] [place], [address], 12/17/2024 07:14:39 12/17/19 25 12/17/2024 COMP. METAB OLIC PANEL (14) potassium 4.4 mmol/ L 3.5-5. 2 Not Available [facility] ([facility]) [address] [place], [address], 12/17/2024 07:14:39 12/17/19 25 12/17/2024 COMP. METAB OLIC PANEL (14) chloride 104 mmol/ L 96-106 Not Available [facility] ([facility]) [address] [place] [place], [address], 12/17/2024 07:14:39 12/17/19 25 12/17/2024 COMP. METAB OLIC PANEL (14) carbon dioxide, total 22 mmol/ L 20- Not Available [facility] ([facility]) [address] [place], [address], 12/17/2024 07:14:39 12/17/19 25 12/17/2024 COMP. METAB OLIC PANEL (14) calcium 9.5 mg/dL 8.6-10 .2 Not Available [facility] ([facility]) [address], [place], [address], 12/17/2024 07:14:39 12/17/19 25 12/17/2024 COMP. METAB OLIC PANEL (14) protein, total 6.6 g/dL 6.0-8. 5 Not Available [facility] ([facility]) [address] [place], [address], 12/17/2024 07:14:39 12/17/19 25 12/17/2024 COMP. METAB OLIC PANEL (14) albumin 4.3 g/dL 3.9-4. 9 Not Available [facility] ([facility]) [address] [place], [address], 12/17/2024 07:14:39 12/17/19 25 12/17/2024 COMP. METAB OLIC PANEL (14) globulin, total 2.3 g/dL 1.5-4. 5 Not Available [facility] ([facility]) [address] [place], [address], 12/17/2024 07:14:39 12/17/19 25 12/17/2024 COMP. METAB OLIC PANEL (14) bilirubin, total 0.3 mg/dL 0.0-1. 2 Not Available [facility] ([facility]) [address] [place], [address], 12/17/2024 07:14:39 12/17/19 25 12/17/2024 COMP. METAB [...] 129 48 - 129 Not Available [facility] ([facility]) [address] [place], [address], 12/17/2024 07:14:39 12/17/19 25 12/17/2024 COMP. METAB OLIC PANEL (14) AST (SGOT) 17 IU/L 0-40 Not Available [facility] ([facility]) [address] [place], [address], 12/17/2024 07:14:39 12/17/19 25 12/17/2024 COMP. METAB OLIC PANEL (14) ALT (SGPT) 13 IU/L 0-44 Not Available [facility] ([facility]) [address] [place], [address], 12/17/2024 07:14:39 12/17/19 25 12/17/2024 CBC WITH DIFFE RENTI AL/PL ATELE T WBC 8.6 x10e3 /uL 3.4-10 .8 Not Available [facility] ([facility]) [address], [place], [address], 12/17/2024 07:14:39 12/17/1912/17/2024 CBC WITH DIFFE RENTI AL/PL ATELE T RBC 4.62 x10e6 /uL 4.14-5 .80 Not Available [facility] ([facility]) [address], [place], [address], 12/17/2024 07:14:39 12/17/1912/17/2024 CBC WITH DIFFE RENTI AL/PL ATELE T hemoglobin 14.7 g/dL 13.0-1 7.7 Not Available [facility] ([facility]) [address], [place], [address], 12/17/2024 07:14:39 12/17/1912/17/2024 CBC WITH DIFFE RENTI AL/PL ATELE T hematocrit 44.2 % 37.5-5 1.0 Not Available [facility] ([facility]) [address] [place], [address], 12/17/2024 07:14:39 12/17/1912/17/2024 CBC WITH DIFFE RENTI AL/PL ATELE T MCV 96 fL 79-97 Not Available [facility] ([facility]) [address] [place], [address], 12/17/2024 07:14:39 12/17/1912/17/2024 CBC WITH DIFFE RENTI AL/PL ATELE T MCH 31.8 pg 26.6-3 3.0 Not Available [facility] ([facility]) [address], [place], [address], 12/17/2024 07:14:39 12/17/19 25 12/17/2024 CBC WITH DIFFE RENTI AL/PL ATELE T MCHC 33.3 g/dL 31.5-3 5.7 Not Available [facility] ([facility]) [address], [place], [address], 12/17/2024 07:14:39 12/17/1912/17/2024 CBC WITH DIFFE RENTI AL/PL ATELE T RDW 12.5 % 11.6-1 5.4 Not Available [facility] ([facility]) [address], [place], [address], 12/17/2024 07:14:39 12/17/19 25 12/17/2024 CBC WITH DIFFE RENTI AL/PL ATELE T platelets 287 x10e3 /uL 150-45 0 Not Available [facility] ([facility]) [address], [place], [address], 12/17/2024 07:14:39 12/17/19 25 12/17/2024 CBC WITH DIFFE RENTI AL/PL ATELE T neutrophils 58 % notest ab. Not Available [facility] ([facility]) [address], [place], [address], 12/17/2024 07:14:39 12/17/1912/17/2024 CBC WITH DIFFE RENTI AL/PL ATELE T lymphs 26 % notest ab. Not Available [facility] ([facility]) [address], [place], [address], 12/17/2024 07:14:39 12/17/19 25 12/17/2024 CBC WITH DIFFE RENTI AL/PL ATELE T monocytes 11 % notest ab. Not Available [facility] ([facility]) [address], [place], [address], 12/17/2024 07:14:39 12/17/19 25 12/17/2024 CBC WITH DIFFE RENTI AL/PL ATELE T eos 4 % notest ab. Not Available [facility] ([facility]) [address], [place], [address], 12/17/2024 07:14:39 12/17/19 25 12/17/2024 CBC WITH DIFFE RENTI AL/PL ATELE T basos 1 % notest ab. Not Available [facility] ([facility]) [address], [place], [address], 12/17/2024 07:14:39 12/17/19 25 12/17/2024 CBC WITH DIFFE RENTI AL/PL ATELE T neutrophils (absolute) 5.0 x10e3 /uL 1.4-7. 0 Not Available [facility] ([facility]) [address], [place], [address], 12/17/2024 07:14:39 12/17/19 25 12/17/2024 CBC WITH DIFFE RENTI AL/PL ATELE T lymphs (absolute) 2.2 x10e3 /uL 0.7-3. 1 Not Available [facility] ([facility]) [address], [place], [address], 12/17/2024 07:14:39 12/17/19 25 12/17/2024 CBC WITH DIFFE RENTI AL/PL ATELE T monocytes(ab solute) 0.9 x10e3 /uL 0.1-0. 9 Not Available [facility] ([facility]) [address], [place], [address], 12/17/2024 07:14:39 12/17/19 25 12/17/2024 CBC WITH DIFFE RENTI AL/PL ATELE T eos (absolute) 0.3 x10e3 /uL 0.0-0. 4 Not Available [facility] ([facility]) [address] [place], [address], 12/17/2024 07:14:39 12/17/19 25 12/17/2024 CBC WITH DIFFE RENTI AL/PL ATELE T baso (absolute) 0.1 x10e3 /uL 0.0-0. 2 Not Available [facility] ([facility]) [address], [place], [address], 12/17/2024 07:14:39 12/17/1912/17/2024 CBC WITH DIFFE RENTI AL/PL ATELE T immature granulocytes 0 % notest ab. Not Available [facility] ([facility]) [address], [place], [address], 12/17/2024 07:14:39 12/17/1912/17/2024 CBC WITH DIFFE RENTI AL/PL ATELE T immature grans (abs) 0.0 x10e3 /uL 0.0-0. 1 Not Available [facility] ([facility]) [address], [place], [address], 12/17/2024 07:14:39 Result Notes None recorded. Problems Name Problem SNOMED Code Status Onset Date Resolution Date Notes Provider Name and Address Organization Details Recorded Time Hyperlipide octavia 93685110 Active 2023 Adri London MD Attn: Mary denise,[address] [facility], [place], [address], [facility] 22:24:26 Chronic obstructive pulmonary disease 69667449 Active 2023 Adri London MD Attn: Mary denise,[address] [facility], [place], [address], [place] [facility] 4 22:24:27 Peripheral arterial occlusive disease 820061125 Active 2023 Adri London MD Attn: Mary g,[address] [facility], [place], [address], [place] [facility] 4 22:24:28 Anxiety 73061171 Active 2023 Adri London MD Attn: Mary g,[address] [facility], [place], [address], [place] - [facility] 4 22:24:30 Essential hypertensio n 99122620 Active 2023 Adri London MD Attn: Mary denise,[address] [facility], [place], [address], [place] - [facility] 4 22:24:43 Tobacco dependence syndrome 93607875 Active 2023 Adri London MD Attn: Mary denise,[address], [place], [address], [facility] - [facility] 4 22:24:44 Screening for malignant neoplasm of prostate Active 2023 Rasta Schmidt MA null, [place] - [facility] 4 15:05:26 Neck pain 33392593 Active 2023 Rasta Schmidt [place] null, [place] [facility] 4 15:05:27 Cellulitis of left lower limb 6210436570070 9109 Active 2024 Rasta Schmidt [place] null, [place] [facility] 5 15:10:28 Problem Notes None recorded. Procedures Surgical History Date Name Laterality Status Provider Name and Address Organization Details Recorded Time Angioplasty With Stent completed Chloe Jeffers [place] [facility] 06/27/2023 15:47:14 Imaging Results None [...] Updated DateTime 5 180.34 cm 24.5 kg/m2 51272.4 6 g 74 /min 96 % 140/70 mm[Hg] Eliza Nguyen MA [place] - [facility] 5 14:24:06 Social History Question Answer Notes LastModified by Organizat ion Details LastModified Time Tobacco Smoking Status Current Every Day Smoker RADHA Infante, [place] [facility] 06/27/2023 15:46:54 Do You Have An Advance [...] Or The Highest Degree You Have Received? TN80068-5 Information not available 02/21/2024 Are There Any Guns Present In Your Home? No Information not available 02/21/2024 In The Past 7 Days, How Many Days Did You Exercise? 0 No Exercise Regime But Patient Stays Active Information not available 02/21/2024 In The Past 7 Days, How Much Pain Have You [place]? None Information not available 02/21/2024 In General, [...] Past 7 Days, How Often Have You [place] Sleepy In The Daytime? 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 Moderate active lifestyle Information not available 02/21/2024 Mental Status Question Answer Note LastModified by Organization D etails LastModified Time Do you feel stressed (tense, restless, nervous, or anxious, or unable to sleep at night)? [id number] Information not available 02/21/2024 Family History Relationship Description Onset Age of this Age Resolved Age Notes LastModified by Organization Details LastModified Time Mother Malignant neoplasm of breast [email or web address] Not available 2023 15:46:30 Medical History Condition Response Coronary Artery Disease N Other N High Blood Pressure Y Atrial Fibrillation N Kidney or Bladder Problems N Thyroid Problems N GI Problems N Depression Y COPD Y Blood Clots Y Have you had a mammogram in the last yea r? N Skin Problems N Anemia N Heart Attack (OR) N Anxiety Disorder Y Diabetes N Muscle, Joint, or Bone Problems Y Seizures/Epilepsy N Have you had a colonoscopy in the last 1 0 years? N Acid Reflux (GERD) N Cancer Y Stroke N Asthma N Allergies N Have you had a PSA blood test in the las t year? Y High Cholesterol Y Hepatitis N Liver Disease N Headaches N Heart Failure N Osteoporosis N Immunizations [...] 30 mcg/0.3 mL dose 2 completed Chloe Jeffesr [place] null, [place] [facility] 06/27/2023 15:48:25 RSV, recombinant, protein subunit RSVpreF, adjuvant reconstituted, 0.5 mL, PF 3 completed Chloe Jeff[place], [place] [facility] 06/27/2023 15:48:25 Influenza, split virus, quadrivalent, PF 2 completed Chloe Jeffers [place] null, [place] [...] mL 4 completed Rasta [place] [facility] 02/14/2024 12:08:44 Influenza, high-dose, trivalent, PF 4 completed Rasta Schmidt [place] [facility] 02/14/2024 12:08:44 Pneumococcal conjugate PCV21, polysaccharide [id number] conjugate, PF 4 completed Not Available [employer] 12/16/2024 14:05:21 Pneumococcal conjugate PCV20, polysaccharide EMM616 conjugate, adjuvant, PF 4 completed Adri London MD Attn: Accounting[address] [place], [address], [place] [facility] 10/22/2023 23:20:41 Past Encounters Encounter ID Performer Location Encounter Start Date Encounter Closed Date Diagnosis/Indication Diagnosis SNOMED-CT Code Diagnosis ICD10 Code Diagnosis IMO Codes Diagnosis Note [id number] Adri London MD [facility] (Adult Med) [address] [place] [address] 12/16/2024 14:03:03 12/16/2024 15:50:06 Smoker 05326495 F17.200 Normal weight 98262781 Z 68.24 5509570281 BMI 24.5 Chronic ob structive pulmonary disease 38015567 J44.9 Peripheral arterial occlusive disease 290418510 I73.9 Anxiety 39490886 F41.9 Hyperlipidemia 74249457 E78.5 Essential hypertension 32105309 I10 Health Concerns Section Related Observation LastModified by Organization Detai ls LastModified Time None Recorded Concern Status LastModified by Organization Details LastModified Time None Recorded Payers Encounter Date Sequence Insurance Name Policy Number Policy Auguste Covered Member ID Auguste Member ID Guarantor Name 12/16/2024 1 [place] Vinny Kim [id number] Vinny Kim 12/16/2024 2 [place] [id number] Vinny Kim [id number] Vinny Kim Notes Date Note Type Note Provider Name and Address Organization Details Recorded Time 12/16/2024 text/html peripheral arterial occlusive disease having [...] atorvastatin Adri London MD Attn: [address] [place], [address], [facility] - [facility] 12/16/2024 22:10:50
== END 2025-03-05 08:32 | disposition home or self-care (01) ==
PROVIDERS: PCP Internal Medicine; Visit Provider Internal Medicine
DX: I73.9 Peripheral vascular disease, unspecified (principal)
CPT/HCPCS: 93922